=== PATIENT | female | born 1950 | race Caucasian/White ===

== ENCOUNTER 2023-04-04 16:30 | Inpatient (IN) | payer OTHER ==
--- OUTSIDE RECORDS SUMMARY | 2023-04-04 17:13 | XMS REPORT | Continuity of Care Document ---
:1950 Author Organization [facility] Address [address] [place] [address] [place] [id number] Care Team Providers Name Role Phone Ramiro Coe Primary Care Physician CHRETIEN_F Attending Clinician Unavailable Rosangela Mosquera RN Attending Clinician Unavailable Only, Ang Db Test Attending Clinician Unavailable Roseanne Pappas MD Attending Clinician ROSEANNE PAPPAS Attending Clinician Unavailable EDAROASH_Justin Attending Clinician Unavailable CHRETIEN_F Admitting Clinician Unavailable SCHAUBROECK_L Admitting Clinician Unavailable Payers Payer Name Policy Type Policy Number Effective Date Expiration Date S sam [place]: [id number] 2013 [employer] 00:00:00 - [facility] (AD[facility]) [id number] 2011 00:00:00 [place]: [id number] 2013 [employer] 00:00:00 Problems Condition Condition Condition Status Onset Resolution Last Treating Co mments Source Name Details Category Date Date Treatment Clinician Date Acute Acute Problem Active 2021-10 [place] pharyngiti Pharyngiti 1-28 [facility] Cough Cough Problem Active 2021-10 [place] 1-28 [facility] 00:[facility]: ty [facility] Chronic Chronic Problem Active [place] depression Depression 2-25 [facility] 00:00: ty 00 [facility] Neuropathy Neuropathy Problem Active S [facility] 2-25 [facility] 00:00: ty 00 [facility] Essential Essential Problem Active [facility] vanessa hypertensi Hypertensi 2-25 [email or web address] Rheumatoid Rheumatoid Problem Active [facility] arthritis Arthritis 2 Comm uni 00:00: ty 00 [facility] Osteoarthr Osteoarthr Problem Active S [facility] itis itis 12-11 Communi 00:00: ty 00 [facility] Fibromyalg Fibromyalg Problem Active S we[facility]y ia ia 12-11 Communi 00:00: ty 00 [facility] Allergies, Adverse Reactions, Alerts Allergy Allergy Status Severity Reaction(s) Onset Inactive Treating Comm ents Source Name Type Date Date Clinician Erythrom Allergy Active Severe Vomiting Sween y ycin to [facility] e [facility] Xarelto Allergy Active Moderate Other [place] to [facility] ty e [facility] Zofran Allergy Active Moderate Other [place] to [facility] ty e [facility] Ativan Allergy Active Severe Other [place] to [facility] ty e [facility] Bactrim Allergy Active Moderate Hives [place] to [facility] ty e [facility] NO KNOWN Drug Active [facility] ALLERGIE Class ity of S [facility] Social History Social Habit Start Date Stop Date Quantity Comments Source Sex Assigned At [birth year] [facility] 00:00:00 00:00:00 [facility] Smoking Status Start Date Stop Date Source Unknown if ever smoked [facility] Never Smoker [facility] Medications Ordered Filled Start Stop Current Ordering Indication Dosage Frequency Signature Comments Components Source Medication Medication Date Date Medication? Clinician (SIG) Name Name amitriptyli amitriptyli No 3 Q1D amitriptyl [place] ne 25 mg ne 25 mg ine 25 mg Co mmuni tablet Take tablet Take tablet ty 3 tablets 3 tablets Take 3 [facility] fat[facility] every day every day tablets l by oral by oral every day Clin ics route at route at by oral bedtime. bedtime. route at bedtime. benzonatate benzonatate No 1capsul TID benzonatat [place] 200 mg 200 mg e(s) e 200 mg Communi capsule capsule capsule ty Take 1 Take 1 Take 1 Hospita capsule 3 capsule 3 capsule 3 l times a day times a day times a Clinics by oral by oral day by route as route as oral route needed for needed for as needed 10 days. 10 days. for 10 days. Bystolic 10 Bystolic 10 No 1 Q1D Bystolic [place] mg tablet mg tablet 10 mg Comm uni Take 1 Take 1 tablet ty tablet tablet Take 1 Hospita every day every day tablet l by oral by oral every day Clin ics route at route at by oral bedtime. bedtime. route at bedtime. Bystolic 5 Bystolic 5 No 1 Q1D Bystolic 5 [place] mg tablet mg tablet mg tablet Communi Take 1 Take 1 Take 1 ty tablet tablet tablet Hospita every day every day every day l by oral by oral by oral Clinic s route. route. route. cefdinir cefdinir No 1capsul Q12H cefdinir [place] 300 mg 300 mg e(s) 300 mg Communi capsule capsule capsule ty Take 1 Take 1 Take 1 Hospita capsule capsule capsule l every 12 every 12 every 12 Cli nics hours by hours by hours by oral route oral route oral route for 10 for 10 for 10 days. days. days. clonidine clonidine No clonidine [place] 0.1 mg/24 0.1 mg/24 0.1 mg/24 Communi hr weekly hr weekly hr weekly ty transdermal transdermal transderma Hospita patch APPLY patch APPLY l patch l 1 PATCH 1 PATCH APPLY 1 Clinic s TOPICALLY TOPICALLY PATCH TO THE SKIN TO THE SKIN TOPICALLY EVERY 7 EVERY 7 TO THE DAYS DAYS SKIN EVERY 7 DAYS clonidine clonidine No clonidine [place] HCl 0.2 1 HCl 0.2 1 HCl 0.2 1 Communi po qam and po qam and po qam and ty 2 po qpm 2 po qpm 2 po qpm [facility] fat[facility] l Clinics cyclobenzap cyclobenzap No cyclobenza [place] rine 10 mg rine 10 mg fady 10 Communi tablet TAKE tablet TAKE mg tablet ty 1 TABLET BY 1 TABLET BY TAKE 1 Hospita MOUTH THREE MOUTH THREE TABLET BY l TIMES DAILY TIMES DAILY MOUTH Clinics THREE TIMES DAILY famotidine famotidine No 1 BID famotidine [place] 20 mg 20 mg 20 mg Communi tablet Take tablet Take tablet ty 1 tablet 1 tablet Take 1 Hospi ta twice a day twice a day tablet l by oral by oral twice a Clinic s route. route. day by oral route. hydrocodone hydrocodone No hydrocodon [place] 7.5 7.5 e 7.5 Communi mg-acetamin mg-acetamin mg-acetami ty ophen 325 ophen 325 nophen 325 Hospita mg tablet mg tablet mg tablet l TAKE 1 TAKE 1 TAKE 1 Clinics TABLET BY TABLET BY TABLET BY MOUTH THREE MOUTH THREE MOUTH TIMES DAILY TIMES DAILY THREE TIMES DAILY lidocaine 5 lidocaine 5 No lidocaine [place] % topical % topical 5 % Commu ni patch APPLY patch APPLY topical ty 1 PATCH 1 PATCH patch Hospita EVERY DAY EVERY DAY APPLY 1 l AND REMOVE AND REMOVE PATCH Cl inics AFTER 12 AFTER 12 EVERY DAY HOURS HOURS AND REMOVE AFTER 12 HOURS pioglitazon pioglitazon No pioglitazo [place] e 15 mg e 15 mg ne 15 mg Commu ni tablet TAKE tablet TAKE tablet ty 1 TABLET BY 1 TABLET BY TAKE 1 Hospita MOUTH EVERY MOUTH EVERY TABLET BY l DAY DAY MOUTH Clinics EVERY DAY Prilosec 10 Prilosec 10 No 1capsul Q1D Prilosec [place] mg mg e(s) 10 mg Communi capsule,del capsule,del capsule,de ty ayed ayed layed Hospita release release release l Take 1 Take 1 Take 1 Clinics capsule capsule capsule every day every day every day by oral by oral by oral route. route. route. Procardia Procardia No 1 Q1D Procardia [place] XL 60 mg XL 60 mg XL 60 mg Com leah tablet,exte tablet,exte tablet,ext ty nded nded ended Hospita release release release l Take 1 Take 1 Take 1 Clinics tablet tablet tablet every day every day every day by oral by oral by oral route. route. route. Proventil Proventil No 2puff(s Q6H Proventil [place] HFA 90 HFA 90 ) HFA 90 Communi mcg/actuati mcg/actuati mcg/actuat ty on aerosol on aerosol ion [facility] fat[facility] inhaler inhaler aerosol l Inhale 2 Inhale 2 inhaler Clin ics puffs every puffs every Inhale 2 6 hours by 6 hours by puffs inhalation inhalation every 6 route as route as hours by directed. directed. inhalation route as directed. Requip 1 mg Requip 1 mg No 3 Q1D Requip 1 [place] tablet Take tablet Take mg tablet Communi 3 tablets 3 tablets Take 3 ty every day every day tablets Ho spita by oral by oral every day l route at route at by oral Clin ics bedtime. bedtime. route at bedtime. Savella 50 Savella 50 No 1 BID Savella 50 [place] mg tablet mg tablet mg tablet Communi Take 1 Take 1 Take 1 ty tablet tablet tablet Hospita twice a day twice a day twice a l by oral by oral day by Clinics route. route. oral route. sertraline sertraline No sertraline [place] 100 mg 100 mg 100 mg Communi tablet TAKE tablet TAKE tablet ty 1 TABLET BY 1 TABLET BY TAKE 1 Hospita MOUTH EVERY MOUTH EVERY TABLET BY l DAY DAY MOUTH Clinics EVERY DAY Synthroid Synthroid No Synthroid [place] 300 mcg 300 mcg 300 mcg Commun i tablet TAKE tablet TAKE tablet ty 1 TABLET BY 1 TABLET BY TAKE 1 Hospita MOUTH EVERY MOUTH EVERY TABLET BY l MORNING MORNING MOUTH Clinics EVERY MORNING Immunizations Ordered Immunization Filled Immunization Date Status Commen Source Name Name influenza, influenza, 2022-08-27 Completed [facility] ty unspecified unspecified 00:00:00 Hospital Cli nics formulation formulation COVID-19 COVID-19 2021-12-19 Completed [place] ty (SARS-COV-2) (SARS-COV-2) 00:00:00 Hospital C linics vaccine, unspecified vaccine, unspecified COVID-19 COVID-19 2020-11-21 Completed [place] Commun[facility] ty (SARS-COV-2) (SARS-COV-2) 00:00:00 [facility] C linics vaccine, unspecified vaccine, unspecified Vital Signs Vital Name Observation Time Observation Value Comments Source BP Diastolic 2022-09-13 00:00:00 45 mm[Hg] [facility] BP Systolic 2022-09-13 00:00:00 99 mm[Hg] [facility] Procedures Procedure Date / Time Performing Clinician Source Performed Total Replacement of Hip [facility] Thyroid Surgery [facility] Section [facility] Cholecystectomy [facility] Gastric Bypass [facility] Plan of Care Planned Activity Planned Date Details Comments Source Diagnostic Test 2022-09-13 rapid SARS CoV 2 Ag, [facility] Pending 00:00:00 QL IA, respiratory Hospital Clinics specimen [code = rapid SARS CoV 2 Ag, QL IA, respiratory specimen] Diagnostic Test 2022-09-13 rapid strep group A, [facility] Pending 00:00:00 throat [code = rapid Hospita Clinics strep group A, throat] Diagnostic Test 2022-09-13 rapid flu (A+B) [facility] Pending 00:00:00 [code = rapid flu Hospital linics (A+B)] Instructions [facility] Encounters Start End Encounter Admission Attending Care Care Encounter Source Date/Time Date/Time Type Type Clinicians Facility Department ID 2022-09-13 2022-09-13 Outpatient CHRETIEN_F [facility] [id number] - [place] 00:00:00 00:00:00 128 Commun i ty Hospita l Clinics 2022-09-13 2022-09-13 [facility] [place] [facility] [place] [id number] [place] 00:00:00 00:00:00 Gayatri Degroot [facility] [employer] Hospital - ty C: [address] [facility], CL[address], [place] [address] , Ph. 2021-10-13 2021-10-13 Letter VEL Mosquera [id number] Univers 00:00:00 00:00:00 (Out) Rosangela DRUMMOND [id number] it y of [facility] [id number] Stephen as [id number] [address] 2021-10-12 2021-10-12 Laboratory Only, Ang Db Test [facility] [id number] Univers 13:00:00 13:15:00 Only Roseanne Pappas [facility] [id number] ity [facility] [id number] Stephen as CAMPBELL?BLEA [id number] [address] MEDICAL OFFICE [facility]ILDING 2021-10-12 2021-10-12 Outpatient R ELYSE [facility] [id number] Univers 13:00:00 13:00:00 ROSEANNE boone [facility] 2019-03-15 2019-03-15 Outpatient LADI [facility] [id number] [place] 00:00:00 00:00:00 _L 530 Commun i [facility] l Clinics Results This patient has no known results.
[2023-04-04] MEDS ORDERED: ONDANSETRON 4 MG/2 ML VIAL IV PRN (17:50)
[2023-04-04] MEDS ORDERED: VANCOMYCIN 1 GM in NA CHLORIDE 0.9% 250 ML IVPB ONE ×2 (18:00→21:00)
[2023-04-04 18:35] LABS: Absolute Lymphocytes (CBC) 3.2 K/uL (0.7-4.9); Hematocrit 33.7 % (36.0-45.0); Lymphocytes % 36.3 % (15.3-44.8); MCV 90.4 fL (80-100); MPV 7.6 fL (7.6-11.3); RBC Red Blood Cell Count 3.73 M/uL (3.86-4.86)
--- NOTE | 2023-04-04 18:41 | RAD REPORT ---
EXAM DESCRIPTION: RAD - Foot Right 3 View - 04/04/2023 6:09 pm CLINICAL HISTORY: cellulitis COMPARISON: No comparisons TECHNIQUE: Right foot, 3 views. FINDINGS: Destructive changes and osseous lucency surrounding the fifth digit proximal and probably distal interphalangeal joints. No dislocation or periosteal reaction. Soft tissue swelling about the fifth digit. No soft tissue gas. Moderate calcaneal spur. IMPRESSION: Osseous lucency and destructive changes along the fifth digit as above, raising concern for osteomyelitis.
[2023-04-04] MEDS ORDERED: GLUCAGON 1 MG/VIAL IM PRN ×2 (19:02→20:00)
[2023-04-04] MEDS ORDERED: D50W 25 GM/50 ML SYRINGE IV PRN (19:02)
[2023-04-04] MEDS ORDERED: D10W 125 ML IV PRN (19:17)
[2023-04-04] MEDS: INSULIN -REGULAR HUMAN 50 UNIT/0.5 ML ML SQ SCH (20:38)
[2023-04-04 20:39] VITALS: BMI 39.3
[2023-04-04] MEDS ORDERED: VANCOMYCIN 1 GM in NA CHLORIDE 0.9% 250 ML IVPB SCH (21:00)
[2023-04-05 01:26] LABS: Specific Gravity 1.025 (1.005-1.030); Urine Bacteria None Seen /HPF (<20); Urine Bilirubin NEGATIVE (Negative); Urine Blood Negative (Negative); Urine Clarity Clear (Clear); Urine Color Light-Yellow (Yellow); Urine Glucose 4+ (Over) (Negative); Urine Mucus Slight /HPF (None Seen); Urine Protein TRACE (Negative); Urine RBC <5 /HPF (None Seen); Urine Urobilinogen Normal (Normal); Urine pH 5.5 (5.0-7.0)
[2023-04-05] MEDS ORDERED: VANCOMYCIN 1 GM in NA CHLORIDE 0.9% 250 ML IVPB SCH (06:00)
[2023-04-05] MEDS: INSULIN -REGULAR HUMAN 50 UNIT/0.5 ML ML SQ SCH ×4 (07:30→21:05)
[2023-04-05 07:37] LABS: Albumin 2.8 g/dL (3.4-5.0); Bilirubin Total 0.3 mg/dL (0.2-1.0); Potassium 3.8 mEq/L (3.5-5.1); Protein, Total 6.8 g/dL (6.4-8.2)
[2023-04-05] MEDS ORDERED: LORTAB PO PRN (14:46)
[2023-04-05] MEDS ORDERED: CYCLOBENZAPRINE 10 MG TAB PO PRN (14:46)
[2023-04-05] MEDS ORDERED: HOME MED 1 EA UNK (Clonidine Hcl [Clonidine Hcl Er] 0.1 MG Tab.Er.12h) PO PRN (14:46)
--- NOTE | 2023-04-05 15:28 | PN ---
Date of Progress Note: 04/05/2023 The patient's wounds, however, already improved on the vancomycin doses. We will continue with her h ome medications except for a sliding scale insulin and continue the present regimen. Slight elevation of the creatinine, we will continue to monitor this as well. HR/MODL Voice ID: [id number] Report ID: [id number]
[2023-04-05] MEDS ORDERED: MECLIZINE HCL 12.5 MG TAB PO PRN (17:28)
[2023-04-05] MEDS: Milnacipran Hcl [Savella] 50 MG Tablet PO SCH (18:00)
[2023-04-05 18:09] LABS: Absolute Lymphocytes (CBC) 2.5 K/uL (0.7-4.9); Hematocrit 34.2 % (36.0-45.0); Lymphocytes % 28.8 % (15.3-44.8); MPV 7.7 fL (7.6-11.3); RBC Red Blood Cell Count 3.76 M/uL (3.86-4.86)
[2023-04-05 18:19] LABS: Potassium 3.9 mEq/L (3.5-5.1)
--- NOTE | 2023-04-05 18:29 | RAD REPORT ---
EXAM DESCRIPTION: CT - Abdomen Wo Contrast - 04/05/2023 4:20 pm CLINICAL HISTORY: Abdominal pain COMPARISON: None TECHNIQUE: Computed axial tomography from the diaphragm to the iliac crest was obtained. Oral and IV contrast not given. All CT scans are performed using dose optimization technique as appropriate and may include automated exposure control or mA/KV adjustment according to patient size. FINDINGS: The evaluation of solid organs, bowel and vessels is limited secondary to the lack of IV c ontrast administration. 12 millimeter calculus left renal pelvis. No hydronephrosis. Several small right renal calculi. No hydronephrosis. The liver, spleen, pancreas and adrenals grossly normal. Cholecystectomy The visualized bowel caliber and wall thickness is normal Postsurgical changes involve the stomach. IMPRESSION: Bilateral nonobstructing renal calculi
[2023-04-05] MEDS ORDERED: NEBIVOLOL HCL 5 MG TAB PO SCH (21:00)
[2023-04-05] MEDS: DOCUSATE NA 100 MG CAP PO SCH (21:00)
[2023-04-05] MEDS ORDERED: HOME MED 1 EA UNK (Nebivolol Hcl [Bystolic] 10 MG Tablet) PO SCH (21:00)
[2023-04-05] MEDS ORDERED: HOME MED 1 EA UNK (Clonidine Hcl [Clonidine Hcl Er] 0.1 MG Tab.Er.12h) PO SCH (21:00)
[2023-04-05] MEDS: ROPINIROLE HCL 1 MG TAB PO SCH (21:03)
[2023-04-05] MEDS: CALCIUM CARBONATE 500 MG TAB PO SCH (21:04)
[2023-04-05] MEDS: VITAMIN D 5,000 UNIT CAP PO SCH (21:04)
[2023-04-05] MEDS: AMITRIPTYLINE 25 MG TAB PO SCH (21:04)
[2023-04-05] MEDS: FAMOTIDINE 20 MG TAB PO SCH (21:04)
[2023-04-05] MEDS: NEBIVOLOL HCL 20 MG TABLET PO SCH (21:42)
[2023-04-06] MEDS: LEVOTHYROXINE SOD 0.1 MG TAB PO SCH (05:52)
[2023-04-06] MEDS: Omeprazole [Prilosec] 40 MG Capsule.Dr PO SCH (05:53)
[2023-04-06] MEDS: Milnacipran Hcl [Savella] 50 MG Tablet PO SCH ×2 (05:54→17:18)
[2023-04-06] MEDS: INSULIN -REGULAR HUMAN 50 UNIT/0.5 ML ML SQ SCH ×4 (07:30→21:00)
[2023-04-06] MEDS ORDERED: VANCOMYCIN 1.5 GM in NA CHLORIDE 0.9% 500 ML IVPB SCH (08:00)
[2023-04-06] MEDS: DOCUSATE NA 100 MG CAP PO SCH ×2 (08:28→21:01)
[2023-04-06] MEDS: CALCIUM CARBONATE 500 MG TAB PO SCH ×2 (08:36→21:00)
[2023-04-06] MEDS: NIFEDIPINE XL 60 MG TABLET PO SCH (08:36)
[2023-04-06] MEDS: Dapagliflozin Propanediol [Farxiga] 10 MG Tablet PO SCH (08:36)
[2023-04-06] MEDS: ENOXAPARIN 30 MG/0.3 ML SQ SCH (08:36)
--- NOTE | 2023-04-06 12:47 | PN ---
Date of Progress Note: 04/06/2023 Patient states she does feel considerably better as far as her legs are concerned. Still quite tende r on the heel area, although seems to be healing quite well. The toe does still show some cellulitis . Area has been cultured. We are awaiting the results. We will continue on the vancomycin. HR/MODL Voice ID: [id number] Report ID: [id number]
--- NOTE | 2023-04-06 13:15 | RAD REPORT ---
EXAM DESCRIPTION: MRI - Foot Right Wo Cont - 04/06/2023 1:02 pm CLINICAL HISTORY: f/u suspicious xray COMPARISON: Foot Right 3 View dated 04/04/2023; Ankle Left Wo Cont dated 03/17/2023 TECHNIQUE: Multiplanar multisequence MRI of the right foot, obtained without IV contrast. FINDINGS: Soft tissue defect along the dorsal aspect of the distal fifth toe. Surrounding soft tissu e swelling, and subcutaneous edema which extends along the dorsal aspect of the lateral forefoot to m idfoot. Marrow signal abnormalities with low T1 signal, and increased T2 signal along the distal and middle f ifth toe phalanges with some collapse of the middle phalanx appreciated. Similar milder signal abnorm alities along the proximal phalanx extending to the proximal metaphysis with some collapse of the hea d phalanx appreciated. Joint alignment is maintained. No marrow signal abnormalities of the remainder of the digits or the metatarsals. No appreciable fluid collections within limits of noncontrast evaluation. Pronounced fatty infiltration of the deep muscles of the foot. The major tendinous structures are unr emarkable. IMPRESSION: Marrow signal abnormalities suggesting osteomyelitis involving the fifth toe phalanges, sparing the base of the proximal phalanx. Destructive changes along the middle phalanx and head of th e proximal phalanx are.. No appreciable fluid collections.
[2023-04-06] MEDS: HYDROCODONE/APAP 7.5/325 MG TAB PO PRN (14:13)
[2023-04-06 18:07] LABS: Absolute Lymphocytes (CBC) 2.9 K/uL (0.7-4.9); Hematocrit 30.5 % (36.0-45.0); Lymphocytes % 36.7 % (15.3-44.8); MCV 91.3 fL (80-100); MPV 7.8 fL (7.6-11.3); RBC Red Blood Cell Count 3.34 M/uL (3.86-4.86)
[2023-04-06 18:12] LABS: Potassium 3.9 mEq/L (3.5-5.1)
[2023-04-06] MEDS: NEBIVOLOL HCL 20 MG TABLET PO SCH (20:59)
[2023-04-06] MEDS: AMITRIPTYLINE 25 MG TAB PO SCH (21:00)
[2023-04-06] MEDS: ROPINIROLE HCL 1 MG TAB PO SCH (21:00)
[2023-04-06] MEDS: FAMOTIDINE 20 MG TAB PO SCH (21:00)
[2023-04-06] MEDS: SERTRALINE HCL 50 MG TAB PO SCH (21:01)
[2023-04-06] MEDS: VITAMIN D 5,000 UNIT CAP PO SCH (21:01)
[2023-04-06] MEDS: HYDROCORTISONE ACETATE 25MG SUPP PR PRN (23:59)
[2023-04-07] MEDS: Milnacipran Hcl [Savella] 50 MG Tablet PO SCH ×2 (06:00→07:59)
[2023-04-07] MEDS: LEVOTHYROXINE SOD 0.1 MG TAB PO SCH (06:00)
[2023-04-07] MEDS: Omeprazole [Prilosec] 40 MG Capsule.Dr PO SCH (06:00)
[2023-04-07] MEDS: INSULIN -REGULAR HUMAN 50 UNIT/0.5 ML ML SQ SCH ×4 (07:30→21:10)
[2023-04-07] MEDS: Dapagliflozin Propanediol [Farxiga] 10 MG Tablet PO SCH (07:59)
[2023-04-07] MEDS: MUPIROCIN 2% OINT 22GM TUBE TOP SCH ×3 (09:00→21:10)
[2023-04-07] MEDS: ENOXAPARIN 30 MG/0.3 ML SQ SCH (09:04)
[2023-04-07] MEDS: NIFEDIPINE XL 60 MG TABLET PO SCH (09:04)
[2023-04-07] MEDS: DOCUSATE NA 100 MG CAP PO SCH ×2 (09:04→21:10)
[2023-04-07] MEDS: CALCIUM CARBONATE 500 MG TAB PO SCH ×2 (09:04→21:10)
[2023-04-07] MEDS: HYDROCODONE/APAP 7.5/325 MG TAB PO PRN (11:17)
[2023-04-07] MEDS ORDERED: VANCOMYCIN 1.5 GM in NA CHLORIDE 0.9% 500 ML IVPB SCH (18:00)
[2023-04-07 18:18] LABS: Potassium 3.9 mEq/L (3.5-5.1)
[2023-04-07 18:23] LABS: Absolute Lymphocytes (CBC) 2.9 K/uL (0.7-4.9); Lymphocytes % 39.6 % (15.3-44.8); MCV 90.7 fL (80-100); MPV 7.7 fL (7.6-11.3); RBC Red Blood Cell Count 3.53 M/uL (3.86-4.86)
--- NOTE | 2023-04-07 19:34 | PN ---
Date of Progress Note: 04/06/2023 The patient's problem continues to be the 5th digit with a positive osteo of the distal 2 phalanges a nd the sparing of the proximal. Discussion of the possibilities with the patient included IV antibio tics in the form of vancomycin with a PICC line versus a surgical procedure. She actually preferred to surgical procedure and at this stage, I intend to agree; however, before definitive recommendation will be made, we will discuss further with the surgeon and Infectious Disease. HR/MODL Voice ID: [id number] Report ID: [id number]
[2023-04-07] MEDS: ROPINIROLE HCL 1 MG TAB PO SCH (21:07)
[2023-04-07] MEDS: NEBIVOLOL HCL 20 MG TABLET PO SCH (21:07)
[2023-04-07] MEDS: SERTRALINE HCL 50 MG TAB PO SCH (21:09)
[2023-04-07] MEDS: FAMOTIDINE 20 MG TAB PO SCH (21:09)
[2023-04-07] MEDS: AMITRIPTYLINE 25 MG TAB PO SCH (21:09)
[2023-04-07] MEDS: VITAMIN D 5,000 UNIT CAP PO SCH (21:10)
[2023-04-07] MEDS: HYDROCORTISONE ACETATE 25MG SUPP PR PRN (21:29)
[2023-04-08] MEDS: Milnacipran Hcl [Savella] 50 MG Tablet PO SCH ×2 (06:00→17:07)
[2023-04-08] MEDS: LEVOTHYROXINE SOD 0.1 MG TAB PO SCH (06:00)
[2023-04-08] MEDS: Omeprazole [Prilosec] 40 MG Capsule.Dr PO SCH (06:00)
[2023-04-08] MEDS: HYDROCODONE/APAP 7.5/325 MG TAB PO PRN ×2 (06:14→14:00)
[2023-04-08] MEDS: INSULIN -REGULAR HUMAN 50 UNIT/0.5 ML ML SQ SCH ×4 (07:30→20:58)
[2023-04-08] MEDS: Dapagliflozin Propanediol [Farxiga] 10 MG Tablet PO SCH (09:00)
--- NOTE | 2023-04-08 09:24 | P.CNS ---
Date of Consult: 04/08/23 Reason for Consult: Osteomyelitis History of Present Illness: Patient is a 73 yo female with a history of HTN, DM2, RA, gastroparesis who was admitted to the hospital for evaluation of osteomyelitis possible amputation of right 5th toe. She is seen by wound care clinic outpatient for diabetic foot ulcer of left heel and right 5th toe. MRI right foot revealing "Marrow signal abnormalities suggesting osteomyelitis involving the fifth toe phalanges, sparing the base of the proximal phalanx. Destructive changes along the middle phalanx and head of the proximal phalanx. No appreciable fluid collections." ID consulted for osteomyelitis. Allergies abatacept [From Orencia] Allergy (Severe, Verified 02/02/23 17:17) respiratory distress maltose [From Orencia] Allergy (Severe, Verified 02/02/23 17:17) respiratory distress aspirin Allergy (Intermediate, Verified 02/02/23 17:17) dyspepsia erythromycin base [Erythromycin Base] Allergy (Intermediate, Verified 02/02/23 17:17) Rash leflunomide [From Arava] Allergy (Intermediate, Verified 02/02/23 17:17) cellulitis ondansetron HCl [From Zofran] Allergy (Intermediate, Verified 02/02/23 17:17) Headache rifampin Allergy (Intermediate, Verified 02/02/23 17:17) Joint Pain Sulfa (Sulfonamide Antibiotics) Allergy (Intermediate, Verified 02/02/23 17:17) Hives/Rash tofacitinib citrate [From Xeljanz] Allergy (Intermediate, Verified 02/02/23 17:17) Shortness of breath lorazepam [From Ativan] Adverse Reaction (Severe, Verified 02/02/23 17:17) confusion diphenhydramine HCl [From Benadryl] Adverse Reaction (Mild, Verified 02/02/23 17:17) Agitation rivaroxaban [From Xarelto] Adverse Reaction (Verified 02/02/23 17:17) Joint Pain aspirin Allergy (Uncoded 02/02/23 17:17) Unknown Biologics for Arthritis Allergy (Uncoded 02/02/23 17:17) Unknown Home medications list reviewed: Yes Home Medications: Cyclobenzaprine [Flexeril*] 1 tab PO TID PRN 01/22/21 Dapagliflozin Propanediol [Farxiga] 1 tab PO DAILY 01/22/21 Famotidine [Pepcid] 4 tab PO BEDTIME 01/22/21 Lortab 7.5 Mg 1 tab PO TID PRN 01/22/21 Milnacipran HCl [Savella] 1 tab PO BID 6AM 6PM 01/22/21 Nifedipine [Procardia Xl] 1 tab PO DAILY 01/22/21 Ropinirole HCl [Requip] 1 tab PO BEDTIME 01/22/21 cloNIDine HCL [Clonidine HCl ER] 1 tab PO DAILY PRN 01/22/21 cloNIDine HCL [Clonidine HCl ER] 2 tab PO BEDTIME 01/22/21 Amitriptyline [Elavil*] 75 mg PO BEDTIME 04/04/23 Calcium Citrate 400 mg PO BID 04/04/23 Cholecalciferol (Vitamin D3) [Vitamin D 5,000 IU Cap*] 1 cap PO BEDTIME 04/04/23 Docusate Sodium 100 mg PO BID 04/04/23 Insulin Degludec [Tresiba] 16 unit SQ DAILY 04/04/23 Levothyroxine [Synthroid] 0.3 mg PO [id number] 04/04/23 Meclizine HCl 25 mg PO PRN PRN 04/04/23 Nebivolol HCl [Bystolic] 20 mg PO BEDTIME 04/04/23 Omeprazole [Prilosec] 80 mg PO [id number] 04/04/23 Pioglitazone HCl [Actos] 10 mg PO 04/04/23 - Past Medical/Surgical History Diabetic: Yes -: MRSA -: HTN -: DM -: RHEUMATOID ARTHRITIS -: OA -: GASTROPARESIS -: DVT X3 -: PNEUMONIA -: CELLULITIS BOTH LEGS -: POLIO -: FIBROMYALGIA -: THYROID CA-1961 -: Thyroidectomy -: Tonsillectomy -: Cholecystectomy -: Hysterectomy -: -: Gastric Bypass -: Panniculectomy - Family History Father Medical History: Heart disease, Hypertension Mother Medical History: Hypertension, Cancer Sister Medical History: Hypertension - Social History Smoking Status: Never smoker, Unknown if ever smoked Alcohol use: No CD- Drugs: No Caffeine use: Yes Review of Systems 10-point ROS is otherwise unremarkable Musculoskeletal: Foot Pain Physical Examination Temp Pulse Resp BP Pulse Ox 97.8 F 59 16 127/56 L 96 04/08/23 07:57 04/08/23 07:57 04/08/23 07:57 04/08/23 07:57 04/08/23 07:57 General: Alert, Oriented x3 HEENT: Atraumatic, Normocephalic Neck: Supple, JVD not distended Respiratory: Clear to auscultation bilaterally, Normal air movement Cardiovascular: No edema, Normal pulses Gastrointestinal: Normal bowel sounds, Soft and benign, Non-distended Musculoskeletal: No clubbing, No swelling Integumentary: No rashes, Diabetic ulcer (left heel and right 5th toe) Neurological: Normal speech, Normal tone, Normal affect Laboratory Data (last 24 hrs) 04/07/23 17:36: Sodium 138, Potassium 3.9, BUN 21 H, Creatinine 1.03 H, Glucose 147 H 04/07/23 17:36: WBC 7.30, Hgb 10.4 L, Hct 32.0 L, Plt Count 275 Imagings Data: - MRI Right Foot 04/06: "Marrow signal abnormalities suggesting osteomyelitis involving the fifth toe phalanges, sparing the base of the proximal phalanx" - CT Abdomen 04/06: "Bilateral nonobstructing renal calculi" Conclusions/Impression: Problem List Hypertension DM2 RA OA Gastroparesis Hx gastric sleeve Fibromyalgia Osteomyelitis Right Foot MRSA Right Foot Wound - Patient has been on and off antibiotics since October for chronic right heel ulcer. Seen by wound care clinic and PCP as outpatient. - MRI Right Foot 04/06 reporting osteomyelitis of right 5th toe - Right foot wound culture 04/06: Methicillin-Resistant Staphylococcus aureus - Currently on Vancomycin IV (started 04/07) Recommendations Osteomyelitis of right fifth toe. 2 options available for patient at this time either amputation of 5th toe or continue IV antibiotic for [address] Coe and Dr. George, patient to decide which route she would like to take. Dr. Coe, Dr. George and have all spoken with patient regarding treatment plan options. Patient to decide surgical or medical management route. - If medical management route, we recommend continuing Vancomycin IV for 6 weeks duration. Patient with gastroparesis, likely poor candidate for oral antibiotic therapy. - Continue wound care per surgery/wound care team. - Nasal swab for staph colonization pending. If positive, [facility] will follow up with patient as needed. Case discussed with Bharati Mccartney. Thank you Dr. Coe for consult.
[2023-04-08] MEDS: NIFEDIPINE XL 60 MG TABLET PO SCH (09:52)
[2023-04-08] MEDS: ENOXAPARIN 30 MG/0.3 ML SQ SCH (09:52)
[2023-04-08] MEDS: CALCIUM CARBONATE 500 MG TAB PO SCH ×2 (09:54→20:56)
[2023-04-08] MEDS: DOCUSATE NA 100 MG CAP PO SCH ×2 (09:54→20:55)
[2023-04-08] MEDS: MUPIROCIN 2% OINT 22GM TUBE TOP SCH ×2 (09:55→20:59)
[2023-04-08] MEDS: VANCOMYCIN 1.5 GM in NA CHLORIDE 0.9% 500 ML IVPB SCH (17:06)
[2023-04-08 18:42] LABS: Absolute Lymphocytes (CBC) 2.7 K/uL (0.7-4.9); Hematocrit 33.7 % (36.0-45.0); Lymphocytes % 36.5 % (15.3-44.8); MCV 91.5 fL (80-100); MPV 7.8 fL (7.6-11.3); RBC Red Blood Cell Count 3.68 M/uL (3.86-4.86)
[2023-04-08 18:44] LABS: Potassium 3.7 mEq/L (3.5-5.1)
[2023-04-08] MEDS: VITAMIN D 5,000 UNIT CAP PO SCH (20:55)
[2023-04-08] MEDS: NEBIVOLOL HCL 20 MG TABLET PO SCH (20:55)
[2023-04-08] MEDS: FAMOTIDINE 20 MG TAB PO SCH (20:55)
[2023-04-08] MEDS: ROPINIROLE HCL 1 MG TAB PO SCH (20:56)
[2023-04-08] MEDS: AMITRIPTYLINE 25 MG TAB PO SCH (20:56)
[2023-04-08] MEDS: SERTRALINE HCL 50 MG TAB PO SCH (20:56)
--- NOTE | 2023-04-08 21:48 | RAD REPORT ---
EXAM DESCRIPTION: US - Extrem Venous W Compress [place] - 04/08/2023 9:36 pm CLINICAL HISTORY: eval circulation Bilateral leg edema and swelling. COMPARISON: Extremity Nonvascular Complete dated 12/13/2017 TECHNIQUE: Real-time sonographic interrogation of the left and right lower extremity deep venous sys tems was performed. FINDINGS: Normal compressibility, flow augmentation, phasic flow and spontaneous flow is identified in both the left and right lower extremity deep venous systems. IMPRESSION: No sonographic evidence of left or right lower extremity deep venous thrombosis.
--- NOTE | 2023-04-08 21:52 | RAD REPORT ---
EXAM DESCRIPTION: US - Lower Extremity Arterial Bilat - 04/08/2023 9:36 pm CLINICAL HISTORY: eval circulation Leg pain, claudication. COMPARISON: No comparisons TECHNIQUE: Bilateral lower extremity arterial Doppler examination was performed with waveform tracin g and velocity measurements. FINDINGS: Triphasic waveforms are seen throughout both lower extremity arterial systems to the level of the pop liteal arteries. Monophasic waveforms are seen bilaterally below the level of the popliteal arteries within the under water assistant ior tibial and dorsalis pedis arteries. IMPRESSION: [id number] bilateral infrapopliteal peripheral vascular disease.
[2023-04-09] MEDS: Milnacipran Hcl [Savella] 50 MG Tablet PO SCH ×2 (05:20→18:00)
[2023-04-09] MEDS: LEVOTHYROXINE SOD 0.1 MG TAB PO SCH (05:21)
[2023-04-09] MEDS: Omeprazole [Prilosec] 40 MG Capsule.Dr PO SCH (05:21)
[2023-04-09] MEDS: INSULIN -REGULAR HUMAN 50 UNIT/0.5 ML ML SQ SCH ×4 (07:30→21:39)
[2023-04-09] MEDS: Dapagliflozin Propanediol [Farxiga] 10 MG Tablet PO SCH (09:00)
[2023-04-09] MEDS: NIFEDIPINE XL 60 MG TABLET PO SCH (09:17)
[2023-04-09] MEDS: ENOXAPARIN 30 MG/0.3 ML SQ SCH (09:17)
[2023-04-09] MEDS: CALCIUM CARBONATE 500 MG TAB PO SCH ×2 (09:18→21:40)
[2023-04-09] MEDS: DOCUSATE NA 100 MG CAP PO SCH ×2 (09:19→21:38)
[2023-04-09] MEDS: HYDROCODONE/APAP 7.5/325 MG TAB PO PRN ×2 (09:19→21:55)
[2023-04-09] MEDS: MUPIROCIN 2% OINT 22GM TUBE TOP SCH ×2 (09:19→21:00)
[2023-04-09] MEDS: VANCOMYCIN 1.5 GM in NA CHLORIDE 0.9% 500 ML IVPB SCH (18:20)
[2023-04-09] MEDS: NEBIVOLOL HCL 20 MG TABLET PO SCH (21:00)
[2023-04-09] MEDS: AMITRIPTYLINE 25 MG TAB PO SCH (21:37)
[2023-04-09] MEDS: FAMOTIDINE 20 MG TAB PO SCH (21:40)
[2023-04-09] MEDS: SERTRALINE HCL 50 MG TAB PO SCH (21:40)
[2023-04-09] MEDS: VITAMIN D 5,000 UNIT CAP PO SCH (21:41)
[2023-04-09] MEDS: HYDROCORTISONE ACETATE 25MG SUPP PR PRN (21:55)
[2023-04-09] MEDS: ROPINIROLE HCL 1 MG TAB PO SCH (21:55)
[2023-04-10] MEDS: Omeprazole [Prilosec] 40 MG Capsule.Dr PO SCH (06:00)
[2023-04-10] MEDS: Milnacipran Hcl [Savella] 50 MG Tablet PO SCH ×2 (06:00→16:50)
[2023-04-10] MEDS: LEVOTHYROXINE SOD 0.1 MG TAB PO SCH (06:00)
[2023-04-10] MEDS: INSULIN -REGULAR HUMAN 50 UNIT/0.5 ML ML SQ SCH ×4 (07:30→21:00)
--- NOTE | 2023-04-10 08:01 | RAD REPORT ---
EXAM DESCRIPTION: US - UPPER EXTREMITY VENOUS UNILATE - 04/10/2023 6:39 am CLINICAL HISTORY: redness, bruising with pain to right forearm Arm swelling and pain COMPARISON: No comparisons FINDINGS: Right upper extremity venous system was interrogated with Doppler technique. Normal flow, compressibility and augmentation was noted. There is no DVT present. IMPRESSION: No evidence of right upper extremity deep venous thrombosis.
[2023-04-10] MEDS: Dapagliflozin Propanediol [Farxiga] 10 MG Tablet PO SCH (09:00)
[2023-04-10] MEDS: MUPIROCIN 2% OINT 22GM TUBE TOP SCH ×2 (09:00→21:12)
--- NOTE | 2023-04-10 09:04 | P.PN ---
Subjective Date of Service: 04/10/23 patient is doing well no complaints. Patient appears to be in good spirits. Review of Systems 10-point ROS is otherwise unremarkable Physical Examination - Vital Signs Temperature: 97.2 F Blood Pressure: 149/67 Pulse: 58 Respirations: 16 Pulse Ox (%): 94 - Physical Exam General: Alert, In no apparent distress HEENT: Atraumatic Cardiovascular: No edema Musculoskeletal: No clubbing, No swelling Neurological: Normal speech, Normal tone, Sensation intact, Cranial nerves 3-12 intact, Normal affect - Studies Microbiology Data (last 24 hrs): 04/08/23 14:10 Nostrils (Not Nasopharnyx) Culture & Sensitivity - Final Meth Resistant Staph Aureus Medications List Reviewed: Yes Assessment & Plan - Problems (Diagnosis) (1) Osteomyelitis Current Visit: Yes Status: Acute (2) Diabetic ulcer of right fifth toe Current Visit: No Status: Acute - Plan 1. Continue with IV antibiotic 2. Continue with local wound care 3. Wound care consultation/surgical consultation Appreciated; vascular consultation pending for Tuesday 4. Hep-Lock IV 5. Monitor CBC and renal function 6. Strict blood sugar monitoring 7. Pain control 8. GI and DVT prophylaxis Discharge Plan: Home Plan to discharge in: Greater than 2 days - Advance Directives Does patient have a Living Will: No Does patient have a Durable POA for Healthcare: No - Code Status/Comfort Care Code Status Assessed: Yes Code Status: Full Code Critical Care: No Time Spent Managing PTS Care (In Minutes): 35
[2023-04-10] MEDS: NIFEDIPINE XL 60 MG TABLET PO SCH (10:42)
[2023-04-10] MEDS: CALCIUM CARBONATE 500 MG TAB PO SCH ×2 (10:42→21:11)
[2023-04-10] MEDS: DOCUSATE NA 100 MG CAP PO SCH ×2 (10:42→21:11)
[2023-04-10] MEDS: ENOXAPARIN 30 MG/0.3 ML SQ SCH (10:42)
[2023-04-10 11:52] LABS: Absolute Lymphocytes (CBC) 2.7 K/uL (0.7-4.9); Hematocrit 30.9 % (36.0-45.0); Lymphocytes % 40.4 % (15.3-44.8); MCV 90.7 fL (80-100); MPV 7.9 fL (7.6-11.3); RBC Red Blood Cell Count 3.41 M/uL (3.86-4.86)
[2023-04-10 12:06] LABS: Magnesium 2.5 mg/dL (1.6-2.4); Potassium 3.7 mEq/L (3.5-5.1)
[2023-04-10] MEDS: HYDROCODONE/APAP 7.5/325 MG TAB PO PRN (16:50)
[2023-04-10] MEDS: VANCOMYCIN 1.5 GM in NA CHLORIDE 0.9% 500 ML IVPB SCH (16:51)
[2023-04-10] MEDS: NEBIVOLOL HCL 20 MG TABLET PO SCH (21:00)
[2023-04-10] MEDS: FAMOTIDINE 20 MG TAB PO SCH (21:10)
[2023-04-10] MEDS: SERTRALINE HCL 50 MG TAB PO SCH (21:10)
[2023-04-10] MEDS: ROPINIROLE HCL 1 MG TAB PO SCH (21:10)
[2023-04-10] MEDS: VITAMIN D 5,000 UNIT CAP PO SCH (21:11)
[2023-04-10] MEDS: AMITRIPTYLINE 25 MG TAB PO SCH (21:11)
[2023-04-11] MEDS: HYDROCODONE/APAP 7.5/325 MG TAB PO PRN ×3 (04:32→21:21)
[2023-04-11] MEDS: Omeprazole [Prilosec] 40 MG Capsule.Dr PO SCH (06:00)
[2023-04-11] MEDS: Milnacipran Hcl [Savella] 50 MG Tablet PO SCH ×2 (06:00→17:38)
[2023-04-11] MEDS: LEVOTHYROXINE SOD 0.1 MG TAB PO SCH (06:00)
[2023-04-11] MEDS: INSULIN -REGULAR HUMAN 50 UNIT/0.5 ML ML SQ SCH ×5 (07:30→20:58)
[2023-04-11] MEDS: DOCUSATE NA 100 MG CAP PO SCH ×2 (08:44→21:21)
[2023-04-11] MEDS: ENOXAPARIN 30 MG/0.3 ML SQ SCH (08:44)
[2023-04-11] MEDS: CALCIUM CARBONATE 500 MG TAB PO SCH ×2 (08:44→21:00)
[2023-04-11] MEDS: NIFEDIPINE XL 60 MG TABLET PO SCH (08:44)
[2023-04-11] MEDS: MUPIROCIN 2% OINT 22GM TUBE TOP SCH ×2 (08:45→21:00)
[2023-04-11] MEDS: Dapagliflozin Propanediol [Farxiga] 10 MG Tablet PO SCH (08:58)
--- NOTE | 2023-04-11 08:58 | P.PN ---
Date of Service: 04/11/23 Chief Complaint: diabetic foot ulcer Subjective: Patient seen and examined at bedside prior to surgery. A&Ox4. NAD. Daughter at bedside. Denies any new or worsening complaints. Physical Examination Temp Pulse Resp BP Pulse Ox 97.3 F 63 16 166/81 H 100 04/11/23 08:00 04/11/23 08:00 04/11/23 08:00 04/11/23 08:00 04/11/23 08:00 General: Alert, Oriented x4 HEENT: Atraumatic, Normocephalic Neck: Supple, JVD not distended Respiratory: Clear to auscultation bilaterally, Normal air movement Cardiovascular: No edema, Normal pulses Gastrointestinal: Normal bowel sounds, Soft and benign, Non-distended Musculoskeletal: No clubbing, No swelling Integumentary: No rashes, Diabetic ulcer of left heel and right 5th toe Neurological: Normal speech, Normal tone, Normal affect Laboratory Data - Reviewed Imagings Data: - MRI Right Foot 04/06: "Marrow signal abnormalities suggesting osteomyelitis involving the fifth toe phalanges, sparing the base of the proximal phalanx" - CT Abdomen 04/06: "Bilateral nonobstructing renal calculi" Microbiology Data - Reviewed Medication List: Reviewed Conclusions/Impression: Problem List Hypertension DM2 RA OA Gastroparesis Hx gastric sleeve Fibromyalgia Osteomyelitis Right Foot MRSA Right Foot Wound - Patient has been on and off antibiotics since October for chronic right heel ulcer. Seen by wound care clinic and PCP as outpatient. - MRI Right Foot 04/06 reporting osteomyelitis of right 5th toe - Right foot wound culture 04/06: Methicillin-Resistant Staphylococcus aureus - Currently on Vancomycin IV (started 04/07) - Nasal swab 04/08 positive for MRSA colonization. Recommendations - Osteomyelitis of right fifth toe: patient is scheduled for amputation today 04/[address] George - Nasal swab positive for MRSA colonization: Bactroban nasal and hibiclens bath - Continue wound care per surgery team. ID will follow up with patient as needed. Case discussed with Shahbaz Mccartney
--- NOTE | 2023-04-11 10:13 | P.PN ---
Subjective Date of Service: 04/08/23 Chief Complaint: multiple bilateral feet ulcers, osteomyelitis right 5th toe Subjective: No new changes Review of Systems General: As per HPI Cardiovascular: Unremarkable Gastrointestinal: Unremarkable Genitourinary: Unremarkable Musculoskeletal: Foot Pain, As per HPI Integumentary: Other (multipe feet ulcers with redness, hyperthernia of 5th toe , cellulitis right foot) Physical Examination - Vital Signs Temperature: 97.3 F Blood Pressure: 166/81 Pulse: 63 Respirations: 16 Pulse Ox (%): 100 - Physical Exam General: Alert, In no apparent distress, Oriented x3 HEENT: PERRLA Neck: Supple Cardiovascular: Abnormal pulses Gastrointestinal: Soft and benign Integumentary: Skin breakdown, Erythema, Warmth, Arterial ulcer (right 5th toe,and lateral foot) Neurological: Normal speech - Studies Laboratory Data (last 24 hrs) 04/10/23 11:33: Sodium 138, Potassium 3.7, BUN 19 H, Creatinine 1.08 H, Glucose 213 H, Magnesium 2.5 H 04/10/23 11:33: WBC 6.80, Hgb 9.8 L, Hct 30.9 L, Plt Count 266 Microbiology Data (last 24 hrs): 04/08/23 14:10 Nostrils (Not Nasopharnyx) Culture & Sensitivity - Final Meth Resistant Staph Aureus Imagings Data: MRI discussed with patient Medications List Reviewed: Yes Assessment And Plan - Plan We had a case productive discussion with infectious disease, Primary MD and patient . I was called for toe amputation after patient expressed her desire for the surgery instead of infectious disease jail IV abx optiond. Pt still want the 5th toe amputated after I explained BAR which include but not limited to infection, bleeding , damage to adjacent structures , non healing wound , MD even . Pt still need to evaluated for PVD and alternative to increase blood supply if needed since may also improve chances of healing at amputation site. Pt will still receive abx for the next few days to improve cellutis of foot.
[2023-04-11] MEDS ORDERED: NA CHLORIDE 0.9% 1,000 ML ONE (10:45)
[2023-04-11] MEDS ORDERED: propofoL 200 MG/20 ML VIAL IV ONE ×3 (11:05→11:59)
[2023-04-11] MEDS ORDERED: LIDOCAINE 2% MPF 5 ML VIAL ONE (11:05)
[2023-04-11] MEDS ORDERED: FENTANYL CITR 100 MCG/2 ML ONE ×2 (11:05→11:52)
[2023-04-11] MEDS ORDERED: MIDAZOLAM HCL 2 MG/2 ML INJ ONE (11:05)
[2023-04-11] MEDS ORDERED: BUPIVACAINE 0.5% PF 10 ML VIAL ONE (11:20)
[2023-04-11] MEDS: PROMETHAZINE INJ 25 MG/ML AMP ONE ×2 (12:20→12:28)
[2023-04-11] MEDS ORDERED: MORPHINE 4 MG/ML SYR ONE (12:38)
--- NOTE | 2023-04-11 12:38 | P.BOP ---
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
--- NOTE | 2023-04-11 15:49 | OP ---
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 Procedure: Right 5th toe amputation. Estimated Blood Loss: Less than 10 cc. Specimen: Toe. Findings: Patient has destructive osteomyelitis. We see the bones that mentioned before piece. We took this amputation up to normal bony area and normal tissue as patient request. Metatarsal head wa s not removed. Anesthesia: MAC plus local. Complications: None. Indication For Procedure: This is a case of a 73-year-old patient, who comes to us with multiple iss ues with bilateral feet open ulcers requiring long-term antibiotics, found also to have osteomyelitis of the fifth toe. They gave her the option of PICC line and long-term antibiotics. She does not wa nt that. She wants that toe removed, so the primary doctor came to me. We discussed the case with i nfectious disease service. The options were discussed with the patient. 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 She wants the toe removed, so the benefits, alternat luiz, and risks of right fifth toe amputation fully discussed, which include, but not limited to infe ction, bleeding, damage to adjacent structures, anesthesia complication, nonhealing wound, IA, and ev en . She also understand she may not relieve any symptoms, she might need more than one surgica l intervention. She understands to continue her plans to see vascular service since revascularizatio n of that area even though cannot save the toe, at least help us to heal properly and preserve the re st of the toes the best. The patient signed a consent. Description Of Procedure: Patient was brought to the operating room, placed in supine position. A t isma-out was called. Right foot was prepped and draped in sterile fashion. Local anesthesia was appl ied followed by a wedge incision. We tried to go not in the metatarsal region since that area is not involved. We tried to get with the toe itself. When we made the incision, we noticed the pieces of bone present. We took that amputation down to normal bone region, but felt the head was not involve d. This was requested by the patient. She want to leave as much as she can in that region, remove t he distal part of it. This extra skin helped us to after profuse irrigation close the area and appro ximate the skin. Patient tolerated the procedure well. Hemostasis was obtained before closure. Pat ient was sent to recovery in stable condition. NICOLA/LUIS EDUARDO Voice ID: [id number] Report ID: [id number]
[2023-04-11] MEDS: VANCOMYCIN 1.5 GM in NA CHLORIDE 0.9% 500 ML IVPB SCH (17:39)
[2023-04-11] MEDS: VANCOMYCIN 1.25 GM in NA CHLORIDE 0.9% 250 ML IVPB SCH (18:10)
[2023-04-11] MEDS: VITAMIN D 5,000 UNIT CAP PO SCH (20:58)
[2023-04-11] MEDS: ROPINIROLE HCL 1 MG TAB PO SCH (20:58)
[2023-04-11] MEDS: SERTRALINE HCL 50 MG TAB PO SCH (20:58)
[2023-04-11] MEDS: AMINO ACIDS/PROTEIN HYDROLYS 30 ML LIQUID.PKT PO SCH (21:00)
[2023-04-11] MEDS: NEBIVOLOL HCL 20 MG TABLET PO SCH (21:00)
[2023-04-11] MEDS: AMITRIPTYLINE 25 MG TAB PO SCH (21:21)
[2023-04-11] MEDS: FAMOTIDINE 20 MG TAB PO SCH (21:22)
--- NOTE | 2023-04-11 22:10 | PN ---
Date of Progress Note: 04/09/2023 Patient's ulcer on the foot continues to improve. However, a little toe where the osteo was diagnose d, has not shown much improvement at all both clinically and symptomatically and recurrence of the ce llulitis with some necrotic skin. Discussion with surgeon felt surgical procedure for the osteo part of fifth toe was probably indicated. We will continue with the vancomycin and obtain some vascular studies. The vascular studies did reveal mild to moderate changes below the popliteal compatible wit h good healing. HR/MODL Voice ID: [id number] Report ID: [id number]
--- NOTE | 2023-04-11 22:16 | PN ---
Date of Progress Note: 04/11/2023 Patient had a surgical procedure, tolerated well. See surgery report for details. She is receiving vancomycin tonight and inspection of the wound site will determine whether she should remain for 1 or 2 more doses before being discharged. HR/MODL Voice ID: [id number] Report ID: [id number]
[2023-04-12] MEDS: Omeprazole [Prilosec] 40 MG Capsule.Dr PO SCH (06:00)
[2023-04-12] MEDS: Milnacipran Hcl [Savella] 50 MG Tablet PO SCH ×2 (06:00→17:31)
[2023-04-12] MEDS: LEVOTHYROXINE SOD 0.1 MG TAB PO SCH (06:00)
[2023-04-12] MEDS: INSULIN -REGULAR HUMAN 50 UNIT/0.5 ML ML SQ SCH ×4 (07:30→21:07)
[2023-04-12] MEDS: Dapagliflozin Propanediol [Farxiga] 10 MG Tablet PO SCH (08:26)
[2023-04-12] MEDS: CALCIUM CARBONATE 500 MG TAB PO SCH ×2 (08:39→21:09)
[2023-04-12] MEDS: DOCUSATE NA 100 MG CAP PO SCH ×2 (08:39→21:09)
[2023-04-12] MEDS: NIFEDIPINE XL 60 MG TABLET PO SCH (08:39)
[2023-04-12] MEDS: ENOXAPARIN 30 MG/0.3 ML SQ SCH (08:39)
[2023-04-12] MEDS: AMINO ACIDS/PROTEIN HYDROLYS 30 ML LIQUID.PKT PO SCH ×2 (08:43→21:13)
[2023-04-12] MEDS: MUPIROCIN 2% OINT 22GM TUBE TOP SCH ×2 (08:43→21:00)
--- NOTE | 2023-04-12 08:53 | P.PN ---
Date of Service: 04/12/23 Chief Complaint: diabetic foot ulcer Subjective: s/p right 5th toe amputation yesterday 04/[address] George. Tolerated procedure well. Patient seen and examined at bedside. A&Ox4. Breathing comfortably on room air. Denies any new or worsening complaints. No acute events reported overnight. Patient's daughter at bedside. Physical Examination Temp Pulse Resp BP Pulse Ox 97.5 F 64 16 175/75 H 98 04/12/23 08:00 04/12/23 08:00 04/12/23 08:00 04/12/23 08:00 04/12/23 08:00 General: Alert, Oriented x4 HEENT: Atraumatic, Normocephalic Neck: Supple, JVD not distended Respiratory: Clear to auscultation bilaterally, Normal air movement Cardiovascular: No edema, Normal pulses Gastrointestinal: Normal bowel sounds, Soft and benign, Non-distended Musculoskeletal: No clubbing, No swelling Integumentary: Diabetic ulcer of left heel. Right foot dressing is clean dry and intact. Neurological: Normal speech, Normal tone, Normal affect Laboratory Data - Reviewed Imagings Data: - MRI Right Foot 04/06: "Marrow signal abnormalities suggesting osteomyelitis involving the fifth toe phalanges, sparing the base of the proximal phalanx" - CT Abdomen 04/06: "Bilateral nonobstructing renal calculi" Microbiology Data - Reviewed Medication List: Reviewed Assessment and Plan Problem List Hypertension DM2 RA OA Gastroparesis Hx gastric sleeve Hx MRSA Diabetic foot ulcer, left heel Osteomyelitis Osteomyelitis Right Foot MRSA Right Foot Wound - Patient has been on and off antibiotics since October for chronic right heel ulcer. Seen by wound care clinic and PCP as outpatient. - MRI Right Foot 04/06 reporting osteomyelitis of right 5th toe - Right foot wound culture 04/06: Methicillin-Resistant Staphylococcus aureus - Nasal swab 04/08 positive for MRSA colonization. On Bactroban nasal. - s/p right 5th toe amputation 04/[address] George. Tolerated procedure well. - On Vancomycin IV (started 04/07) Recommendations - S/p amputation of Right fifth toe on 04/11; Continue wound care per surgery team. - Continue Vancomycin for now. Discontinue upon discharge - MRSA colonization: Bactroban nasal x 5 days and Hibiclens bath monthly ID will follow up with patient as needed. Case discussed with Shahbaz Mccartney
[2023-04-12] MEDS: HYDROCODONE/APAP 7.5/325 MG TAB PO PRN (11:11)
[2023-04-12 15:45] LABS: Absolute Lymphocytes (CBC) 3.4 K/uL (0.7-4.9); Hematocrit 31.9 % (36.0-45.0); Lymphocytes % 43.3 % (15.3-44.8); MCV 91.1 fL (80-100); MPV 7.7 fL (7.6-11.3)
[2023-04-12 15:47] LABS: Potassium 3.8 mEq/L (3.5-5.1)
[2023-04-12] MEDS: VANCOMYCIN 1.25 GM in NA CHLORIDE 0.9% 250 ML IVPB SCH (17:34)
[2023-04-12] MEDS: NEBIVOLOL HCL 20 MG TABLET PO SCH (21:00)
[2023-04-12] MEDS: AMITRIPTYLINE 25 MG TAB PO SCH (21:09)
[2023-04-12] MEDS: FAMOTIDINE 20 MG TAB PO SCH (21:10)
[2023-04-12] MEDS: SERTRALINE HCL 50 MG TAB PO SCH (21:13)
[2023-04-12] MEDS: ROPINIROLE HCL 1 MG TAB PO SCH (21:13)
[2023-04-12] MEDS: VITAMIN D 5,000 UNIT CAP PO SCH (21:13)
[2023-04-13] MEDS: HYDROCODONE/APAP 7.5/325 MG TAB PO PRN (02:17)
[2023-04-13] MEDS: Omeprazole [Prilosec] 40 MG Capsule.Dr PO SCH (06:00)
[2023-04-13] MEDS: Milnacipran Hcl [Savella] 50 MG Tablet PO SCH (06:00)
[2023-04-13] MEDS: LEVOTHYROXINE SOD 0.1 MG TAB PO SCH (06:00)
[2023-04-13] MEDS: INSULIN -REGULAR HUMAN 50 UNIT/0.5 ML ML SQ SCH ×2 (07:30→11:30)
[2023-04-13] MEDS: Dapagliflozin Propanediol [Farxiga] 10 MG Tablet PO SCH (08:37)
[2023-04-13] MEDS: DOCUSATE NA 100 MG CAP PO SCH (08:39)
[2023-04-13] MEDS: CALCIUM CARBONATE 500 MG TAB PO SCH (08:40)
[2023-04-13] MEDS: ENOXAPARIN 30 MG/0.3 ML SQ SCH (08:40)
[2023-04-13] MEDS: NIFEDIPINE XL 60 MG TABLET PO SCH (08:40)
[2023-04-13] MEDS: MUPIROCIN 2% OINT 22GM TUBE TOP SCH (08:41)
[2023-04-13] MEDS: AMINO ACIDS/PROTEIN HYDROLYS 30 ML LIQUID.PKT PO SCH (08:43)
--- NOTE | 2023-04-13 09:08 | P.PN ---
Date of Service: 04/13/23 Chief Complaint: diabetic foot ulcer Subjective: No new changes. Improving. Denies any new or worsening complaints. Physical Examination Temp Pulse Resp BP Pulse Ox 97.1 F 62 16 167/60 H 97 04/13/23 08:00 04/13/23 08:00 04/13/23 08:00 04/13/23 08:00 04/13/23 08:00 General: Alert, Oriented x4 HEENT: Atraumatic, Normocephalic Neck: Supple, JVD not distended Respiratory: Clear to auscultation bilaterally, Normal air movement Cardiovascular: No edema, Normal pulses Gastrointestinal: Normal bowel sounds, Soft and benign, Non-distended Musculoskeletal: No clubbing, No swelling Integumentary: Diabetic ulcer of left heel. Right foot dressing is clean dry and intact. Neurological: Normal speech, Normal tone, Normal affect Laboratory Data - Reviewed Imagings Data: - MRI Right Foot 04/06: "Marrow signal abnormalities suggesting osteomyelitis involving the fifth toe phalanges, sparing the base of the proximal phalanx" - CT Abdomen 04/06: "Bilateral nonobstructing renal calculi" Microbiology Data - Reviewed Medication List: Reviewed Assessment and Plan Problem List Hypertension DM2 RA OA Gastroparesis Hx gastric sleeve Hx MRSA Diabetic foot ulcer, left heel Osteomyelitis Osteomyelitis Right Foot MRSA Right Foot Wound - Patient has been on and off antibiotics since October for chronic right heel ulcer. Seen by wound care clinic and PCP as outpatient. - MRI Right Foot 04/06 reporting osteomyelitis of right 5th toe - Right foot wound culture 04/06: Methicillin-Resistant Staphylococcus aureus - Nasal swab 04/08 positive for MRSA colonization. On Bactroban nasal. - s/p right 5th toe amputation 04/[address] George. Tolerated procedure well. - On Vancomycin IV (started 04/07) Recommendations - S/p amputation of Right fifth toe on 04/11; Continue local wound care per surgery team. - Continue Vancomycin for now. Discontinue upon discharge. - MRSA colonization: Bactroban nasal x 5 days and Hibiclens bath monthly - Follow up with PCP and wound care clinic as outpatient. ID will follow up with patient as needed. Case discussed with Shahbaz Mccartney
[2023-04-13 10:20] VITALS: O2SAT 97
[2023-04-13] MEDS: VANCOMYCIN 1.25 GM in NA CHLORIDE 0.9% 250 ML IVPB SCH (15:10)
[2023-04-13 16:13] VITALS: BP 143/63; TEMP 97.3
--- NOTE | 2023-04-13 16:15 | PN ---
Date of Progress Note: 04/13/2023 The patient continues to improve both symptomatically and clinically. The wound was changed by the eliu polk who felt it was healed well enough. She could be discharged on oral antibiotics. The last an tibiotic she used prior to admission was doxycycline and she was therefore placed on a week's course of this and could be discharged on usual medications, follow more dietary discretion. The patient to continue wound care and to be followed up in the Wound Clinic in [address] George and Internal Medicine in my office in 1 week. The possibility of switching to GLP-1 will be discussed further at that time. The patient discharged in good condition. HR/MODL Voice ID: [id number] Report ID: [id number]
== END 2023-04-13 17:13 | disposition home or self-care (01) | DRG 617 ==
LOC: 2ND 16:30 → OBSVTOIN 04-06 12:41
PROVIDERS: ADMIT Family Medicine; ATTEND Family Medicine
PROC: 0Y6X0Z3 Detachment at Right 5th Toe, Low, Open Approach (ICD-10-PCS; principal; 2023-04-11 13:30)
DX: E11.69 Type 2 diabetes mellitus with other specified complication (principal); E11.52 Type 2 diabetes mellitus with diabetic peripheral angiopathy with gangrene; L03.115 Cellulitis of right lower limb; L97.429 Non-pressure chronic ulcer of left heel and midfoot with unspecified severity; M86.8X8 Other osteomyelitis, other site; E11.43 Type 2 diabetes mellitus with diabetic autonomic (poly)neuropathy; K31.84 Gastroparesis; E11.621 Type 2 diabetes mellitus with foot ulcer; L97.519 Non-pressure chronic ulcer of other part of right foot with unspecified severity; I10 Essential (primary) hypertension; M19.90 Unspecified osteoarthritis, unspecified site; M79.7 Fibromyalgia; B95.62 Methicillin resistant Staphylococcus aureus infection as the cause of diseases classified elsewhere; Z88.6 Allergy status to analgesic agent; Z88.1 Allergy status to other antibiotic agents; Z88.8 Allergy status to other drugs, medicaments and biological substances; Z79.4 Long term (current) use of insulin; Z98.84 Bariatric surgery status; Z90.49 Acquired absence of other specified parts of digestive tract; Z86.14 Personal history of Methicillin resistant Staphylococcus aureus infection; Z86.718 Personal history of other venous thrombosis and embolism; Z79.890 Hormone replacement therapy; Z90.710 Acquired absence of both cervix and uterus
CPT/HCPCS: 36415; 74150; 80048; 80053; 80202; 81001; 82947; 83036; 83735; 85025; 87070; 87077; 87186; 87205; 88305; 88311; 93925; 93970; 93971; G0378; G0379; J1650; J1815; J2001; J2250; J2550; J2704; J3010; J7030; J7040; J7050

== ENCOUNTER 2024-01-20 12:54 | Emergency (ER) | payer OTHER ==
--- OUTSIDE RECORDS SUMMARY | 2024-01-20 12:57 | XMS REPORT | Continuity of Care Document ---
Author Name Unknown Address [address] [facility] [address] [place] [address] [facility] thconnect Address [address] [facility] [facility] [address] [place] [address] Care Team Providers Care Public Works Manager Name Role Phone Ramiro Coe Primary Care Physician [phone] CHRETIEN_F Attending Clinician Unavailable VEL CINTRON Attending Clinician Brandy Mosquera RN, Rosangela Anderson Attending Clinician Unavailab le Only, Ang Db Test Attending Clinician UnavailRoseanne Cardenas MD Attending Clinician ORSEANNE PAPPAS Attending Clinician Unavailable LADI_Justin Attending Clinician Unavailable CHRETIEN_F Admitting Clinician Unavailable SCHAUBROASH_Justin Admitting Clinician Unavailable Payers Payer Name Policy Type Policy Number Effective Date Expirati on Date Source [place] - [facility] [id number] 2013 00:00:00 ADAM (ADAM) [id number] 2011 00:00:00 [place] [employer] [id number] 2013 00:00:00 Problems Condition Name Condition Details Condition Category Status Onset Date Resolution Date Last Treatment Date Treating Clinician Comments Source Pneumonia Pneumonia Problem Active 01-04 00:00: 00 [facility] Dysuria Dysuria Problem Active 01-04 00:00: 00 [facility] Acute pharyngiti s Acute Pharyngiti s Problem Active 2021-10 00:00: 00 [facility] Cough Cough Problem Active 2021-10 00:00: 00 [facility] Chronic depression Chronic Depression Problem Active 12-11 00:00: 00 [facility] Neuropathy Neuropathy Problem Active 12-11 00:00: 00 [facility] Essential hypertensi on Essential Hypertensi on Problem Active 12-11 00:00: 00 [facility] Rheumatoid arthritis Rheumatoid Arthritis Problem Active 12-11 00:00: 00 [facility] Osteoarthr itis Osteoarthr itis Problem Active 12-11 00:00: 00 [facility] Fibromyalg ia Fibromyalg ia Problem Active 12-11 00:00: 00 [facility] Allergies, Adverse Reactions, Alerts Allergy Name Allergy Type Status Severity Reaction(s) Onset Date Inactive Date Treating Clinician Comments Source Erythrom ycin Base Allergy to substanc e Active Severe Vomiting [facility] Xarelto Allergy to substanc e Active Moderate severity Other [facility] Zofran Allergy to substanc e Active Moderate severity Other [facility] Ativan Allergy to substanc e Active Severe Other [facility] Bactrim Allergy to substanc e Active Moderate severity Hives [facility] NO KNOWN ALLERGIE S Drug Class Active [facility] Social History Social Habit Start Date Stop Date Quantity Comments Source Sex Assigned At 1950 00:00:00 1950 00:00:00 [facility] Smoking Status Start Date Stop Date Source Unknown if ever smoked [facility] Never Smoker [facility] Medications Ordered Medication Name Filled Medication Name Start Date Stop Date Current Medication? Ordering Clinician Indication Dosage Frequency Signature (SIG) Comments Components Source pantoprazol e 40 mg tablet,deonte yed release TAKE 1 TABLET BY MOUTH TWICE DAILY pantoprazol e 40 mg tablet,deonte yed release TAKE 1 TABLET BY MOUTH TWICE DAILY No pantoprazo le 40 mg tablet,del ayed release TAKE 1 TABLET BY MOUTH TWICE DAILY [facility] pioglitazon e 15 mg tablet TAKE 1 TABLET BY MOUTH EVERY DAY pioglitazon e 15 mg tablet TAKE 1 TABLET BY MOUTH EVERY DAY No pioglitazo ne 15 mg tablet TAKE 1 TABLET BY MOUTH EVERY DAY [facility] Plenvu 140 gram-9 gram-5.2 gram powder packs USE DIRECTED BY PHYSICIAN Brenda 140 gram-9 gram-5.2 gram powder packs USE DIRECTED BY PHYSICIAN No Plenvu 140 gram-9 gram-5.2 gram powder packs USE DIRECTED BY PHYSICIAN [facility] Procardia XL 60 mg tablet,exte nded release Take 1 tablet every day by oral route. Procardia XL 60 mg tablet,exte nded release Take 1 tablet every day by oral route. No 1 Q1D Procardia XL 60 mg tablet,ext ended release Take 1 tablet every day by oral route. [facility] Requip 1 mg tablet Take 3 tablets every day by oral route at bedtime. Requip 1 mg tablet Take 3 tablets every day by oral route at bedtime. No 3 Q1D Requip 1 mg tablet Take 3 tablets every day by oral route at bedtime. [facility] Savella 50 mg tablet Take 1 tablet twice a day by oral route. Savella 50 mg tablet Take 1 tablet twice a day by oral route. No 1 BID Savella 50 mg tablet Take 1 tablet twice a day by oral route. [facility] sodium fluoride 1.1 % dental paste USE 1 TO 2 TIMES DAILY FOR TEETH sodium fluoride 1.1 % dental paste USE 1 TO 2 TIMES DAILY FOR TEETH No sodium fluoride 1.1 % dental paste USE 1 TO 2 TIMES DAILY FOR TEETH [facility] Synthroid 300 mcg tablet TAKE 1 TABLET BY MOUTH EVERY MORNING Synthroid 300 mcg tablet TAKE 1 TABLET BY MOUTH EVERY MORNING No Synthroid 300 mcg tablet TAKE 1 TABLET BY MOUTH EVERY MORNING [facility] Zithromax Z-Jose 250 mg tablet TAKE 2 TABLETS (500 MG) BY ORAL ROUTE ONCE DAILY FOR 1 DAY THEN 1 TABLET (250 MG) BY ORAL ROUTE ONCE DAILY FOR 4 DAYS Zithromax Z-Jose 250 mg tablet TAKE 2 TABLETS (500 MG) BY ORAL ROUTE ONCE DAILY FOR 1 DAY THEN 1 TABLET (250 MG) BY ORAL ROUTE ONCE DAILY FOR 4 DAYS No Zithromax Z-Jose 250 mg tablet TAKE 2 TABLETS (500 MG) BY ORAL ROUTE ONCE DAILY FOR 1 DAY THEN 1 TABLET (250 MG) BY ORAL ROUTE ONCE DAILY FOR 4 DAYS [facility] Accu-Chek Milagro Plus test strips TEST EVERY DAY Accu-Chek Milagro Plus test strips TEST EVERY DAY No Accu-Chek Milagro Plus test strips TEST EVERY DAY [facility] albuterol sulfate 2.5 mg/3 mL (0.083 %) solution for nebulizatio n Inhale 3 mL twice a day by nebulizatio n route for 30 days. albuterol sulfate 2.5 mg/3 mL (0.083 %) solution for nebulizatio n Inhale 3 mL twice a day by nebulizatio n route for 30 days. No 3mL BID albuterol sulfate 2.5 mg/3 mL (0.083 %) solution for nebulizati on Inhale 3 mL twice a day by nebulizati on route for 30 days. [facility] albuterol sulfate HFA 90 mcg/actuati on aerosol inhaler INHALE 2 PUFFS BY MOUTH EVERY 6 HOURS DIRECTED albuterol sulfate HFA 90 mcg/actuati on aerosol inhaler INHALE 2 PUFFS BY MOUTH EVERY 6 HOURS DIRECTED No albuterol sulfate HFA 90 mcg/actuat ion aerosol inhaler INHALE 2 PUFFS BY MOUTH EVERY 6 HOURS DIRECTED [facility] amitriptyli ne 25 mg tablet Take 3 tablets every day by oral route at bedtime. amitriptyli ne 25 mg tablet Take 3 tablets every day by oral route at bedtime. No 3 Q1D amitriptyl ine 25 mg tablet Take 3 tablets every day by oral route at bedtime. [facility] benzonatate 200 mg capsule TAKE 1 CAPSULE BY MOUTH THREE TIMES DAILY NEEDED benzonatate 200 mg capsule TAKE 1 CAPSULE BY MOUTH THREE TIMES DAILY NEEDED No benzonatat e 200 mg capsule TAKE 1 CAPSULE BY MOUTH THREE TIMES DAILY NEEDED [facility] Bystolic 20 mg tablet Take 1 tablet every day by oral route. Bystolic 20 mg tablet Take 1 tablet every day by oral route. No 1 Q1D Bystolic 20 mg tablet Take 1 tablet every day by oral route. [facility] ciclopirox 8 % topical solution APPLY A SMALL AMOUNT TO ALL NAILS EVERY NIGHT AT BEDTIME ciclopirox 8 % topical solution APPLY A SMALL AMOUNT TO ALL NAILS EVERY NIGHT AT BEDTIME No ciclopirox 8 % topical solution APPLY A SMALL AMOUNT TO ALL NAILS EVERY NIGHT AT BEDTIME [facility] clobetasol 0.05 % topical cream APPLY A SMALL AMOUNT TO AFFECTED AREA TWICE DAILY ON THE LEFT ARM FOR 3 WEEKS MAX WITH A 1 WEEK BREAK clobetasol 0.05 % topical cream APPLY A SMALL AMOUNT TO AFFECTED AREA TWICE DAILY ON THE LEFT ARM FOR 3 WEEKS MAX WITH A 1 WEEK BREAK No clobetasol 0.05 % topical cream APPLY A SMALL AMOUNT TO AFFECTED AREA TWICE DAILY ON THE LEFT ARM FOR 3 WEEKS MAX WITH A 1 WEEK BREAK [facility] clonidine HCl 0.2 1 po qam and 2 po qpm clonidine HCl 0.2 1 po qam and 2 po qpm No clonidine HCl 0.2 1 po qam and 2 po qpm [facility] clotrimazol e-betametha sone 1 %-0.05 % lotion APPLY TOPICALLY TO THE AFFECTED AREA TWICE DAILY NEEDED clotrimazol e-betametha sone 1 %-0.05 % lotion APPLY TOPICALLY TO THE AFFECTED AREA TWICE DAILY NEEDED No clotrimazo le-betamet hasone 1 %-0.05 % lotion APPLY TOPICALLY TO THE AFFECTED AREA TWICE DAILY NEEDED [facility] cyclobenzap rine 10 mg tablet TAKE 1 TABLET BY MOUTH THREE TIMES DAILY NEEDED cyclobenzap rine 10 mg tablet TAKE 1 TABLET BY MOUTH THREE TIMES DAILY NEEDED No cyclobenza fady 10 mg tablet TAKE 1 TABLET BY MOUTH THREE TIMES DAILY NEEDED [facility] dicyclomine 20 mg tablet TAKE 1 TABLET BY MOUTH BEFORE MEALS AND AT BEDTIME dicyclomine 20 mg tablet TAKE 1 TABLET BY MOUTH BEFORE MEALS AND AT BEDTIME No dicyclomin e 20 mg tablet TAKE 1 TABLET BY MOUTH BEFORE MEALS AND AT BEDTIME [facility] famotidine 20 mg tablet Take 1 tablet twice a day by oral route. famotidine 20 mg tablet Take 1 tablet twice a day by oral route. No 1 BID famotidine 20 mg tablet Take 1 tablet twice a day by oral route. [facility] hydrocodone 7.5 mg-acetamin ophen 325 mg tablet TAKE 1 TABLET BY MOUTH THREE TIMES DAILY hydrocodone 7.5 mg-acetamin ophen 325 mg tablet TAKE 1 TABLET BY MOUTH THREE TIMES DAILY No hydrocodon e 7.5 mg-acetami nophen 325 mg tablet TAKE 1 TABLET BY MOUTH THREE TIMES DAILY [facility] ketoconazol e 2 % topical cream APPLY A SMALL AMOUNT TO AFFECTED AREA TWICE DAILY TO RASH ON FEET NEEDED FOR FLARES ketoconazol e 2 % topical cream APPLY A SMALL AMOUNT TO AFFECTED AREA TWICE DAILY TO RASH ON FEET NEEDED FOR FLARES No ketoconazo le 2 % topical cream APPLY A SMALL AMOUNT TO AFFECTED AREA TWICE DAILY TO RASH ON FEET NEEDED FOR FLARES [facility] lidocaine 5 % topical patch UNWRAP AND APPLY 1 PATCH TO SKIN EVERY DAY AND REMOVE AFTER 12 HOURS lidocaine 5 % topical patch UNWRAP AND APPLY 1 PATCH TO SKIN EVERY DAY AND REMOVE AFTER 12 HOURS No lidocaine 5 % topical patch UNWRAP AND APPLY 1 PATCH TO SKIN EVERY DAY AND REMOVE AFTER 12 HOURS [facility] pantoprazol e 40 mg tablet,deonte yed release TAKE 1 TABLET BY MOUTH TWICE DAILY pantoprazol e 40 mg tablet,deonte yed release TAKE 1 TABLET BY MOUTH TWICE DAILY No pantoprazo le 40 mg tablet,del ayed release TAKE 1 TABLET BY MOUTH TWICE DAILY [facility] pioglitazon e 15 mg tablet TAKE 1 TABLET BY MOUTH EVERY DAY pioglitazon e 15 mg tablet TAKE 1 TABLET BY MOUTH EVERY DAY No pioglitazo ne 15 mg tablet TAKE 1 TABLET BY MOUTH EVERY DAY [facility] Brenda 140 gram-9 gram-5.2 gram powder packs USE DIRECTED BY PHYSICIAN Brenda 140 gram-9 gram-5.2 gram powder packs USE DIRECTED BY PHYSICIAN No Plenvu 140 gram-9 gram-5.2 gram powder packs USE DIRECTED BY PHYSICIAN [facility] Procardia XL 60 mg tablet,exte nded release Take 1 tablet every day by oral route. Procardia XL 60 mg tablet,exte nded release Take 1 tablet every day by oral route. No 1 Q1D Procardia XL 60 mg tablet,ext ended release Take 1 tablet every day by oral route. [facility] Requip 1 mg tablet Take 3 tablets every day by oral route at bedtime. Requip 1 mg tablet Take 3 tablets every day by oral route at bedtime. No 3 Q1D Requip 1 mg tablet Take 3 tablets every day by oral route at bedtime. [facility] Savella 50 mg tablet Take 1 tablet twice a day by oral route. Savella 50 mg tablet Take 1 tablet twice a day by oral route. No 1 BID Savella 50 mg tablet Take 1 tablet twice a day by oral route. [facility] sodium fluoride 1.1 % dental paste USE 1 TO 2 TIMES DAILY FOR TEETH sodium fluoride 1.1 % dental paste USE 1 TO 2 TIMES DAILY FOR TEETH No sodium fluoride 1.1 % dental paste USE 1 TO 2 TIMES DAILY FOR TEETH [facility] Synthroid 300 mcg tablet TAKE 1 TABLET BY MOUTH EVERY MORNING Synthroid 300 mcg tablet TAKE 1 TABLET BY MOUTH EVERY MORNING No Synthroid 300 mcg tablet TAKE 1 TABLET BY MOUTH EVERY MORNING [facility] Zithromax Z-Jose 250 mg tablet TAKE 2 TABLETS (500 MG) BY ORAL ROUTE ONCE DAILY FOR 1 DAY THEN 1 TABLET (250 MG) BY ORAL ROUTE ONCE DAILY FOR 4 DAYS Zithromax Z-Jose 250 mg tablet TAKE 2 TABLETS (500 MG) BY ORAL ROUTE ONCE DAILY FOR 1 DAY THEN 1 TABLET (250 MG) BY ORAL ROUTE ONCE DAILY FOR 4 DAYS No Zithromax Z-Jose 250 mg tablet TAKE 2 TABLETS (500 MG) BY ORAL ROUTE ONCE DAILY FOR 1 DAY THEN 1 TABLET (250 MG) BY ORAL ROUTE ONCE DAILY FOR 4 DAYS [facility] amitriptyli ne 25 mg tablet Take 3 tablets every day by oral route at bedtime. amitriptyli ne 25 mg tablet Take 3 tablets every day by oral route at bedtime. No 3 Q1D amitriptyl ine 25 mg tablet Take 3 tablets every day by oral route at bedtime. [facility] benzonatate 200 mg capsule Take 1 capsule 3 times a day by oral route as needed for 10 days. benzonatate 200 mg capsule Take 1 capsule 3 times a day by oral route as needed for 10 days. No 1capsul e(s) TID benzonatat e 200 mg capsule Take 1 capsule 3 times a day by oral route as needed for 10 days. [facility] Bystolic 10 mg tablet Take 1 tablet every day by oral route at bedtime. Bystolic 10 mg tablet Take 1 tablet every day by oral route at bedtime. No 1 Q1D Bystolic 10 mg tablet Take 1 tablet every day by oral route at bedtime. [facility] Bystolic 5 mg tablet Take 1 tablet every day by oral route. Bystolic 5 mg tablet Take 1 tablet every day by oral route. No 1 Q1D Bystolic 5 mg tablet Take 1 tablet every day by oral route. [facility] cefdinir 300 mg capsule Take 1 capsule every 12 hours by oral route for 10 days. cefdinir 300 mg capsule Take 1 capsule every 12 hours by oral route for 10 days. No 1capsul e(s) Q12H cefdinir 300 mg capsule Take 1 capsule every 12 hours by oral route for 10 days. [facility] clonidine 0.1 mg/24 hr weekly transdermal patch APPLY 1 PATCH TOPICALLY TO THE SKIN EVERY 7 DAYS clonidine 0.1 mg/24 hr weekly transdermal patch APPLY 1 PATCH TOPICALLY TO THE SKIN EVERY 7 DAYS No clonidine 0.1 mg/24 hr weekly transderma l patch APPLY 1 PATCH TOPICALLY TO THE SKIN EVERY 7 DAYS [facility] clonidine HCl 0.2 1 po qam and 2 po qpm clonidine HCl 0.2 1 po qam and 2 po qpm No clonidine HCl 0.2 1 po qam and 2 po qpm [facility] cyclobenzap rine 10 mg tablet TAKE 1 TABLET BY MOUTH THREE TIMES DAILY cyclobenzap rine 10 mg tablet TAKE 1 TABLET BY MOUTH THREE TIMES DAILY No cyclobenza fady 10 mg tablet TAKE 1 TABLET BY MOUTH THREE TIMES DAILY [facility] famotidine 20 mg tablet Take 1 tablet twice a day by oral route. famotidine 20 mg tablet Take 1 tablet twice a day by oral route. No 1 BID famotidine 20 mg tablet Take 1 tablet twice a day by oral route. [facility] hydrocodone 7.5 mg-acetamin ophen 325 mg tablet TAKE 1 TABLET BY MOUTH THREE TIMES DAILY hydrocodone 7.5 mg-acetamin ophen 325 mg tablet TAKE 1 TABLET BY MOUTH THREE TIMES DAILY No hydrocodon e 7.5 mg-acetami nophen 325 mg tablet TAKE 1 TABLET BY MOUTH THREE TIMES DAILY [facility] lidocaine 5 % topical patch APPLY 1 PATCH EVERY DAY AND REMOVE AFTER 12 HOURS lidocaine 5 % topical patch APPLY 1 PATCH EVERY DAY AND REMOVE AFTER 12 HOURS No lidocaine 5 % topical patch APPLY 1 PATCH EVERY DAY AND REMOVE AFTER 12 HOURS [facility] pioglitazon e 15 mg tablet TAKE 1 TABLET BY MOUTH EVERY DAY pioglitazon e 15 mg tablet TAKE 1 TABLET BY MOUTH EVERY DAY No pioglitazo ne 15 mg tablet TAKE 1 TABLET BY MOUTH EVERY DAY [facility] Prilosec 10 mg capsule,del ayed release Take 1 capsule every day by oral route. Prilosec 10 mg capsule,del ayed release Take 1 capsule every day by oral route. No 1capsul e(s) Q1D Prilosec 10 mg capsule,de layed release Take 1 capsule every day by oral route. [facility] Procardia XL 60 mg tablet,exte nded release Take 1 tablet every day by oral route. Procardia XL 60 mg tablet,exte nded release Take 1 tablet every day by oral route. No 1 Q1D Procardia XL 60 mg tablet,ext ended release Take 1 tablet every day by oral route. [facility] Proventil HFA 90 mcg/actuati on aerosol inhaler Inhale 2 puffs every 6 hours by inhalation route as directed. Proventil HFA 90 mcg/actuati on aerosol inhaler Inhale 2 puffs every 6 hours by inhalation route as directed. No 2puff(s ) Q6H Proventil HFA 90 mcg/actuat ion aerosol inhaler Inhale 2 puffs every 6 hours by inhalation route as directed. [facility] Requip 1 mg tablet Take 3 tablets every day by oral route at bedtime. Requip 1 mg tablet Take 3 tablets every day by oral route at bedtime. No 3 Q1D Requip 1 mg tablet Take 3 tablets every day by oral route at bedtime. [facility] Savella 50 mg tablet Take 1 tablet twice a day by oral route. Savella 50 mg tablet Take 1 tablet twice a day by oral route. No 1 BID Savella 50 mg tablet Take 1 tablet twice a day by oral route. [facility] sertraline 100 mg tablet TAKE 1 TABLET BY MOUTH EVERY DAY sertraline 100 mg tablet TAKE 1 TABLET BY MOUTH EVERY DAY No sertraline 100 mg tablet TAKE 1 TABLET BY MOUTH EVERY DAY [facility] Synthroid 300 mcg tablet TAKE 1 TABLET BY MOUTH EVERY MORNING Synthroid 300 mcg tablet TAKE 1 TABLET BY MOUTH EVERY MORNING No Synthroid 300 mcg tablet TAKE 1 TABLET BY MOUTH EVERY MORNING [facility] Accu-Chek Milagro Plus test strips TEST EVERY DAY Accu-Chek Milagro Plus test strips TEST EVERY DAY No Accu-Chek Milagro Plus test strips TEST EVERY DAY [facility] albuterol sulfate 2.5 mg/3 mL (0.083 %) solution for nebulizatio n Inhale 3 mL twice a day by nebulizatio n route for 30 days. albuterol sulfate 2.5 mg/3 mL (0.083 %) solution for nebulizatio n Inhale 3 mL twice a day by nebulizatio n route for 30 days. No 3mL BID albuterol sulfate 2.5 mg/3 mL (0.083 %) solution for nebulizati on Inhale 3 mL twice a day by nebulizati on route for 30 days. [facility] albuterol sulfate HFA 90 mcg/actuati on aerosol inhaler INHALE 2 PUFFS BY MOUTH EVERY 6 HOURS DIRECTED albuterol sulfate HFA 90 mcg/actuati on aerosol inhaler INHALE 2 PUFFS BY MOUTH EVERY 6 HOURS DIRECTED No albuterol sulfate HFA 90 mcg/actuat ion aerosol inhaler INHALE 2 PUFFS BY MOUTH EVERY 6 HOURS DIRECTED [facility] amitriptyli ne 25 mg tablet Take 3 tablets every day by oral route at bedtime. amitriptyli ne 25 mg tablet Take 3 tablets every day by oral route at bedtime. No 3 Q1D amitriptyl ine 25 mg tablet Take 3 tablets every day by oral route at bedtime. [facility] benzonatate 200 mg capsule TAKE 1 CAPSULE BY MOUTH THREE TIMES DAILY NEEDED benzonatate 200 mg capsule TAKE 1 CAPSULE BY MOUTH THREE TIMES DAILY NEEDED No benzonatat e 200 mg capsule TAKE 1 CAPSULE BY MOUTH THREE TIMES DAILY NEEDED [facility] Bystolic 20 mg tablet Take 1 tablet every day by oral route. Bystolic 20 mg tablet Take 1 tablet every day by oral route. No 1 Q1D Bystolic 20 mg tablet Take 1 tablet every day by oral route. [facility] ciclopirox 8 % topical solution APPLY A SMALL AMOUNT TO ALL NAILS EVERY NIGHT AT BEDTIME ciclopirox 8 % topical solution APPLY A SMALL AMOUNT TO ALL NAILS EVERY NIGHT AT BEDTIME No ciclopirox 8 % topical solution APPLY A SMALL AMOUNT TO ALL NAILS EVERY NIGHT AT BEDTIME [facility] clobetasol 0.05 % topical cream APPLY A SMALL AMOUNT TO AFFECTED AREA TWICE DAILY ON THE LEFT ARM FOR 3 WEEKS MAX WITH A 1 WEEK BREAK clobetasol 0.05 % topical cream APPLY A SMALL AMOUNT TO AFFECTED AREA TWICE DAILY ON THE LEFT ARM FOR 3 WEEKS MAX WITH A 1 WEEK BREAK No clobetasol 0.05 % topical cream APPLY A SMALL AMOUNT TO AFFECTED AREA TWICE DAILY ON THE LEFT ARM FOR 3 WEEKS MAX WITH A 1 WEEK BREAK [facility] clonidine HCl 0.2 1 po qam and 2 po qpm clonidine HCl 0.2 1 po qam and 2 po qpm No clonidine HCl 0.2 1 po qam and 2 po qpm [facility] clotrimazol e-betametha sone 1 %-0.05 % lotion APPLY TOPICALLY TO THE AFFECTED AREA TWICE DAILY NEEDED clotrimazol e-betametha sone 1 %-0.05 % lotion APPLY TOPICALLY TO THE AFFECTED AREA TWICE DAILY NEEDED No clotrimazo le-betamet hasone 1 %-0.05 % lotion APPLY TOPICALLY TO THE AFFECTED AREA TWICE DAILY NEEDED [facility] cyclobenzap rine 10 mg tablet TAKE 1 TABLET BY MOUTH THREE TIMES DAILY NEEDED cyclobenzap rine 10 mg tablet TAKE 1 TABLET BY MOUTH THREE TIMES DAILY NEEDED No cyclobenza fady 10 mg tablet TAKE 1 TABLET BY MOUTH THREE TIMES DAILY NEEDED [facility] dicyclomine 20 mg tablet TAKE 1 TABLET BY MOUTH BEFORE MEALS AND AT BEDTIME dicyclomine 20 mg tablet TAKE 1 TABLET BY MOUTH BEFORE MEALS AND AT BEDTIME No dicyclomin e 20 mg tablet TAKE 1 TABLET BY MOUTH BEFORE MEALS AND AT BEDTIME [facility] famotidine 20 mg tablet Take 1 tablet twice a day by oral route. famotidine 20 mg tablet Take 1 tablet twice a day by oral route. No 1 BID famotidine 20 mg tablet Take 1 tablet twice a day by oral route. [facility] hydrocodone 7.5 mg-acetamin ophen 325 mg tablet TAKE 1 TABLET BY MOUTH THREE TIMES DAILY hydrocodone 7.5 mg-acetamin ophen 325 mg tablet TAKE 1 TABLET BY MOUTH THREE TIMES DAILY No hydrocodon e 7.5 mg-acetami nophen 325 mg tablet TAKE 1 TABLET BY MOUTH THREE TIMES DAILY [facility] ketoconazol e 2 % topical cream APPLY A SMALL AMOUNT TO AFFECTED AREA TWICE DAILY TO RASH ON FEET NEEDED FOR FLARES ketoconazol e 2 % topical cream APPLY A SMALL AMOUNT TO AFFECTED AREA TWICE DAILY TO RASH ON FEET NEEDED FOR FLARES No ketoconazo le 2 % topical cream APPLY A SMALL AMOUNT TO AFFECTED AREA TWICE DAILY TO RASH ON FEET NEEDED FOR FLARES [facility] lidocaine 5 % topical patch UNWRAP AND APPLY 1 PATCH TO SKIN EVERY DAY AND REMOVE AFTER 12 HOURS lidocaine 5 % topical patch UNWRAP AND APPLY 1 PATCH TO SKIN EVERY DAY AND REMOVE AFTER 12 HOURS No lidocaine 5 % topical patch UNWRAP AND APPLY 1 PATCH TO SKIN EVERY DAY AND REMOVE AFTER 12 HOURS [facility] Immunizations Ordered Immunization Name Filled Immunization Name Date Status Comments Source influenza, unspecified formulation influenza, unspecified formulation 2022-08-27 00:00:00 [facility] COVID-19 (SARS-COV-2) vaccine, unspecified COVID-19 (SARS-COV-2) vaccine, unspecified 2021-12-19 00:00:00 [facility] COVID-19 (SARS-COV-2) vaccine, unspecified COVID-19 (SARS-COV-2) vaccine, unspecified 2020-11-21 00:00:00 [facility] influenza, unspecified formulation influenza, unspecified formulation Unknown Completed [facility] COVID-19 (SARS-COV-2) vaccine, unspecified COVID-19 (SARS-COV-2) vaccine, unspecified Unknown Completed [facility] COVID-19 (SARS-COV-2) vaccine, unspecified COVID-19 (SARS-COV-2) vaccine, unspecified Unknown Completed [facility] influenza, unspecified formulation influenza, unspecified formulation Unknown Completed [facility] COVID-19 (SARS-COV-2) vaccine, unspecified COVID-19 (SARS-COV-2) vaccine, unspecified Unknown Completed [facility] COVID-19 (SARS-COV-2) vaccine, unspecified COVID-19 (SARS-COV-2) vaccine, unspecified Unknown Completed [facility] Vital Signs Vital Name Observation Time Observation Value Comments S ource BP Diastolic 2024-01-05 00:00:00 58 mm[Hg] [facility] BP Systolic 2024-01-05 00:00:00 115 mm[Hg] [facility] BP Diastolic 2022-09-13 00:00:00 45 mm[Hg] [facility] BP Systolic 2022-09-13 00:00:00 99 mm[Hg] [facility] Procedures Procedure Date / Time Performed Performing Clinician Source XR, chest, 2 view 2024-01-05 00:00:00 [facility] Amputation 2023-03-17 00:00:00 [facility] Total Replacement of Hip [facility] Thyroid Surgery [facility] Section [facility] Cholecystectomy [facility] Gastric Bypass [facility] Plan of Care Planned Activity Planned Date Details Comments Source Diagnostic Test Pending 2024-01-05 00:00:00 urinalysis, dipstick [code = urinalysis, dipstick] [facility] Instructions [facility] Encounters Start Date/Time End Date/Time Encounter Type Admission Type Attending Clinicians Care Facility Care Department Encounter ID Source 2024-01-05 00:00:00 2024-01-05 00:00:00 Outpatient CHRETIEN_F [facility] [id number] [facility] 2024-01-05 00:00:00 2024-01-05 00:00:00 NICOLLE Freeman C: [address] [place] [address], [address] [place] [id number] , Ph. [facility] [id number] [facility] 2023-08-19 10:30:00 2023-08-19 10:30:00 Outpatient VEL CINTRON [facility] [id number] [facility] 2022-09-28 00:00:00 2022-09-28 00:00:00 Outpatient CHRETIEN_F [facility] [id number] [facility] 2022-09-13 00:00:00 2022-09-13 00:00:00 Outpatient CHRETIEN_F [facility] [id number] [facility] 2022-09-13 00:00:00 2022-09-13 00:00:00 NICOLLE Freeman C: [address] [facility], [address] [place] [id number] , Ph. [facility] [id number] [facility] 2021-10-13 00:00:00 2021-10-13 00:00:00 Letter (Out) Rosangela Mosquera [facility] [id number] [facility] 2021-10-12 13:00:00 2021-10-12 13:15:00 Laboratory Only Only, Ang Db Roseanne Weldon [facility] [id number] [facility] 2021-10-12 13:00:00 2021-10-12 13:00:00 Outpatient ROSEANNE LINCOLN [facility] [id number] [facility] 2019-03-15 00:00:00 2019-03-15 00:00:00 Outpatient SCHAUBROECK _L [facility] [id number] Pending [facility]
[2024-01-20] MEDS ORDERED: ONDANSETRON 4 MG/2 ML VIAL ONE (13:13)
[2024-01-20] MEDS ORDERED: MORPHINE 4 MG/ML SYR ONE ×2 (13:13→16:40)
[2024-01-20 13:42] LABS: Absolute Basophils 0.1 K/uL (0-0.5); Absolute Eosinophils 0.1 K/uL (0-0.5); Absolute Lymphocytes (CBC) 1.1 K/uL (0.7-4.9); Absolute Monocytes 0.4 K/uL (0.1-1.3); Absolute Neutrophil 6.8 K/uL (1.8-8.0); Basophils % 0.9 % (0-1.3); Eosinophils % 0.6 % (0-4.4); Hematocrit 36.4 % (36.0-45.0); Hemoglobin 11.6 g/dL (12.0-15.0); Lymphocytes % 13.4 % (15.3-44.8); MCH 28.8 pg (27.0-35.0); MCHC 31.8 g/dL (32.0-36.0); MCV 90.5 fL (80-100); MPV 8.4 fL (7.6-11.3); Monocytes % 5.2 % (3.3-12.3); Neutrophils % 79.9 % (41.7-73.7); Platelets 367 thou/uL (152-406); RBC Red Blood Cell Count 4.03 M/uL (3.86-4.86); Red Cell Distribution Width 14.1 % (12.1-15.2)
[2024-01-20 14:12] LABS: Albumin 2.2 g/dL (3.4-5.0); Albumin/Globulin Ratio 0.5 (1.1-1.8); Globulin 4.2 g/dL (2.3-3.5); Protein, Total 6.4 g/dL (6.4-8.2)
--- NOTE | 2024-01-20 15:01 | RAD REPORT ---
EXAM DESCRIPTION: CTAbdomen Pelvis W Contrast - 01/20/2024 2:34 pm CLINICAL HISTORY: ABD PAIN COMPARISON: Abdomen Wo Contrast dated 04/05/2023 TECHNIQUE: CT of the abdomen and pelvis was performed. All CT scans are performed using dose optimization technique as appropriate and may include automated exposure control or mA/KV adjustment according to patient size. FINDINGS: Lower chest: Small right pleural effusion. Liver: Hepatic steatosis. Biliary: Cholecystectomy extrahepatic biliary duct dilatation noted measuring approximately 10 millim eters. Stomach: Lesly-en-Y gastric bypass. Duodenum: No significant focal abnormality. Pancreas: Fullness is present at the pancreatic neck which is new. This measures approximately 4.3 by 3.7 cm There is soft tissue in the region of the proper hepatic artery, left splenic artery and abut ting the portal vein. The body and tail of the pancreas is atrophic. The splenic vein appears occlude d. Spleen: No significant abnormality. Adrenal: No suspicious lesions. Kidney/ureter: No hydronephrosis. 13 mm stone at the left renal pelvis. No hydronephrosis. Smaller ri ght renal calculi. Too small to characterize and/or benign appearing renal lesions are noted. Retroperitoneum: No retroperitoneal adenopathy. Vascular: Atherosclerosis. Bowel: Moderate rectal stool.. Peritoneum: No ascites or free air. Bladder: Grossly unremarkable. Reproductive: No adnexal masses. Bones: No acute fracture. Right hip arthroplasty. Multilevel degenerative changes are present in the spine. 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 Recommend further evaluation with pancreatic protocol MRI and/or referral to hepatobiliary surgeon. Nonobstructive nephrolithiasis.
--- NOTE | 2024-01-20 15:39 | ER ---
Nurse's Notes [facility] Name: Fiona Pickens Age: 73 yrs Sex: Female : 1950 Arrival Date: 01/20/2024 Time: 12:54 Bed 14 Private MD: Ramiro Coe Diagnosis: Obstruction of bile duct;Pancreatic mass Presentation: 01/19 13:05 Chief complaint: Patient states: Sent in by Dr. George for worsening abdominal pain, ll1 started last year. Coronavirus screen: Client denies travel out of the [place] in the last 14 days. At this time, the client does not indicate any symptoms associated with coronavirus-19. Ebola Screen: Patient denies travel to an Ebola-affected area in the 21 days before illness onset. Initial Sepsis Screen: Does the patient meet any 2 criteria? No. Patient's initial sepsis screen is negative. Does the patient have a suspected source of infection? No. Patient's initial sepsis screen is negative. Risk Assessment: Do you want to hurt yourself or someone else? Patient reports no desire to harm self or others. Onset of symptoms was September 16, 2023. 13:05 Method Of Arrival: Wheelchair ll1 13:05 Acuity: KELSEA 3 ll1 Triage Assessment: 13:18 General: Appears uncomfortable, Behavior is calm, cooperative, appropriate for age. ll1 Pain: Complains of pain in abdomen Quality of pain is described as aching. GI: Reports lower abdominal pain, upper abdominal pain. Historical: - Allergies: 13:04 diphenhydramine HCl; ll1 13:04 Ondansetron HCl; ll1 13:04 erythromycin base; ll1 13:04 Sulfa (Sulfonamide Antibiotics); ll1 13:04 Lorazepam; ll1 13:04 rivaroxaban; ll1 13:04 Rifampin; ll1 13:04 maltose; ll1 13:04 Aspirin; ll1 13:04 abatacept; ll1 13:04 leflunomide; ll1 13:04 tofacitinib citrate; ll1 - PMHx: 13:04 Hypertensive disorder; thyroid meds; Diabetes mellitus; ll1 - Immunization history:: Adult Immunizations up to date. - Infectious Disease History:: Denies. - Social history:: Smoking status: Patient denies any tobacco usage or history of. - Family history:: not pertinent. - Hospitalizations: : No recent hospitalization is reported. Screenin:38 [facility] ED Fall Risk Assessment (Adult) History of falling in the last 3 months, nj1 including since admission No falls in past 3 months (0 pts) Confusion or Disorientation No (0 pts) Intoxicated or Sedated No (0 pts) Impaired Gait Yes (1 pt) Mobility Assist Device Used Yes (1 pt) Altered Elimination No (0 pt) Score/Fall Risk Level 0 - 2 = Low Risk Oriented to surroundings, Maintained a safe environment, Hourly rounding (assess needs \T\ fall precautionary measures) done. Abuse screen: Denies threats or abuse. Denies injuries from another. Nutritional screening: No deficits noted. Tuberculosis screening: No symptoms or risk factors identified. Assessment: 13:30 General: Appears in no apparent distress. comfortable, Behavior is calm, cooperative, nj1 appropriate for age. 13:30 Pain: Complains of pain in abdomen Pain currently is 7 out of 10 on a pain scale. nj1 Neuro: Level of Consciousness is awake, alert, obeys commands, Oriented to person, place, time, situation. Cardiovascular: Patient's skin is warm and dry. Respiratory: Airway is patent Respiratory effort is even, unlabored. GI: Reports lower abdominal pain, upper abdominal pain, Patient currently denies nausea. 14:42 Reassessment: Patient appears in no apparent distress at this time. Patient and/or nj1 family updated on plan of care and expected duration. Pain level reassessed. Patient is alert, oriented x 3, equal unlabored respirations, skin warm/dry/pink. 16:57 Reassessment: Attempt to call report to RN for room 1534. RN unavailable for 10 tl4 minutes. Will call back. 17:15 Reassessment: Attempt to call report, no answer. tl4 18:29 Reassessment: Patient and/or family updated on plan of care and expected duration. Pain tl4 level reassessed. Patient is alert, oriented x 3, equal unlabored respirations, skin warm/dry/pink. Patient states feeling better. 18:32 GI: Bowel sounds present X 4 quads. Abd is soft Abdomen is tender to palpation in right tl4 upper quadrant and left upper quadrant. Vital Signs: 13:05 Resp 20; ll1 13:16 BP 108 / 51; Pulse 81; Resp 20; Temp 97.3; Pulse Ox 100% on R/A; Weight 97.07 kg; ll1 Height 5 ft. 0 in. ; Pain 8/10; 14:42 BP 149 / 66; Pulse 80; Resp 16; Pulse Ox 100% ; Pain 3/10; nj1 15:30 BP 146 / 58; Pulse 79; Resp 16; Pulse Ox 100% on R/A; tl4 16:30 BP 158 / 85; Pulse 81; Resp 18; Pulse Ox 97% on R/A; tl4 17:30 BP 145 / 60; Pulse 77; Resp 16; Pulse Ox 96% on R/A; tl4 18:30 BP 142 / 79; Pulse 77; Resp 16; Temp 98.3(O); Pulse Ox 97% on R/A; Pain 2/10; tl4 13:16 Body Mass Index 41.79 (97.07 kg, 152.4 cm) ll1 13:16 Pain Scale: Adult ll1 14:42 Pain Scale: Adult nj1 18:30 Pain Scale: Adult tl4 ED Course: 12:57 Patient arrived in ED. rg4 12:57 Ramiro Coe MD is Private Physician. rg4 13:02 Alfie Vogt MD is Attending Physician. rn 13:04 Arm band placed on Patient placed in an exam room, on a stretcher. ll1 13:06 Triage completed. ll1 13:20 Deena Oropeza, ASA is Primary Nurse. nj1 13:30 Inserted saline lock: 22 gauge in right antecubital area, using aseptic technique. nj1 Blood collected. 13:38 Patient has correct armband on for positive identification. Bed in low position. Call nj1 light in reach. Provided Education on: call light, fall precautions. 14:36 CT Abd/Pelvis - IV Contrast Only In Process Unspecified. EDMS 15:14 Report given to Roe BRAY. nj1 15:47 Initiated transfer with [facility]... spoke with Rick. ross 18:32 No provider procedures requiring assistance completed. Patient transferred, IV remains tl4 in place. Administered Medications: 13:30 Drug: morphine IVP or IV 4 mg IVP once over 4 mins Route: IVP; Infused Over: 4 mins; nj1 Site: right antecubital; 16:50 Follow up: Response: No adverse reaction; Pain is decreased tl4 13:35 Not Given (Patient Refused): ondansetron 4 mg IVP once; over 2 minutes nj1 16:51 Drug: morphine IVP or IV 4 mg IVP once over 4 mins Route: IVP; Infused Over: 4 mins; tl4 Site: right antecubital; 18:29 Follow up: Response: No adverse reaction; Pain is decreased tl4 Medication: 18:32 VIS not applicable for this client. tl4 Outcome: 15:39 ER care complete, transfer ordered by . rn 18:32 Transferred by ground EMS to [facility], Transfer form completed. tl4 18:32 Condition: stable 18:32 Instructed on the need for transfer, 18:33 Patient left the ED. tl4 Signatures: Dispatcher [employer] EDMS Alfie Vogt MD MD rn Garcia, Rubi rg4 Leydi Hale RN RN ll1 Deena Oropeza RN RN nj1 Saida Holly [facility] Roe Bear RN RN tl4 Corrections: (The following items were deleted from the chart) 14:54 14:42 Pulse 80bpm; Resp 16bpm; Pulse Ox 100%; Pain 3, Adult; nj1 nj1
--- NOTE | 2024-01-20 15:39 | EDPHYS ---
Physician Documentation [facility] Name: Fiona Pickens Age: 73 yrs Sex: Female : 1950 Arrival Date: 01/20/2024 Time: 12:54 Bed 14 Private MD: Ramiro Coe ED Physician Alfie Vogt HPI: 01/19 14:47 This 73 yrs old Female presents to ER via Wheelchair with complaints of Abdominal Pain. rn 14:47 The patient presents with abdominal pain. Onset: The symptoms/episode began/occurred 3 rn day(s) ago. The symptoms do not radiate. Associated signs and symptoms: Pertinent positives: nausea and vomiting, nausea, Pertinent negatives: blood in stools, chest pain, fever, shortness of breath. The symptoms are described as achy, intermittent. Modifying factors: The symptoms are alleviated by nothing, the symptoms are aggravated by food. Severity of pain: At its worst the pain was moderate in the emergency department the pain is unchanged. The patient has experienced similar episodes in the past. Patient reports has been having abdominal pain for about a year. Has had multiple imaging studies including CT as well as EGD by Dr. Hays. No clear etiology of her pain. States for the last 2 or 3 days has been worsening abdominal pain, usually is on her left side but now on the right side. Has had gallbladder removed as well as adhesions. Patient reports constipation with nausea and vomiting. No chest pain. No blood in stool. Historical: - Allergies: 13:04 diphenhydramine HCl; ll1 13:04 Ondansetron HCl; ll1 13:04 erythromycin base; ll1 13:04 Sulfa (Sulfonamide Antibiotics); ll1 13:04 Lorazepam; ll1 13:04 rivaroxaban; ll1 13:04 Rifampin; ll1 13:04 maltose; ll1 13:04 Aspirin; ll1 13:04 abatacept; ll1 13:04 leflunomide; ll1 13:04 tofacitinib citrate; ll1 - PMHx: 13:04 Hypertensive disorder; thyroid meds; Diabetes mellitus; ll1 - Immunization history:: Adult Immunizations up to date. - Infectious Disease History:: Denies. - Social history:: Smoking status: Patient denies any tobacco usage or history of. - Family history:: not pertinent. - Hospitalizations: : No recent hospitalization is reported. ROS: 14:47 Constitutional: Negative for fever, chills, and weight loss, Cardiovascular: Negative rn for chest pain, palpitations, and edema, Respiratory: Negative for shortness of breath, cough, wheezing, and pleuritic chest pain, Abdomen/GI: Positive for bilateral upper abdominal pain with nausea and vomiting MS/Extremity: Negative for injury and deformity, Skin: Negative for injury, rash, and discoloration, Neuro: Positive for generalized weakness and malaise Exam: 14:47 Constitutional: This is a well developed, well nourished patient who is awake, alert, rn and in no acute distress. Cardiovascular: Regular rate and rhythm. No pulse deficits. Respiratory: No increased work of breathing, no retractions or nasal flaring. Abdomen/GI: Soft, mild tenderness bilateral upper quadrants, no rebound or masses MS/ Extremity: Pulses equal, no cyanosis. Neuro: Awake and alert, GCS 15 Vital Signs: 13:05 Resp 20; ll1 13:16 BP 108 / 51; Pulse 81; Resp 20; Temp 97.3; Pulse Ox 100% on R/A; Weight 97.07 kg; ll1 Height 5 ft. 0 in. ; Pain 8/10; 14:42 BP 149 / 66; Pulse 80; Resp 16; Pulse Ox 100% ; Pain 3/10; nj1 15:30 BP 146 / 58; Pulse 79; Resp 16; Pulse Ox 100% on R/A; tl4 16:30 BP 158 / 85; Pulse 81; Resp 18; Pulse Ox 97% on R/A; tl4 17:30 BP 145 / 60; Pulse 77; Resp 16; Pulse Ox 96% on R/A; tl4 18:30 BP 142 / 79; Pulse 77; Resp 16; Temp 98.3(O); Pulse Ox 97% on R/A; Pain 2/10; tl4 13:16 Body Mass Index 41.79 (97.07 kg, 152.4 cm) ll1 13:16 Pain Scale: Adult ll1 14:42 Pain Scale: Adult nj1 18:30 Pain Scale: Adult tl4 MDM: 13:02 Patient medically screened. rn 15:37 Differential diagnosis: bowel obstruction, Malignancy, biliary obstruction, pancreatic rn malignancy, mass, chronic abdominal pain. Data reviewed: vital signs, nurses notes, lab test result(s), radiologic studies, CT scan, and as a result, I will admit patient. Consideration of Admission/Observation Patient was admitted/placed on observation. Escalation of care including admission/observation considered. Counseling: I had a detailed discussion with the patient and/or guardian regarding the historical points, exam findings, and any diagnostic results supporting the discharge/admit diagnosis, lab results, radiology results, the need for further work-up and treatment in the hospital. Response to treatment: There is no appreciated change of the patient's symptoms at this time, and as a result, I will admit patient. ED course: Patient with worsening abdominal pain, imaging shows pancreatic head mass with biliary obstruction. Will transfer for higher level of care as we do not have GI or ability to further evaluate.. 01/19 13:02 Order name: CBC with Diff; Complete Time: 14:27 rn 01/19 13:02 Order name: CMP; Complete Time: 14:27 rn 01/19 13:02 Order name: Lipase; Complete Time: 14:27 rn 01/19 13:02 Order name: CT Abd/Pelvis - IV Contrast Only; Complete Time: 15:29 rn 01/19 13:02 Order name: IV Saline Lock; Complete Time: 13:35 rn 01/19 13:02 Order name: Labs collected and sent; Complete Time: 13:35 rn Administered Medications: 13:30 Drug: morphine IVP or IV 4 mg IVP once over 4 mins Route: IVP; Infused Over: 4 mins; nj1 Site: right antecubital; 16:50 Follow up: Response: No adverse reaction; Pain is decreased tl4 13:35 Not Given (Patient Refused): ondansetron 4 mg IVP once; over 2 minutes nj1 16:51 Drug: morphine IVP or IV 4 mg IVP once over 4 mins Route: IVP; Infused Over: 4 mins; tl4 Site: right antecubital; 18:29 Follow up: Response: No adverse reaction; Pain is decreased tl4 Disposition Summary: 01/20/24 15:39 Transfer Ordered Notes: Transfer Location: [facility] rn Reason: Higher level of care rn Condition: Stable rn Problem: new rn Symptoms: are unchanged rn Accepting Physician: (01/20/24 18:33) tl4 Diagnosis - Obstruction of bile duct rn - Pancreatic mass rn Forms: - Medication Reconciliation Form rn - SBAR form rn Signatures: Dispatcher [employer] EDMS Alfie Vogt MD MD rn Lewis, Lynsay RN RN ll1 Deena Oropeza RN RN nj1 Roe Bear RN RN tl4 Corrections: (The following items were deleted from the chart) 13:03 13:03 CBC+H.LAB.BRZ ordered. EDMS EDMS 13:03 13:03 COMPREHENSIVE METABOLIC PANEL+C.LAB.BRZ ordered. EDMS EDMS 13:03 13:03 LIPASE+C.LAB.BRZ ordered. EDMS EDMS 13:03 13:03 Urinalysis+U.LAB.BRZ ordered. EDMS EDMS 18:33 15:39 rn tl4
[2024-01-20 20:31] VITALS: BP 142/79; TEMP 98.3; O2SAT 97
== END 2024-01-20 18:33 | disposition short-term general hospital (02) ==
LOC: ER 12:54
DX: K83.1 Obstruction of bile duct (principal); K86.89 Other specified diseases of pancreas; Z88.1 Allergy status to other antibiotic agents; Z88.2 Allergy status to sulfonamides; Z88.3 Allergy status to other anti-infective agents; Z88.5 Allergy status to narcotic agent; Z88.6 Allergy status to analgesic agent; Z88.8 Allergy status to other drugs, medicaments and biological substances
CPT/HCPCS: 85025; 36415; 83690; 80053; 74177; 96374; 99285; Q9967; J2405

== ENCOUNTER 2024-03-19 12:37 | Inpatient (IN) | payer OTHER ==
[2024-03-19 13:40] LABS: Absolute Basophils 0.1 K/uL (0-0.5); Absolute Lymphocytes (CBC) 0.6 K/uL (0.7-4.9); Absolute Monocytes 0.1 K/uL (0.1-1.3); Absolute Neutrophil 9.4 K/uL (1.8-8.0); Basophils % 0.8 % (0-1.3); Eosinophils % 0.1 % (0-4.4); Hematocrit 31.4 % (36.0-45.0); Hemoglobin 10.1 g/dL (12.0-15.0); Lymphocytes % 5.9 % (15.3-44.8); MCH 30.6 pg (27.0-35.0); MCHC 32.3 g/dL (32.0-36.0); MCV 94.7 fL (80-100); MPV 10.4 fL (7.6-11.3); Monocytes % 1.1 % (3.3-12.3); Neutrophils % 92.1 % (41.7-73.7); Platelets 231 thou/uL (152-406); RBC Red Blood Cell Count 3.31 M/uL (3.86-4.86); Red Cell Distribution Width 14.7 % (12.1-15.2)
[2024-03-19 14:00] LABS: Albumin 1.6 g/dL (3.4-5.0); Albumin/Globulin Ratio 0.4 (1.1-1.8); Anion Gap 10.5 mEq/L (5.0-15.0); Bilirubin Direct 0.6 mg/dL (0-0.2); Bilirubin Indirect, Calculated 0.5 mg/dL (0.2-0.8); Bilirubin Total 1.1 mg/dL (0.2-1.0); Globulin 4.1 g/dL (2.3-3.5); Magnesium 1.9 mg/dL (1.6-2.4); Potassium 3.5 mEq/L (3.5-5.1); Protein, Total 5.7 g/dL (6.4-8.2); Troponin High Sensitivity 9.6 pg/mL (<58.9)
[2024-03-19 14:17] LABS: PT Prothrombin Time 19.1 SECONDS (9.5-12.5); Protime INR 1.77
[2024-03-19 14:31] LABS: Blood Morphology Comment NOT SEEN (NOT SEEN); Platelet Estimate ADEQ; White Blood Cell Scan OK (OK)
--- NOTE | 2024-03-19 15:05 | RAD REPORT ---
EXAM DESCRIPTION: CT - Chest For Pe Angio - 03/19/2024 1:51 pm CLINICAL HISTORY: SOB COMPARISON: Chest Abd Pelvis Wo Con dated 03/06/2024; CTANGIO CHEST dated 12/03/2012; Chest Single Vie w dated 03/19/2024; Chest Single View dated 03/06/2024 TECHNIQUE: Thin axial CT images of the chest were obtained following administration of iodinated con trast intravenously. Multiplanar reconstructions, and maximum intensity projection reconstructions we re generated and reviewed. Exam utilizes a protocol for optimal evaluation of pulmonary arterial tree . All CT scans are performed using dose optimization technique as appropriate and may include automated exposure control or mA/KV adjustment according to patient size. FINDINGS: Pulmonary arteries are normal. No emboli or other suspicious finding. No acute or signific ant aorta findings. No mass or infiltrate in the lung parenchyma. Moderate layering right pleural effusion, with underlyi ng segmental right lower lobe atelectasis. No pneumothorax. No abnormal mediastinal or hilar masses or lymphadenopathy seen. No chest wall mass or abnormal axill iary lymphadenopathy. Mild perihepatic ascites. IMPRESSION: No evidence of acute central pulmonary emboli. Moderate layering right pleural effusion. Mild perihepatic ascites.
[2024-03-19] MEDS ORDERED: CEFEPIME 2 GM VIAL ONE (15:16)
[2024-03-19] MEDS ORDERED: FUROSEMIDE 40 MG/4 ML VIAL ONE (15:16)
[2024-03-19] MEDS ORDERED: NA CHLORIDE 0.9% 100 ML ONE (15:16)
[2024-03-19] MEDS ORDERED: HYDROCODONE/APAP 5/325 MG TAB ONE (15:39)
--- NOTE | 2024-03-19 15:48 | ER ---
Nurse's Notes [facility] Name: Fiona Pickens Age: 74 yrs Sex: Female : 1950 Arrival Date: 03/19/2024 Time: 12:37 Bed 20 Private MD: Diagnosis: Cellulitis of left lower limb;Pleural effusion, not elsewhere classified;Acute on chronic diastolic (congestive) heart failure Presentation: 03/19 12:47 Chief complaint: EMS states: Toned out for generalized weakness and near syncope. Has me1 pancreatic cancer on chemo, last tx on Tuesday. Coronavirus screen: Vaccine status: Patient reports receiving the 2nd dose of the covid vaccine. Ebola Screen: No symptoms or risks identified at this time. Initial Sepsis Screen: Does the patient meet any 2 criteria? No. Patient's initial sepsis screen is negative. Does the patient have a suspected source of infection? No. Patient's initial sepsis screen is negative. Risk Assessment: Do you want to hurt yourself or someone else? Patient reports no desire to harm self or others. Onset of symptoms was March 19, 2024. 12:47 Method Of Arrival: EMS: [place] [id number] 12:47 Acuity: KELSEA 3 me1 Triage Assessment: 12:56 General: Appears comfortable, well groomed, well developed, well nourished, Behavior is me1 calm, cooperative, appropriate for age, Reports c/o generalized weakness and fatigue. 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 Pain: Denies pain. EENT: No signs and/or symptoms were reported regarding the EENT system. Neuro: Level of Consciousness is awake, alert, obeys commands, Oriented to person, place, time, situation, Appropriate for age Reports dizziness, near syncope. Cardiovascular: Patient's skin is warm and dry. Respiratory: Airway is patent Respiratory effort is even, unlabored, Respiratory pattern is regular, symmetrical. GI: Reports nausea. : No signs and/or symptoms were reported regarding the genitourinary system. Derm: Skin is intact, is healthy with good turgor, Skin is pink, warm \T\ dry. Musculoskeletal: Reports weakness in generalized. Historical: - Allergies: 12:56 abatacept; bp 12:56 Aspirin; bp 12:56 diphenhydramine HCl; bp 12:56 erythromycin base; bp 12:56 LEFLUNOMIDE; bp 12:56 Lorazepam; bp 12:56 maltose; bp 12:56 Ondansetron HCl; bp 12:56 Rifampin; bp 12:56 Sulfa (Sulfonamide Antibiotics); bp 12:56 rivaroxaban; bp 12:56 tofacitinib citrate; bp - PMHx: 12:56 diabetes mellitus; PANCREATATIC CANCER (thyroid meds); Hypertensive disorder; thyroid bp meds; - PSHx: 12:56 Adenoid excision; section; Cholecystectomy; Gastric Bypass; PANULECTOTOMY; bp RIGHT 5TH TOE AMPUTATION; Right hip replacement; Thyroidectomy; Tonsillectomy; Total abdominal hysterectomy; - Immunization history:: Adult Immunizations up to date. - Infectious Disease History:: Denies. - Social history:: Smoking status: Patient denies any tobacco usage or history of. Screenin:59 [facility] ED Fall Risk Assessment (Adult) History of falling in the last 3 months, me1 including since admission No falls in past 3 months (0 pts) Confusion or Disorientation No (0 pts) Intoxicated or Sedated No (0 pts) Impaired Gait No (0 pts) Mobility Assist Device Used No (0 pt) Altered Elimination No (0 pt) Score/Fall Risk Level 0 - 2 = Low Risk Maintained a safe environment, Provided non-skid footwear, Hourly rounding (assess needs \T\ fall precautionary measures) done. Abuse screen: Denies threats or abuse. Nutritional screening: No deficits noted. Tuberculosis screening: No symptoms or risk factors identified. Assessment: 12:59 General: See triage assessment. . me1 Vital Signs: 12:47 BP 106 / 75; Pulse 123; Resp 19; Temp 98; Pulse Ox 100% on R/A; Weight 91.63 kg; Height me1 5 ft. 0 in. ; 13:00 BP 126 / 76; Pulse 127; Resp 18; Pulse Ox 98% on R/A; me1 14:00 BP 131 / 74; Pulse 131; Resp 17; Pulse Ox 100% on R/A; me1 15:00 BP 122 / 57; Pulse 125; Resp 24; Pulse Ox 99% on R/A; me1 16:00 BP 116 / 70; Pulse 123; Resp 23; Pulse Ox 99% on R/A; me1 17:00 BP 113 / 65; Pulse 96; Resp 19; Pulse Ox 96% on R/A; me1 18:00 BP 111 / 60; Pulse 122; Resp 24; Pulse Ox 97% on R/A; me1 12:47 Body Mass Index 39.45 (91.63 kg, 152.4 cm) ms1 ED Course: 12:41 Patient arrived in ED. sb4 12:43 Chelo Capone MD is Attending Physician. gb1 12:44 Antonino Cullen, RN is Primary Nurse. bp 12:56 Triage completed. bp 12:56 Arm band placed on. me1 12:59 Patient has correct armband on for positive identification. Bed in low position. Call [facility] [place] in reach. Side rails up X2. Provided Education on: POC. Verbalized understanding. . Client placed on continuous cardiac and pulse oximetry monitoring. NIBP monitoring applied. lunchroom monitor on. Pulse ox on. NIBP on. 12:59 No provider procedures requiring assistance completed. me1 13:33 Initial lab(s) drawn, by ED staff, sent to lab. Inserted saline lock: 22 gauge in left [facility] antecubital area, using aseptic technique. 13:51 Basic Metabolic Panel Sent. me1 13:51 D-Dimer Sent. me1 13:51 LFT's Sent. me1 13:51 Magnesium Sent. me1 13:51 NT PRO-BNP Sent. me1 13:51 PT-INR Sent. me1 13:51 Troponin HS Sent. me1 13:52 CT Chest For PE Angio In Process Unspecified. EDMS 14:02 XRAY Chest (1 view) In Process Unspecified. EDMS 14:07 Primary Nurse role handed off by Antonino Cullen, RN me1 14:07 Teri Denton, RN is Primary Nurse. me1 14:07 EKG done, by ED staff, reviewed by Chelo Capone MD. me1 15:23 Foot Left 3 View XRAY In Process Unspecified. EDMS 15:40 Blood Culture Adult (2) Sent. me1 15:40 Lactate w/ 2H reflex if indic. Sent. me1 15:40 First set of blood cultures drawn by me, Second set of blood cultures drawn by ms. me1 15:45 Allan Ellington MD is Hospitalizing Provider. gb1 16:45 South cath inserted, using sterile technique, 16 Fr., by wet roller, balloon inflated, to me1 gravity drainage. 18:24 Patient admitted, IV remains in place. me1 Administered Medications: 15:40 Drug: HYDROcodone-acetaminophen PO 5 mg-325 mg 1 tabs PO once Route: PO; me1 16:41 Follow up: Response: No adverse reaction; Pain is decreased me1 15:41 Drug: Cefepime IVPB 2 grams IVPB at 200 ml/hr once over 30 mins; (mix in NS 100 mL) me1 Route: IVPB; Rate: 200 ml/hr; Infused Over: 30 mins; Site: left antecubital; 16:40 Follow up: Response: No adverse reaction; IV Status: Completed infusion; IV Intake: me1 100ml 16:08 Not Given (bp 92/55, hold per Dr Wick): [id number] mg IVP once; give over 2 me1 minutes 16:40 Drug: vancoMYCIN IVPB 15 mg/kg IVPB once; once over 2 hrs; not to exceed 2 grams; (mix me1 in 250 to 500 mL NS) Route: IVPB; Site: left antecubital; 18:27 Follow up: IV Status: Infusion continued upon admission me1 Medication: 12:59 VIS not applicable for this client. me1 Intake: 16:40 IV: 100ml; Total: 100ml. me1 Outcome: 15:47 Decision to Hospitalize by Provider. gb1 18:24 Admitted to Med/surg accompanied by tech, via stretcher, room 206, with chart, Report me1 called to faxed, receipt confirmed by Martha. 18:26 Condition: stable me1 19:17 Patient left the ED. me1 Signatures: Dispatcher [employer] EDAntonino Dale, RN RN Zulay Billings, PA-C PA-Teri Kenney RN RN me1 Chelo Capone MD MD gb1 Corrections: (The following items were deleted from the chart) 13:43 12:47 Chief complaint: EMS states: Toned out for generalized weakness and near syncope. aurelio Has pancreatic cancer on chemo, last tx on Tuesday. bp 13:43 12:47 Coronavirus screen: Vaccine status: Patient reports receiving the 2nd dose of the [facility] covid vaccine. bp 13:43 12:47 Ebola Screen: No symptoms or risks identified at this time. bp me1 13:43 12:47 Initial Sepsis Screen: Does the patient meet any 2 criteria? No. Patient's me1 initial sepsis screen is negative. Does the patient have a suspected source of infection? No. Patient's initial sepsis screen is negative. bp 13:43 12:47 Risk Assessment: Do you want to hurt yourself or someone else? Patient reports no me1 desire to harm self or others. bp 13:43 12:47 Onset of symptoms was March 19, 2024 bp me1 13:43 12:47 Method Of Arrival: EMS: [facility] bp me1 13:43 12:47 BP 106 / 75; Pulse 123bpm; Resp 19bpm; Pulse Ox 100% RA; Temp 98F; 91.63 kg; me1 Height 5 ft. 0 in.; BMI: 39.4; bp 13:43 12:47 Acuity: KELSEA 3 bp me1 13:44 12:56 Immunization history: Adult Immunizations up to date, bp me1 13:44 12:56 Infectious Disease History: Denies. bp me1 13:44 12:56 Social history: Smoking status: Patient denies any tobacco usage or history of. bpme1 13:45 12:56 General: Appears comfortable, well groomed, well developed, well nourished, me1 Behavior is calm, cooperative, appropriate for age, Reports c/o generalized weakness and fatigue. 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 bp me1 13:45 12:56 EENT: No signs and/or symptoms were reported regarding the EENT system. bp me1 13:45 12:56 Neuro: Level of Consciousness is awake, alert, obeys commands, Oriented to me1 person, place, time, situation, Appropriate for age Reports dizziness, near syncope. bp 13:45 12:56 Cardiovascular: Patient's skin is warm and dry. bp me1 13:45 12:56 Respiratory: Airway is patent Respiratory effort is even, unlabored, Respiratory me1 pattern is regular, symmetrical, bp 13:45 12:56 GI: Reports nausea, bp me1 13:45 12:56 : No signs and/or symptoms were reported regarding the genitourinary system. bp me1 13:45 12:56 Derm: Skin is intact, is healthy with good turgor, Skin is pink, warm \T\ dry. bp me1 13:45 12:56 Musculoskeletal: Reports weakness in generalized bp me1 13:45 12:59 VIS not applicable for this client. bp me1 13:46 12:56 Arm band placed on bp me1 13:46 12:59 Patient has correct armband on for positive identification. Bed in low position. me1 Call light in reach. Side rails up X2. bp 13:46 12:59 Provided Education on: POC. Verbalized understanding. . bp me1 13:46 12:59 Client placed on continuous cardiac and pulse oximetry monitoring. NIBP me1 monitoring applied. lunchroom monitor on. Pulse ox on. NIBP on. bp 13:46 12:59 General: See triage assessment. . bp me1 13:46 12:59 [facility] ED Fall Risk Assessment (Adult) History of falling in the last 3 months, me1 including since admission No falls in past 3 months (0 pts) Confusion or Disorientation No (0 pts) Intoxicated or Sedated No (0 pts) Impaired Gait No (0 pts) Mobility Assist Device Used No (0 pt) Altered Elimination No (0 pt) Score/Fall Risk Level 0 - 2 = Low Risk Maintained a safe environment, Provided non-skid footwear, Hourly rounding (assess needs \T\ fall precautionary measures) done, bp 13:46 12:59 Abuse screen: Denies threats or abuse. bp me1 13:46 12:59 Nutritional screening: No deficits noted. bp me1 13:46 12:59 Tuberculosis screening: No symptoms or risk factors identified. bp me1 13:47 12:59 No provider procedures requiring assistance completed. bp me1 13:47 13:33 Inserted saline lock: 22 gauge in left antecubital area, using aseptic technique. me1 bp 13:47 13:33 Initial lab(s) drawn, by ED staff, sent to lab. bp me1 16:08 15:41 Furosemide IVP 40 mg IVP in left antecubital me1 me1
--- NOTE | 2024-03-19 15:48 | EDPHYS ---
Physician Documentation [facility] Name: Fiona Pickens Age: 74 yrs Sex: Female : 1950 Arrival Date: 03/19/2024 Time: 12:37 Bed 20 Private MD: ED Physician Chelo Capone HPI: 03/19 13:49 This 74 yrs old Female presents to ER via EMS with complaints of sob. gb1 13:49 74-year-old female with history of stage IIIa pancreatic cancer is here with gb1 palpitations from her daughter's perspective they were in the building and she became lightheaded to try to get on her vehicle and she was unable to do so. She felt weak and started having palpitations. Patient had chemotherapy last on . She has a history of diabetes, hypertension, thyroid disease, hyperlipidemia and morbid obesity.. Historical: - Allergies: 12:56 abatacept; bp 12:56 Aspirin; bp 12:56 diphenhydramine HCl; bp 12:56 erythromycin base; bp 12:56 LEFLUNOMIDE; bp 12:56 Lorazepam; bp 12:56 maltose; bp 12:56 Ondansetron HCl; bp 12:56 Rifampin; bp 12:56 Sulfa (Sulfonamide Antibiotics); bp 12:56 rivaroxaban; bp 12:56 tofacitinib citrate; bp - PMHx: 12:56 diabetes mellitus; PANCREATATIC CANCER (thyroid meds); Hypertensive disorder; thyroid bp meds; - PSHx: 12:56 Adenoid excision; section; Cholecystectomy; Gastric Bypass; PANULECTOTOMY; bp RIGHT 5TH TOE AMPUTATION; Right hip replacement; Thyroidectomy; Tonsillectomy; Total abdominal hysterectomy; - Immunization history:: Adult Immunizations up to date. - Infectious Disease History:: Denies. - Social history:: Smoking status: Patient denies any tobacco usage or history of. Exam: 13:49 Constitutional: This is a well developed, well nourished patient who is awake, alert, gb1 and in no acute distress. Head/Face: Normocephalic, atraumatic. Eyes: Pupils equal round and reactive to light, extra-ocular motions intact. Lids and lashes normal. Conjunctiva and sclera are non-icteric and not injected. Cornea within normal limits. Periorbital areas with no swelling, redness, or edema. ENT: Nares patent. No nasal discharge, no septal abnormalities noted. Tympanic membranes are normal and external auditory canals are clear. Oropharynx with no redness, swelling, or masses, exudates, or evidence of obstruction, uvula midline. Mucous membranes moist. Neck: Trachea midline, no thyromegaly or masses palpated, and no cervical lymphadenopathy. Supple, full range of motion without nuchal rigidity, or vertebral point tenderness. No Meningismus. Chest/axilla: Normal chest wall appearance and motion. Nontender with no deformity. No lesions are appreciated. Cardiovascular: Tachycardic rate and rhythm with a normal S1 and S2. No gallops, murmurs, or rubs. Normal PMI, no JVD. No pulse deficits. Respiratory: Lungs have equal breath sounds bilaterally, clear to auscultation and percussion. No rales, rhonchi or wheezes noted. No increased work of breathing, no retractions or nasal flaring. Abdomen/GI: Soft, non-tender, with normal bowel sounds. No distension or tympany. No guarding or rebound. No evidence of tenderness throughout. Back: No spinal tenderness. No costovertebral tenderness. Full range of motion. Skin: Warm, dry with normal turgor. Normal color with no rashes, no lesions, and no evidence of cellulitis. MS/ Extremity: Pulses equal, no cyanosis. Neurovascular intact. Full, normal range of motion. Neuro: Awake and alert, GCS 15, oriented to person, place, time, and situation. Cranial nerves II-XII grossly intact. Motor strength 5/5 in all extremities. Sensory grossly intact. Cerebellar exam normal. Normal gait. Vital Signs: 12:47 BP 106 / 75; Pulse 123; Resp 19; Temp 98; Pulse Ox 100% on R/A; Weight 91.63 kg; Height me1 5 ft. 0 in. ; 13:00 BP 126 / 76; Pulse 127; Resp 18; Pulse Ox 98% on R/A; me1 14:00 BP 131 / 74; Pulse 131; Resp 17; Pulse Ox 100% on R/A; me1 15:00 BP 122 / 57; Pulse 125; Resp 24; Pulse Ox 99% on R/A; me1 16:00 BP 116 / 70; Pulse 123; Resp 23; Pulse Ox 99% on R/A; [facility] 17:00 BP 113 / 65; Pulse 96; Resp 19; Pulse Ox 96% on R/A; [facility] 18:00 BP 111 / 60; Pulse 122; Resp 24; Pulse Ox 97% on R/A; id1 12:47 Body Mass Index 39.45 (91.63 kg, 152.4 cm) [facility] MDM: 12:43 Patient medically screened. [facility] 13:49 Data reviewed: vital signs, nurses notes, EKG. [facility] 15:43 Differential Diagnosis 74-year-old female with history of stage IIIa pancreatic cancer gb1 on chemotherapy, with left foot cellulitis secondary to diabetic foot ulcer x-rays pending as some concern for acute osteomyelitis. I started IV antibiotics vancomycin and cefepime. Patient with a BNP greater than 5000 and a left pleural effusion no PE on CT angiogram of chest and HD has a stable respiratory status. Heart rate in the 120s sinus tach.. 03/19 13:13 Order name: Basic Metabolic Panel [facility] 03/19 13:13 Order name: CBC with Diff; Complete Time: 14:39 [facility] 03/19 14:40 Interpretation: Abnormal. [facility] 03/19 13:13 Order name: D-Dimer; Complete Time: 14:39 [facility] 03/19 13:13 Order name: LFT's [facility] 03/19 13:13 Order name: Magnesium [facility] 03/19 13:13 Order name: NT PRO-BNP [facility] 03/19 13:13 Order name: PT-INR; Complete Time: 14:39 [facility] 03/19 13:13 Order name: Troponin HS [facility] 03/19 13:45 Order name: CBC Smear Scan; Complete Time: 14:39 EDND 03/19 14:43 Order name: Blood Culture Adult (2) [facility] 03/19 14:43 Order name: Lactate w/ 2H reflex if indic.; Complete Time: 16:16 [facility] 03/19 14:52 Order name: Wound Culture [facility] 03/19 17:57 Order name: Lactate w/ 2H reflex if indic. EDND 03/19 17:57 Order name: Thyroid Stimulating Hormone [facility] 03/19 17:57 Order name: Urinalysis w/ reflexes MS 03/19 17:57 Order name: CBC with Automated Diff [facility] 03/19 17:57 Order name: CBC with Automated Diff EDMS 06/03 17:57 Order name: CBC with Automated Diff EDMS / 17:57 Order name: CBC with Automated Diff EDMS 06/ 17:57 Order name: Comprehensive Metabolic Panel EDMS 06/ 17:57 Order name: Comprehensive Metabolic Panel EDMS 06/ 17:57 Order name: Comprehensive Metabolic Panel EDMS 06/ 17:57 Order name: Comprehensive Metabolic Panel EDMS 06/ 17:57 Order name: Lipid Profile EDMS 06/ 17:57 Order name: Lipid Profile EDMS 06/ 17:57 Order name: Magnesium EDMS 06/ 17:57 Order name: Magnesium EDMS 06/ 17:57 Order name: Magnesium EDMS 06/ 17:57 Order name: Magnesium EDMS 06/ 17:57 Order name: Phosphorus EDMS 06/ 17:57 Order name: Phosphorus EDMS / 17:57 Order name: Phosphorus EDMS / 17:57 Order name: Phosphorus EDMS 06/ 13:13 Order name: XRAY Chest (1 view); Complete Time: 16:16 gb1 03/19 13:13 Order name: CT Chest For PE Angio; Complete Time: 15:38 gb1 03/19 14:43 Order name: Foot Left 3 View XRAY; Complete Time: 16:16 gb1 03/19 13:13 Order name: EKG; Complete Time: 13:13 gb1 03/19 17:57 Order name: [facility] EDMS / 13:13 Order name: Cardiac monitoring; Complete Time: 14:06 gb1 03/19 13:13 Order name: EKG - Nurse/Tech; Complete Time: 14:06 gb1 03/19 13:13 Order name: IV Saline Lock; Complete Time: 13:51 gb1 03/19 13:13 Order name: Labs collected and sent; Complete Time: 13:51 gb1 03/19 13:13 Order name: O2 Per Protocol; Complete Time: 13:51 gb1 03/19 13:13 Order name: O2 Sat Monitoring; Complete Time: 13:51 gb1 03/19 13:41 Order name: Labs - recollect needed: recollect light blue top; Complete Time: 14:06 bd 03/19 15:15 Order name: South; Complete Time: 18:10 gb1 Administered Medications: 15:40 Drug: HYDROcodone-acetaminophen PO 5 mg-325 mg 1 tabs PO once Route: PO; me1 16:41 Follow up: Response: No adverse reaction; Pain is decreased me1 15:41 Drug: Cefepime IVPB 2 grams IVPB at 200 ml/hr once over 30 mins; (mix in NS 100 mL) me1 Route: IVPB; Rate: 200 ml/hr; Infused Over: 30 mins; Site: left antecubital; 16:40 Follow up: Response: No adverse reaction; IV Status: Completed infusion; IV Intake: me1 100ml 16:08 Not Given (bp 92/55, hold per Dr Wick): [id number] mg IVP once; give over 2 me1 minutes 16:40 Drug: vancoMYCIN IVPB 15 mg/kg IVPB once; once over 2 hrs; not to exceed 2 grams; (mix me1 in 250 to 500 mL NS) Route: IVPB; Site: left antecubital; 18:27 Follow up: IV Status: Infusion continued upon admission me1 Disposition Summary: 03/19/24 15:47 Hospitalization Ordered Notes: Hospitalization Status: Inpatient Admission gb1 Provider: Allan Ellington gb1 Condition: Fair gb1 Problem: new gb1 Symptoms: are unchanged gb1 Bed/Room Type: Standard [facility] Location: Telemetry/MedSurg (Inpatient)(03/19/24 18:07) Room Assignment: [facility] [place](03/19/24 18:07) bd Diagnosis - Cellulitis of left lower limb gb1 - Pleural effusion, not elsewhere classified gb1 - Acute on chronic diastolic (congestive) heart failure gb1 Forms: - Medication Reconciliation Form gb1 - SBAR form gb1 - Leadership Thank You Letter gb1 Signatures: Dispatcher [employer] EDMS Lelo Dubon Brian, RN RN bp Teri Denton RN RN [facility] Chelo Capone MD MD gb1 Corrections: (The following items were deleted from the chart) 13:13 13:13 BASIC METABOLIC PANEL+C.LAB.BRZ ordered. EDMS EDMS 13:13 13:13 CBC+H.LAB.BRZ ordered. EDMS EDMS 13:13 13:13 D-DIMER+COAG.LAB.BRZ ordered. EDMS EDMS 13:13 13:13 HEPATIC FUNCTION+C.LAB.BRZ ordered. EDMS EDMS 13:13 13:13 MAGNESIUM+C.LAB.BRZ ordered. EDMS EDMS 13:13 13:13 PROBNP+C.LAB.BRZ ordered. EDMS EDMS 13:13 13:13 PROTIME (+INR)+COAG.LAB.BRZ ordered. EDMS EDMS 13:13 13:13 Troponin High Sensitivity+C.LAB.BRZ ordered. EDMS EDMS 13:44 12:56 Immunization history: Adult Immunizations up to date, bp me1 13:44 12:56 Infectious Disease History: Denies. bp me1 13:44 12:56 Social history: Smoking status: Patient denies any tobacco usage or history of. bpme1 16:56 15:47 Telemetry/MedSurg (observation) gb1 bd 16:56 15:47 gb1 bd 18:07 16:56 BR ER HOLD bd bd 18:07 16:56 ERHOLD- bd bd
[2024-03-19] MEDS: VANCOMYCIN 1.5 GM in NA CHLORIDE 0.9% 500 ML IVPB ONE (16:00)
--- NOTE | 2024-03-19 16:03 | RAD REPORT ---
EXAM DESCRIPTION: RADChest Single View03/19/2024 2:00 pm CLINICAL HISTORY: SOB COMPARISON: Chest Single View dated 03/06/2024; Abdomen 1 View (KUB) dated 02/24/2024; Chest Pa And La t (2 Views) dated 02/24/2024; Chest Pa And Lat (2 Views) dated 01/21/2016; Chest For Pe Angio dated 2023 TECHNIQUE: Portable AP view of the chest. FINDINGS: Stable to mildly improved right small to moderate pleural effusion. Central interstitial p rominence may relate to underlying atelectasis. Right arm Port-A-Cath in place. . No pneumothorax or effusion. The cardiomediastinal contours are unremarkable. IMPRESSION: Stable right pleural effusion, with underlying atelectasis or pneumonia. .
--- NOTE | 2024-03-19 16:04 | P.HP ---
Certification for Inpatient Patient admitted to: Inpatient With expected LOS: >2 Midnights Patient will require the following post-hospital care: None Practitioner: I am a practitioner with admitting privileges, knowledge of patient current condition, hospital course, and medical plan of care. Services: Services provided to patient in accordance with Admission requirements found in Title 42 Section 412.3 of the Code of Federal Regulations <JaquelineTori Espinoza - Last Filed: 03/19/24 18:15> Patient History Date of Service: 03/19/24 Primary Care Provider: Susan Reason for admission: sepsis, diabetic wound left foot History of Present Illness: Pt is a 74 yo female with past medical history of Stage 3a pancreatic cancer, DM II, Htn, and thyroid disease who presents with SOB and palpitation. Her daughter reports that pt felt lightheaded while trying to get on the wheelchair. She felt weak and was unable to accomplish the task. This made her come to the ER for evaluation. On admission, lab studies show wbc 10.2, Hgb 10.1, K 3.5, Cr 0.99, D-dimer 1834, lactate 2.6 and BNP 5038. CXR has left pleural effusion. At bedside, pt is in NAD. Home medications list reviewed: Yes (Daughter to bring list) - Past Medical/Surgical History Diabetic: Yes -: MRSA -: HTN -: DM -: RHEUMATOID ARTHRITIS -: OA -: GASTROPARESIS -: DVT X3 -: PNEUMONIA -: CELLULITIS BOTH LEGS -: POLIO -: FIBROMYALGIA -: THYROID CA-196, pancreatic ca - current -: Thyroidectomy -: Tonsillectomy -: Cholecystectomy -: Hysterectomy -: -: Gastric Bypass -: Panniculectomy Psychosocial/ Personal History: Lives at home, , recently with home health aide, unable to ambulate 2nd to damage from Chemo - Family History Father -: Heart disease, Hypertension Mother -: Hypertension, Cancer Sister -: Hypertension - Social History Smoking Status: Unknown if ever smoked Alcohol use: No CD- Drugs: No Caffeine use: Yes Place of Residence: Home <Tori Parsons - Last Filed: 03/19/24 18:15> Date of Service: 03/19/24 <Allan Ellington - Last Filed: 03/19/24 21:13> Allergies abatacept [From Orencia] Allergy (Severe, Verified 02/02/23 17:17) respiratory distress maltose [From Orencia] Allergy (Severe, Verified 02/02/23 17:17) respiratory distress aspirin Allergy (Intermediate, Verified 02/02/23 17:17) dyspepsia erythromycin base [Erythromycin Base] Allergy (Intermediate, Verified 02/02/23 17:17) Rash leflunomide [From Arava] Allergy (Intermediate, Verified 02/02/23 17:17) cellulitis ondansetron HCl [From Zofran] Allergy (Intermediate, Verified 02/02/23 17:17) Headache rifampin Allergy (Intermediate, Verified 02/02/23 17:17) Joint Pain Sulfa (Sulfonamide Antibiotics) Allergy (Intermediate, Verified 02/02/23 17:17) Hives/Rash tofacitinib citrate [From Xeljanz] Allergy (Intermediate, Verified 02/02/23 17:17) Shortness of breath lorazepam [From Ativan] Adverse Reaction (Severe, Verified 02/02/23 17:17) confusion diphenhydramine HCl [From Benadryl] Adverse Reaction (Mild, Verified 02/02/23 17:17) Agitation rivaroxaban [From Xarelto] Adverse Reaction (Verified 02/02/23 17:17) Joint Pain aspirin Allergy (Uncoded 02/02/23 17:17) Unknown Biologics for Arthritis Allergy (Uncoded 02/02/23 17:17) Unknown Home Medications: Cyclobenzaprine [Flexeril*] 1 tab PO TID PRN 01/22/21 Dapagliflozin Propanediol [Farxiga] 1 tab PO DAILY 01/22/21 Famotidine [Pepcid] 4 tab PO BEDTIME 01/22/21 Lortab 7.5 Mg 1 tab PO TID PRN 01/22/21 Milnacipran HCl [Savella] 1 tab PO BID 6AM 6PM 01/22/21 Nifedipine [Procardia Xl] 1 tab PO DAILY 01/22/21 Ropinirole HCl [Requip] 1 tab PO BEDTIME 01/22/21 cloNIDine HCL [Clonidine HCl ER] 1 tab PO DAILY PRN 01/22/21 cloNIDine HCL [Clonidine HCl ER] 2 tab PO BEDTIME 01/22/21 Amitriptyline [Elavil*] 75 mg PO BEDTIME 04/04/23 Calcium Citrate 400 mg PO BID 04/04/23 Cholecalciferol (Vitamin D3) [Vitamin D 5,000 IU Cap*] 1 cap PO BEDTIME 04/04/23 Docusate Sodium 100 mg PO BID 04/04/23 Insulin Degludec [Tresiba] 16 unit SQ DAILY 04/04/23 Levothyroxine [Synthroid] 0.3 mg PO [id number] 04/04/23 Meclizine HCl 25 mg PO PRN PRN 04/04/23 Nebivolol HCl [Bystolic] 20 mg PO BEDTIME 04/04/23 Omeprazole [Prilosec] 80 mg PO [id number] 04/04/23 Pioglitazone HCl [Actos] 10 mg PO 04/04/23 Doxycycline Hyclate 100 mg PO BID #15 cap 04/13/23 Review of Systems 10-point ROS is otherwise unremarkable General: Weakness, Malaise Respiratory: Shortness of Breath, As per HPI Cardiovascular: Palpitations Musculoskeletal: As per HPI Integumentary: Other (left heel tender, malodorous) <Tori Parsons - Last Filed: 03/19/24 18:15> Physical Examination - Physical Exam General: Alert, In no apparent distress, Oriented x3, Other (pale) HEENT: Atraumatic, Normocephalic Neck: Supple Respiratory: Diminished Cardiovascular: Regular rate/rhythm (tachycardic) Capillary refill: <2 Seconds Gastrointestinal: Non-distended Musculoskeletal: No clubbing Integumentary: Diabetic ulcer (left heel - placed placenta but pt states became more erythematous, painful, and malodorous), Other (pallor) Neurological: Normal speech, Normal affect, Abnormal strength Lymphatics: No axilla or inguinal lymphadenopathy External genitalia: Deferred Rectal: Deferred - Studies Laboratory Data (last 24 hrs) 03/19/24 03/19/24 03/19/24 14:04 13:30 13:30 WBC 10.20 Hgb 10.1 L Hct 31.4 L Plt Count 231 PT 19.1 H INR 1.77 Sodium 136 Potassium 3.5 BUN 14 Creatinine 0.99 Glucose 174 H Magnesium 1.9 Total Bilirubin 1.1 H AST 128 H ALT 46 Alkaline Phosphatase 89 <Tori Parsons - Last Filed: 03/19/24 18:15> - Studies Laboratory Data (last 24 hrs) 03/19/24 03/19/24 03/19/24 14:04 13:30 13:30 WBC 10.20 Hgb 10.1 L Hct 31.4 L Plt Count 231 PT 19.1 H INR 1.77 Sodium 136 Potassium 3.5 BUN 14 Creatinine 0.99 Glucose 174 H Magnesium 1.9 Total Bilirubin 1.1 H AST 128 H ALT 46 Alkaline Phosphatase 89 <Allan Ellington Kourtney - Last Filed: 03/19/24 21:13> Assessment and Plan - Plan A/P: Pancreatic cancer stage 3a: Currently on chemotherapy. She sees Dr. Davis. Left foot diabetic wound: Will continue iv Vanc and cefepime, f/u wound cx and continue wound care. Lactic acidosis: Lactate is 2.6. Will continue IVf and trend lactate. Elevated D-dimer: D-dimer is 1834. CTA chest is negative for PE. Elevated BNP: BNP is 5053. Will f/u Echo given that is she os in chemotherapy. Monitor volume status and BP. Right pleural effusion: Per CTA chest. Will monitor resp status. DM II: Continue accuchek, SSI and ADA diet Htn: Continue home meds Thyroid dz: Will check TSH. DVT ppx: SCD Code: full - Advance Directives Does patient have a Living Will: No Does patient have a Durable POA for Healthcare: No <ParsonsTori - Last Filed: 03/19/24 18:15> Physician Review Additional Text: Pt seen and examined. I agree with the note by the MEDICAL TRANSCRIBER. Pt is a 74 yo female with past medical history of Stage 3a pancreatic cancer, DM II, Htn, and thyroid disease who presents with SOB and palpitation. Her daughter reports that pt felt lightheaded while trying to get on the wheelchair. She felt weak and was unable to accomplish the task. This made her come to the ER for evaluation. On admission, lab studies show wbc 10.2, Hgb 10.1, K 3.5, Cr 0.99, D-dimer 1834, lactate 2.6 and BNP 5038. CXR has left pleural effusion. At bedside, pt is in NAD. A/P: Pancreatic cancer stage 3a: Currently on chemotherapy. She sees Dr. Susan. Left foot diabetic wound: Will continue iv Vanc and cefepime, f/u wound cx and continue wound care. Lactic acidosis: Lactate is 2.6. Will continue IVf and trend lactate. Elevated D-dimer: D-dimer is 1834. CTA chest is negative for PE. Elevated BNP: BNP is 5053. Will f/u Echo given that is she os in chemotherapy. Monitor volume status and BP. Right pleural effusion: Per CTA chest. Will monitor resp status. DM II: Continue accuchek, SSI and ADA diet Htn: Continue home meds Thyroid dz: Will check TSH. DVT ppx: SCD Code: full <Allan Ellington - Last Filed: 03/19/24 21:13>
--- NOTE | 2024-03-19 16:12 | RAD REPORT ---
EXAM DESCRIPTION: RAD - Foot Left 3 View - 03/19/2024 3:21 pm CLINICAL HISTORY: SWELLING COMPARISON: Foot Left 2 View dated 03/06/2024; Os Calcis (Calcaneus) Heel dated 06/22/2023 TECHNIQUE: Left foot, 3 views. FINDINGS: No fracture, dislocation or periosteal reaction. No air or foreign body in the soft tissues. Vascular calcifications and heterotopic opacification in the posterior soft tissues, which may be wit hin the substance of the Achillis tendon, stable. IMPRESSION: No acute osseus abnormality. Chronic findings as above.
[2024-03-19] MEDS: IPRATROPIUM BROM 0.5MG/2.5ML NEB SCH (19:00)
[2024-03-19] MEDS: ALBUTEROL 2.5 MG/3 ML NEB SOL NEB SCH (19:00)
[2024-03-19] MEDS: ENOXAPARIN 40 MG/0.4 ML SQ SCH (20:34)
[2024-03-19] MEDS: CEFEPIME 1 GM in NA CHLORIDE 0.9% 100 ML IV SCH (20:34)
[2024-03-19] MEDS: INSULIN REGULAR (HUMAN) 100 UNIT/ML SQ SCH (21:00)
--- NOTE | 2024-03-19 21:13 | P.PN ---
Date of Service: 03/19/24 Patient noted on telemetry to have new onset A-fib. Likely cause of patient's palpitations on admission. Will place cardiology consult in a.m. Follow TSH/controlled magnesium Start empirical digoxin loading doses tonight since borderline low blood pressure
[2024-03-19] MEDS: DIGOXIN 0.25 MG/ML AMP IV SCH (21:30)
[2024-03-20] MEDS: MORPHINE 4 MG/ML SYR IV ONE (00:28)
[2024-03-20 00:43] LABS: Thyroid Stimulating Hormone 1.58 uIU/mL (0.358-3.740)
[2024-03-20 03:36] VITALS: BMI 39.4
[2024-03-20] MEDS: CEFEPIME 1 GM in NA CHLORIDE 0.9% 100 ML IV SCH (05:19)
[2024-03-20] MEDS: LEVOTHYROXINE SOD 0.125 MG TAB PO SCH (06:08)
[2024-03-20] MEDS: VANCOMYCIN 1.75 GM in NA CHLORIDE 0.9% 500 ML IVPB SCH (06:12)
[2024-03-20 08:33] LABS: Absolute Basophils 0.1 K/uL (0-0.5); Absolute Lymphocytes (CBC) 1.2 K/uL (0.7-4.9); Absolute Monocytes 0.1 K/uL (0.1-1.3); Absolute Neutrophil 3.2 K/uL (1.8-8.0); Basophils % 1.3 % (0-1.3); Eosinophils % 0.8 % (0-4.4); Hematocrit 28.7 % (36.0-45.0); Hemoglobin 9.6 g/dL (12.0-15.0); MCH 31.8 pg (27.0-35.0); MCHC 33.4 g/dL (32.0-36.0); MPV 10.1 fL (7.6-11.3); Monocytes % 2.5 % (3.3-12.3); Neutrophils % 70.4 % (41.7-73.7); Nucleated Red Blood Cells % 0.2 % (0-0); Platelets 199 thou/uL (152-406); RBC Red Blood Cell Count 3.02 M/uL (3.86-4.86); Red Cell Distribution Width 14.6 % (12.1-15.2)
[2024-03-20 08:58] LABS: Albumin 1.5 g/dL (3.4-5.0); Albumin/Globulin Ratio 0.4 (1.1-1.8); Anion Gap 8.4 mEq/L (5.0-15.0); Bilirubin Total 0.7 mg/dL (0.2-1.0); Digoxin Level 1.4 ng/mL (0.80-2.00); Globulin 3.5 g/dL (2.3-3.5); Magnesium 1.8 mg/dL (1.6-2.4); Phosphorus 3.1 mg/dL (2.5-4.9); Potassium 3.4 mEq/L (3.5-5.1)
[2024-03-20] MEDS: FUROSEMIDE 40 MG/4 ML VIAL IV SCH (09:14)
--- NOTE | 2024-03-20 09:52 | P.PN ---
Subjective Date of Service: 03/20/24 Primary Care Provider: Susan Chief Complaint: sepsis, diabetic wound left foot Subjective: C/O voiced (Pt tele showed a. fib RVR overnight, EKG from ED with Sinus tach. Digoxin x 2 doses IV given overnight. Will repeat EKG and obtain ECHO today) <Tori Parsons - Last Filed: 03/20/24 09:45> Date of Service: 03/20/24 <Allan Ellington C - Last Filed: 03/20/24 11:56> Review of Systems 10-point ROS is otherwise unremarkable General: Weakness, Malaise, As per HPI Respiratory: Shortness of Breath, As per HPI Cardiovascular: Palpitations, As per HPI Integumentary: As per HPI <Tori Parsons - Last Filed: 03/20/24 09:45> Physical Examination - Vital Signs Temperature: 97.8 F Blood Pressure: 135/63 Pulse: 115 Respirations: 17 Pulse Ox (%): 95 - Physical Exam General: Alert, In no apparent distress, Oriented x3 HEENT: Atraumatic, Normocephalic Neck: Supple Respiratory: Diminished Cardiovascular: No edema, Normal pulses, Other (tachycardic) Capillary refill: <2 Seconds Gastrointestinal: Soft and benign Musculoskeletal: No clubbing, No swelling Integumentary: Other (left heel with gauze wrap, mild erythema up to mid calf, ecchymosis up anterior miramontes x 3, erythema over joints) Neurological: Normal speech, Normal affect, Abnormal strength Lymphatics: No axilla or inguinal lymphadenopathy Urinary: South catheter External genitalia: Deferred Rectal: Deferred - Studies Laboratory Data (last 24 hrs) 03/19/24 03/19/24 03/19/24 14:04 13:30 13:30 WBC 10.20 Hgb 10.1 L Hct 31.4 L Plt Count 231 PT 19.1 H INR 1.77 Sodium 136 Potassium 3.5 BUN 14 Creatinine 0.99 Glucose 174 H Magnesium 1.9 Total Bilirubin 1.1 H AST 128 H ALT 46 Alkaline Phosphatase 89 <Tori Parsonslen - Last Filed: 03/20/24 09:45> - Studies Laboratory Data (last 24 hrs) 06/03/24 06/03/24 06/03/24 14:04 13:30 13:30 WBC 10.20 Hgb 10.1 L Hct 31.4 L Plt Count 231 PT 19.1 H INR 1.77 Sodium 136 Potassium 3.5 BUN 14 Creatinine 0.99 Glucose 174 H Magnesium 1.9 Total Bilirubin 1.1 H AST 128 H ALT 46 Alkaline Phosphatase 89 Microbiology Data (last 24 hrs): 03/19/24 15:30 Wound - Left Heel Gram Stain - Final <Allan Ellington - Last Filed: 03/20/24 11:56> Assessment And Plan - Plan A/P: Pancreatic cancer stage 3a: Currently on chemotherapy. She sees Dr. Davis. Supposed to have Chemo tx Left foot diabetic wound: Will continue iv Vanc and cefepime, f/u wound cx and continue wound care. Lactic acidosis: Lactate is 2.6. Will continue IVf and trend lactate. Elevated D-dimer: D-dimer is 1834. CTA chest is negative for PE. Lovenox 40mg sc daily at present Elevated BNP: BNP is 5053. Will f/u Echo given that is she os in chemotherapy. Monitor volume status and BP. 03/20/24 ECHO in progress 03/20/24 A. fib onset - Dig x 2 overnight, repeat 12 Lead today. Right pleural effusion: Per CTA chest. Will monitor resp status. Nebs, pulmonary toilet DM II: Continue accuchek, SSI and ADA diet Htn: Continue home meds Thyroid dz: Will check TSH. DVT ppx: SCD/lovenox 03/20/24 Generalized weakness: pt and family request PT consult Code: full <Tori Parsons - Last Filed: 03/20/24 09:45> - Plan Pt seen and examined. I agree with the note by the EVENT SET UP SPECIALIST. Will continue iv vanc and cefepime for the left foot wound. Pt received digoxin last night for ta chycardia. Will resume low dose metoprolol and telemetry. Consulted Cardiology. Check TSH and free t4 level. <Allan Ellington - Last Filed: 03/20/24 11:56>
[2024-03-20] MEDS: HYDROCODONE/APAP 5/325 MG TAB PO PRN (10:41)
--- NOTE | 2024-03-20 12:51 | ECHO ---
HEIGHT: 5 ft 0 in WEIGHT: 202 lb 0 oz DATE OF STUDY: 03/20/[address]: Tori Parsons SHIPPING CHECKER-BC 2-DIMENSIONAL: YES M.MODE: YES DOPPLER: YES COLOR FLOW: YES TDS: YES PORTABLE: YES DEFINITY: BUBBLE STUDY: DIAGNOSIS: SEPSIS, CHEMO, PLEURAL EFFUSION, CONGESTIVE HEART FAILURE CARDIAC HISTORY: CATHERIZATION: NO SURGERY: NO PROSTHETIC VALVE: NO PACEMAKER: NO MEASUREMENTS (cm) DIASTOLIC (NORMALS) SYSTOLIC (NORMALS) IVSd 1.1 (0.6-1.2) LA Diam 2.7 (1.9-4.0) LVEF 65% LVIDd 3.6 (3.5-5.7) LVIDs 2.6 (2.0-3.5) %FS 27% LVPWd 1.2 (0.6-1.2) Ao Diam 2.7 (2.0-3.7) 2 DIMENSIONAL ASSESSMENT: RIGHT ATRIUM: NORMAL LEFT ATRIUM: NORMAL RIGHT VENTRICLE: NORMAL LEFT VENTRICLE: NORMAL TRICUSPID VALVE: NORMAL MITRAL VALVE: NORMAL PULMONIC VALVE: NORMAL AORTIC VALVE: NORMAL PERICARDIAL EFFUSION: NONE AORTIC ROOT: NORMAL LEFT VENTRICULAR WALL MOTION: HYPERDYNAMIC LEFT VENTRICLE DOPPLER/COLOR FLOW: NORMAL COMMENTS: 1. HYPERDYNAMIC LEFT VENTRICLE, EJECTION FRACTION 65%, NORMAL WALL MOTION 2. NORMAL DIASTOLIC FUNCTION 3. INFERIOR VENA CAVA NOT VISUALIZED TECHNOLOGIST: TONG MORE
--- NOTE | 2024-03-20 13:16 | EKG ---
Test Date: 2024-03-20 Test Time: 10:22:29 Industrial Gas Fitter Helper: ALL MEASUREMENT RESULTS: Intervals: Rate: 123 NM: QRSD: 96 QT: 318 QTc: 455 [place]: P: NM: QRS: 62 T: 238 INTERPRETIVE STATEMENTS: Atrial fibrillation with rapid ventricular response Low voltage QRS Cannot rule out Anterior infarct, age undetermined ST & T wave abnormality, consider inferolateral ischemia or digitalis effect Abnormal ECG Compared to ECG 03/19/2024 13:58:32 Low QRS voltage now present ST (T wave) deviation now present Possible ischemia now present Sinus tachycardia no longer present Myocardial infarct finding still present Electronically Signed On 03-20-24 13:16:02 CDT by Bayron Monroe
--- NOTE | 2024-03-20 13:21 | EKG ---
Test Date: 2024-03-19 Test Time: 13:58:32 Contracting Manager: MEASUREMENT RESULTS: Intervals: Rate: 133 SD: 208 QRSD: 94 QT: 272 QTc: 404 [place]: P: 80 SD: 208 QRS: 93 T: 261 INTERPRETIVE STATEMENTS: Sinus tachycardia Septal infarct, age undetermined Abnormal ECG Compared to ECG 03/06/2024 07:57:32 Myocardial infarct finding now present Accelerated junctional rhythm no longer present Electronically Signed On 03-20-24 13:18:18 CDT by Bayron Monroe
--- NOTE | 2024-03-20 13:24 | RAD REPORT ---
EXAM DESCRIPTION: USExtremity Venous Uni Ltd03/20/2024 12:36 pm CLINICAL HISTORY: left leg pain COMPARISON: 2022 FINDINGS: Left common femoral, superficial femoral, greater saphenous, popliteal and posterior tibi al veins are compressible and demonstrate augmentation. Doppler demonstrates good flow. Grayscale, color and spectral analysis performed on all vessels IMPRESSION: No evidence of deep venous thrombosis involving the left lower extremity.
[2024-03-20] MEDS: LEVALBUTEROL 1.25 MG/3 ML NEB NEB SCH (14:00)
[2024-03-20 14:48] LABS: Specific Gravity 1.011 (1.005-1.030); Sqamous Epithelial <5 /HPF (None Seen); Urine Bacteria None Seen /HPF (<20); Urine Bilirubin NEGATIVE (Negative); Urine Blood 2+ (Negative); Urine Clarity Turbid (Clear); Urine Color Colorless (Yellow); Urine Culture Reflex Order NOT NEEDED; Urine Glucose 1+ (Negative); Urine Ketones NEGATIVE (Negative); Urine Microscopic Reflex YN ORDER UMIC; Urine Mucus Slight /HPF (None Seen); Urine Nitrite NEGATIVE (Negative); Urine Protein NEGATIVE (Negative); Urine Urobilinogen Normal (Normal); Urine Yeast (Budding) Trace /HPF (None Seen); Urine pH 5.5 (5.0-7.0)
[2024-03-20] MEDS: METOPROLOL TAR 25 MG TAB PO SCH (18:46)
[2024-03-20] MEDS ORDERED: METOPROLOL XL 25 MG TAB PO SCH (21:00)
[2024-03-20] MEDS: LACTOBACILLUS/ACIDOPHILUS TAB PO SCH (21:28)
[2024-03-20] MEDS: ENOXAPARIN 100 MG/ML SYR SQ SCH (21:28)
[2024-03-21 06:15] LABS: Absolute Basophils 0.1 K/uL (0-0.5); Absolute Lymphocytes (CBC) 1.4 K/uL (0.7-4.9); Absolute Monocytes 0.2 K/uL (0.1-1.3); Absolute Neutrophil 1.8 K/uL (1.8-8.0); Eosinophils % 0.9 % (0-4.4); Hematocrit 25.4 % (36.0-45.0); Hemoglobin 8.4 g/dL (12.0-15.0); Lymphocytes % 39.4 % (15.3-44.8); MCH 31.5 pg (27.0-35.0); MCHC 33.1 g/dL (32.0-36.0); MCV 95.2 fL (80-100); MPV 9.8 fL (7.6-11.3); Neutrophils % 51.7 % (41.7-73.7); Nucleated Red Blood Cells % 0.1 % (0-0); Platelets 151 thou/uL (152-406); RBC Red Blood Cell Count 2.67 M/uL (3.86-4.86); Red Cell Distribution Width 14.5 % (12.1-15.2)
[2024-03-21 06:38] LABS: Albumin 1.3 g/dL (3.4-5.0); Albumin/Globulin Ratio 0.4 (1.1-1.8); Anion Gap 9.1 mEq/L (5.0-15.0); Bilirubin Total 0.6 mg/dL (0.2-1.0); Globulin 3.5 g/dL (2.3-3.5); Magnesium 1.8 mg/dL (1.6-2.4); Phosphorus 2.4 mg/dL (2.5-4.9); Potassium 3.1 mEq/L (3.5-5.1); Protein, Total 4.8 g/dL (6.4-8.2)
[2024-03-21] MEDS: METOPROLOL TAR 25 MG TAB PO SCH (08:00)
[2024-03-21] MEDS ORDERED: propofoL 200 MG/20 ML VIAL IV ONE (08:26)
[2024-03-21] MEDS ORDERED: LIDOCAINE 2% MPF 5 ML VIAL ONE (08:26)
[2024-03-21] MEDS ORDERED: ONDANSETRON 4 MG/2 ML VIAL ONE (08:26)
[2024-03-21] MEDS ORDERED: FENTANYL CITR 100 MCG/2 ML ONE (08:26)
[2024-03-21] MEDS: HYDROMORPHONE HCL 1 MG/ML INJ IV PRN (08:42)
[2024-03-21] MEDS: **PT MED**Dapagliflozin Propanediol [Farxiga] 10 MG Tablet) PO SCH (08:43)
[2024-03-21] MEDS: DIAZEPAM 10 MG/2 ML INJ SYRINGE IV ONE (08:45)
[2024-03-21] MEDS: NIFEDIPINE XL 60 MG TABLET PO SCH (09:00)
[2024-03-21] MEDS: NA CHLORIDE 0.9% 1,000 ML ONE (09:15)
--- NOTE | 2024-03-21 10:39 | P.BOP ---
Preoperative diagnosis: left foot necrotic diabetic ulcer Postoperative diagnosis: same Primary procedure: Excisional subQ debridement of left foot necrotic diabetic ulcer 6x6cm Estimated blood loss: <3cc Findings: necrotic tissue Anesthesia: MAC Complications: None Drain(s): Other (wet to dry NS) Transferred to: Recovery Room Condition: Good
--- NOTE | 2024-03-21 10:56 | P.PN ---
Subjective Date of Service: 03/21/24 Primary Care Provider: Susan Chief Complaint: sepsis, diabetic wound left foot Pt is resting comfortably in bed. Gen surgeon will take pt to the OR today for wound debridement. Pt is NPO. Will resume sotalol 80mg po BID after the procedure. No DVT in left leg. Continue iv vanc and cefepime. No other complaints. Review of Systems General: Unremarkable Eyes: Unremarkable ENT: Unremarkable Respiratory: Unremarkable Cardiovascular: Unremarkable Gastrointestinal: Unremarkable Genitourinary: Unremarkable Musculoskeletal: Unremarkable Integumentary: Lesions Neurological: Unremarkable Lymphatics: Unremarkable Physical Examination - Vital Signs Temperature: 96.9 F Blood Pressure: 143/65 Pulse: 99 Respirations: 16 Pulse Ox (%): 94 - Physical Exam General: Alert, In no apparent distress, Oriented x3 HEENT: Atraumatic, Normocephalic, PERRLA Neck: Supple, 2+ carotid pulse no bruit, JVD not distended Respiratory: Clear to auscultation bilaterally, Normal air movement Cardiovascular: No edema, Normal pulses, Regular rate/rhythm, Normal S1 S2 Capillary refill: <2 Seconds Gastrointestinal: Normal bowel sounds, Soft and benign, Non-distended Musculoskeletal: No clubbing, No swelling Integumentary: No rashes, No significant lesion, Diabetic ulcer Neurological: Normal speech, Normal strength at 5/5 x4 extr, Normal tone, Sensation intact, Cranial nerves 3-12 intact Lymphatics: No axilla or inguinal lymphadenopathy - Studies Microbiology Data (last 24 hrs): 03/19/24 15:30 Wound - Left Heel Gram Stain - Final 03/19/24 15:30 Wound - Left Heel Culture & Sensitivity - Final Meth Resistant Staph Aureus Assessment And Plan - Plan Pancreatic cancer stage 3a: Currently on chemotherapy. She sees Dr. Davis. She was supposed to have Chemo tx A. fib with RVR: Will continue telemetry. metoprolol and therapeutic lovenox. Cardiology will start sotalol 80mg po BID after the procedure. 03/20/24 A. fib onset - Dig x 2 overnight, repeat 12 Lead today. Left foot diabetic wound: Will continue iv Vanc and cefepime, f/u wound cx and continue wound care. Gen surgery will do wound debridement today. Lactic acidosis: Lactate is 1.8 <- 2.6. Will continue IVF and trend lactate. Elevated D-dimer: D-dimer is 1834. CTA chest is negative for PE. Lovenox 40mg sc daily at present Elevated BNP: BNP is 5053. Echo shows EF 65%. Monitor volume status and BP. Right pleural effusion: Per CTA chest. Will monitor resp status. Nebs, pulmonary toilet DM II: Continue accuchek, SSI and ADA diet Htn: Continue home meds Thyroid dz: Will check TSH. DVT ppx: SCD/lovenox 03/20/24 Generalized weakness: pt and family request PT consult Code: full
[2024-03-21] MEDS: COLLAGENASE 30 GM OINTMENT TOP ONE (11:14)
--- NOTE | 2024-03-21 11:29 | OP ---
Date of Procedure: 03/21/2024 Surgeon: Orlin George MD Preoperative Diagnoses: Necrotic diabetic ulcer, left foot. History of pancreatic cancer, on chemot herapy. Postoperative Diagnoses: Necrotic diabetic ulcer, left foot. History of pancreatic cancer, on chemo therapy. Procedure: Excisional subcutaneous debridement of left foot necrotic diabetic ulcer under anesthesia , 6 x 6 cm. Estimated Blood Loss: Less than 3 cc. Specimen: Necrotic tissue. Anesthesia: MAC plus local. Complications: None. Packing: Wet-to-dry. Indications: This is a case of a 74-year-old patient, multiple medical problems. Unfortunately, she has necrotic diabetic ulcer, tender, need to be excised. Fluctuance is present. She cannot do it a t bedside. It is too tender, so benefits, alternatives, and risks of excisional debridement under an esthetic fully explained, which include, but not limited to, infection, bleeding, damage to adjacent structures, anesthesia complication, recurrence, NM, even . She also understands this may not r elieve symptoms. She might need more than one surgical intervention. She understands the importance of offloading that area, nutrition, and wound care. She signed a consent. Procedure In Detail: The area of concern was marked by me and the patient in the holding room. The patient was brought to the operating room and placed in supine position. Anesthesia was without comp lication. Left heel was prepped and draped in sterile fashion. Time-out was called. Local anesthes ia was applied, followed by sharp incision with an 11 blade of the necrotic tissue. Bone was not exp osed, although goes deep. The area was irrigated, hemostasis obtained, and the area was packed with wet-to-dry dressing. The patient tolerated procedure well. The patient was sent to recovery in stab le condition. HM/MODL Voice ID: [id number] Report ID: [id number]
--- NOTE | 2024-03-21 14:14 | CON ---
Date of Consultation: 03/20/2024 Reason For Service: Necrotic diabetic ulcer, left side. 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 Right now, she developed this necrotic ulcer on the left side. She is becoming weaker and weaker, so it is difficult for her to ambulate and then that puts pressure in th at region, combined with diabetes and obesity where she is at this moment. Is very tender , so needs to be debrided and I was consulted for surgical debridement under some sedation. Past Medical History: Hypertension, diabetes, rheumatoid arthritis, gastroparesis, DVT x3, pneumonia , cellulitis of both legs, polio, fibromyalgia, thyroid cancer 1961 and now pancreatic cancer diagnos ed just 2-3 months ago. Past Surgical History: Include cholecystectomy, hysterectomy, Lesly-en-Y gastric bypass, panniculecto my, hysterectomy, C-sections. Social History: She does not smoke. She does not drink alcohol. Family History: Includes heart disease and hypertension. Review of Systems: Left leg necrotic skin. Malaise. See HPI. 10 points otherwise unremarkable. Physical Examination: General: The patient is awake, alert, oriented x3. HEENT: Pupils are equal and reactive, anicteric. Neck: Supple. Chest: Clear. Abdomen: Soft and depressible with epigastric pain, although a lot less compared with before. Extremities: The patient has on the left foot a necrotic diabetic wound with an area of black eschar present. Fluctuance is present. Cellulitis present. Tender. Dorsalis pedis pulse bilateral dimin ished but still present. Good capillary refill. Data: Venous Doppler shows no evidence of DVTs involving the left lower extremity. Assessment: A 74-year-old patient with multiple medical problems including and chemothera py for pancreatic cancer, comes with diabetic necrotic foot ulcer. The debridement fully explained, benefits, alternatives, risks, including but not limited to, infection, bleeding, damage to adjacent structures, anesthesia complication, nonhealing wound, MO, even . She also understands this may not relieve the symptoms, she might need more than one surgical intervention. She understands the i mportance of diabetes control and offloading. HM/MODL Voice ID: [id number] Report ID: [id number]
[2024-03-21] MEDS: SOTALOL HCL 80 MG TAB PO SCH ×2 (15:14→20:00)
[2024-03-21] MEDS: PANTOPRAZOLE 40MG TABLET PO SCH (15:14)
--- NOTE | 2024-03-21 17:06 | P.CNS ---
Date of Consult: 03/21/24 Primary Care Provider: Susan Chief Complaint: sepsis, diabetic wound left foot History of Present Illness: Patient with past medical history of hypertension, pancreatic cancer, diabetes, presented with shortness of breath and palpitation, was found to have cellulitis of the lower extremity, developed A-fib with RVR while she was in the hospital. Reports some sharp chest pain on the left side with no radiation. She also reports some bilateral lower extremity swelling. Allergies abatacept [From Orencia] Allergy (Severe, Verified 02/02/23 17:17) respiratory distress maltose [From Orencia] Allergy (Severe, Verified 02/02/23 17:17) respiratory distress aspirin Allergy (Intermediate, Verified 02/02/23 17:17) dyspepsia erythromycin base [Erythromycin Base] Allergy (Intermediate, Verified 02/02/23 17:17) Rash leflunomide [From Arava] Allergy (Intermediate, Verified 02/02/23 17:17) cellulitis ondansetron HCl [From Zofran] Allergy (Intermediate, Verified 02/02/23 17:17) Headache rifampin Allergy (Intermediate, Verified 02/02/23 17:17) Joint Pain Sulfa (Sulfonamide Antibiotics) Allergy (Intermediate, Verified 02/02/23 17:17) Hives/Rash tofacitinib citrate [From Xeljanz] Allergy (Intermediate, Verified 02/02/23 17: 17) Shortness of breath lorazepam [From Ativan] Adverse Reaction (Severe, Verified 02/02/23 17:17) confusion diphenhydramine HCl [From Benadryl] Adverse Reaction (Mild, Verified 02/02/23 17:17) Agitation rivaroxaban [From Xarelto] Adverse Reaction (Verified 02/02/23 17:17) Joint Pain aspirin Allergy (Uncoded 02/02/23 17:17) Unknown Biologics for Arthritis Allergy (Uncoded 02/02/23 17:17) Unknown Home Medications: Cyclobenzaprine [Flexeril*] 1 tab PO TID PRN 01/22/21 Dapagliflozin Propanediol [Farxiga] 1 tab PO DAILY 01/22/21 Famotidine [Pepcid] 4 tab PO BEDTIME 01/22/21 Lortab 7.5 Mg 1 tab PO TID PRN 01/22/21 Milnacipran HCl [Savella] 1 tab PO BID 6AM 6PM 01/22/21 Nifedipine [Procardia Xl] 1 tab PO DAILY 01/22/21 Ropinirole HCl [Requip] 1 tab PO BEDTIME 01/22/21 Amitriptyline [Elavil*] 75 mg PO BEDTIME 04/04/23 Cholecalciferol (Vitamin D3) [Vitamin D 5,000 IU Cap*] 1 cap PO BEDTIME 04/04/23 Docusate Sodium 100 mg PO BID 04/04/23 Insulin Degludec [Tresiba] 16 unit SQ DAILY 04/04/23 Levothyroxine [Synthroid] 0.3 mg PO [id number] 04/04/23 Meclizine HCl 25 mg PO PRN PRN 04/04/23 Pioglitazone HCl [Actos] 15 mg PO PRN PRN 04/04/23 Docusate Sodium [Stool Softener] 50 mg PO BID* 03/20/24 Hydrocodone 5/APAP 325 [[place] 5/325] 1 tab PO Q6H PRN 03/20/24 Pantoprazole Sodium [Protonix] 40 mg PO BID* 03/20/24 Prochlorperazine Maleate [Compazine] 10 mg PO DAILYPRN PRN 03/20/24 Sennosides [Senokot] 8.6 mg PO BID* 03/20/24 - Past Medical/Surgical History Diabetic: Yes -: MRSA -: HTN -: DM -: RHEUMATOID ARTHRITIS -: OA -: GASTROPARESIS -: DVT X3 -: PNEUMONIA -: CELLULITIS BOTH LEGS -: POLIO -: FIBROMYALGIA -: THYROID CA-1961, pancreatic ca - current -: Thyroidectomy -: Tonsillectomy -: Cholecystectomy -: Hysterectomy -: -: Gastric Bypass -: Panniculectomy Psychosocial/ Personal History: Lives at home, , recently with home health aide, unable to ambulate 2nd to damage from Chemo - Family History Father Medical History: Heart disease, Hypertension Mother Medical History: Hypertension, Cancer Sister Medical History: Hypertension - Social History Smoking Status: Never smoker, Unknown if ever smoked Alcohol use: No CD- Drugs: No Caffeine use: No Place of Residence: Home Review of Systems 10-point ROS is otherwise unremarkable Physical Examination Temp Pulse Resp BP Pulse Ox 96.3 F L 92 H 14 120/57 L 93 03/21/24 16:00 03/21/24 16:00 03/21/24 16:00 03/21/24 16:00 03/21/24 16:00 General: Alert, In no apparent distress HEENT: Atraumatic, PERRLA, Mucous membr. moist/pink, EOMI, Sclerae nonicteric Neck: Supple, 2+ carotid pulse no bruit, No LAD, Without JVD or thyroid abnormality Respiratory: Clear to auscultation bilaterally, Normal air movement Cardiovascular: Regular rate/rhythm, Normal S1 S2 Gastrointestinal: Normal bowel sounds, No tenderness Musculoskeletal: No tenderness Integumentary: No rashes Neurological: Normal gait, Normal speech, Normal tone, Normal affect Lymphatics: No axilla or inguinal lymphadenopathy - Problems (1) Atrial fibrillation Current Visit: Yes Status: Acute Plan: Patient was in A-fib with RVR. Patient was started on sotalol 80 mg p.o. twice daily Get EKG after the third dose Continue nifedipine 30 mg daily Patient is on Lovenox therapeutic dose, plan is to switch to Eliquis 5 mg p.o. twice daily at discharge. (2) Swelling of lower extremity Current Visit: Yes Status: Acute Plan: Patient recent echo shows normal ejection fraction, IVC was not visualized. Would advised to increase Lasix to 40 mg IV twice daily Monitor input and outputs Monitor electrolytes. (3) HTN (hypertension) Current Visit: Yes Status: Acute Plan: Patient blood pressure is within normal limits continue to monitor.
[2024-03-21] MEDS ORDERED: METOPROLOL TAR 50 MG TAB PO SCH (18:00)
[2024-03-21] MEDS ORDERED: METOPROLOL TAR 25 MG TAB PO SCH (18:00)
[2024-03-21] MEDS ORDERED: VANCOMYCIN 1.5 GM in NA CHLORIDE 0.9% 500 ML IVPB SCH (20:00)
[2024-03-21] MEDS: FUROSEMIDE 40 MG/4 ML VIAL IV SCH (20:41)
[2024-03-21] MEDS: ROPINIROLE HCL 0.25 MG TAB PO SCH (20:42)
[2024-03-21] MEDS: VITAMIN D 5,000 UNIT CAP PO SCH (20:42)
[2024-03-21] MEDS: HYDROCODONE/APAP 5/325 MG TAB PO PRN (20:43)
[2024-03-21] MEDS: AMITRIPTYLINE 25 MG TAB PO SCH (20:54)
[2024-03-21] MEDS ORDERED: AMITRIPTYLINE 25 MG TAB PO SCH (21:00)
[2024-03-21] MEDS ORDERED: HOME MED 1 EA UNK (Ropinirole Hcl [Requip] 3 MG Tablet) PO SCH (21:00)
[2024-03-22 03:56] LABS: Absolute Lymphocytes (CBC) 1.5 K/uL (0.7-4.9); Absolute Monocytes 0.4 K/uL (0.1-1.3); Absolute Neutrophil 2.7 K/uL (1.8-8.0); Basophils % 0.1 % (0-1.3); Eosinophils % 0.5 % (0-4.4); Hematocrit 25.2 % (36.0-45.0); Hemoglobin 8.6 g/dL (12.0-15.0); MCH 32.1 pg (27.0-35.0); MCV 94.5 fL (80-100); MPV 10.6 fL (7.6-11.3); Monocytes % 9.1 % (3.3-12.3); Nucleated Red Blood Cells % 0.3 % (0-0); Platelets 133 thou/uL (152-406); RBC Red Blood Cell Count 2.67 M/uL (3.86-4.86); Red Cell Distribution Width 14.5 % (12.1-15.2)
[2024-03-22 03:59] LABS: Neutrophils % 58.3 % (41.7-73.7)
[2024-03-22 04:14] LABS: Albumin 1.3 g/dL (3.4-5.0); Albumin/Globulin Ratio 0.4 (1.1-1.8); Anion Gap 8.2 mEq/L (5.0-15.0); Bilirubin Total 0.6 mg/dL (0.2-1.0); Globulin 3.5 g/dL (2.3-3.5); Magnesium 1.6 mg/dL (1.6-2.4); Phosphorus 2.6 mg/dL (2.5-4.9); Potassium 3.2 mEq/L (3.5-5.1); Protein, Total 4.8 g/dL (6.4-8.2)
[2024-03-22] MEDS: LEVOTHYROXINE SOD 0.1 MG TAB PO SCH (05:06)
[2024-03-22] MEDS: POTASSIUM CL SA 10 MEQ TAB PO ONE ×2 (05:07→18:38)
[2024-03-22] MEDS: MAGNESIUM SULFATE 1 gm IVPB 1 GM/100 ML BAG IV ONE (05:07)
[2024-03-22] MEDS: NIFEDIPINE XL 30 MG TABLET PO SCH (08:49)
[2024-03-22] MEDS ORDERED: PROMETHAZINE INJ 25 MG/ML AMP IV PRN (09:10)
--- NOTE | 2024-03-22 10:40 | P.PN ---
Subjective Date of Service: 03/22/24 Primary Care Provider: Susan Chief Complaint: sepsis, diabetic wound left foot Subjective: No new changes (patient has been in sinus rhythm overnight.), No C/O voiced, Tolerating diet, Ambulating, Improving Review of Systems 10-point ROS is otherwise unremarkable Physical Examination - Vital Signs Temperature: 97.0 F Blood Pressure: 125/54 Pulse: 87 Respirations: 18 Pulse Ox (%): 93 - Physical Exam General: Alert, In no apparent distress HEENT: Atraumatic, PERRLA, EOMI Neck: Supple, JVD not distended Respiratory: Clear to auscultation bilaterally, Normal air movement Cardiovascular: Regular rate/rhythm, Normal S1 S2, Edema Gastrointestinal: Normal bowel sounds, No tenderness Musculoskeletal: No tenderness Integumentary: No rashes Neurological: Normal speech, Normal tone, Normal affect Lymphatics: No axilla or inguinal lymphadenopathy - Studies Microbiology Data (last 24 hrs): 03/19/24 15:30 Wound - Left Heel Gram Stain - Final 03/19/24 15:30 Wound - Left Heel Culture & Sensitivity - Final Meth Resistant Staph Aureus Medications List Reviewed: Yes Assessment And Plan - Current Problems (Diagnosis) (1) Atrial fibrillation Current Visit: Yes Status: Acute Plan: Patient was in A-fib with RVR. Patient was started on sotalol 80 mg p.o. twice daily Get EKG after the third dose Continue nifedipine 30 mg daily Patient is on Lovenox therapeutic dose, plan is to switch to Eliquis 5 mg p.o. twice daily at discharge. (2) Swelling of lower extremity Current Visit: Yes Status: Acute Plan: Patient recent echo shows normal ejection fraction, IVC was not visualized. Continue Lasix 40 mg IV twice daily, may switch to 40 mg po daily on discharge Monitor input and outputs Monitor electrolytes. (3) HTN (hypertension) Current Visit: Yes Status: Acute Plan: Patient blood pressure is within normal limits continue to monitor. continue Nifedipine.
--- NOTE | 2024-03-22 12:29 | P.PN ---
Subjective Date of Service: 03/22/24 Primary Care Provider: Susan Chief Complaint: sepsis, diabetic wound left foot Subjective: Improving (awaiting third dose of Sotalol for Qtc eval) <ParsonsTori Espinoza - Last Filed: 03/22/24 12:22> Date of Service: 03/22/24 <Allan Ellington Kourtney - Last Filed: 03/22/24 17:42> Review of Systems 10-point ROS is otherwise unremarkable General: As per HPI Cardiovascular: As per HPI Integumentary: As per HPI <Tori Parsons - Last Filed: 03/22/24 12:22> Physical Examination - Vital Signs Temperature: 97.1 F Blood Pressure: 103/47 Pulse: 79 Respirations: 20 Pulse Ox (%): 99 - Physical Exam General: Alert, In no apparent distress, Oriented x3 HEENT: Atraumatic, Normocephalic Neck: Supple Respiratory: Normal air movement Cardiovascular: Regular rate/rhythm, Normal S1 S2, Other (81bpm, Awaiting third dose of Sotalol) Capillary refill: <2 Seconds Gastrointestinal: Soft and benign Musculoskeletal: No clubbing, Other (left post op foot, no c/o, PT in room with exercise) Integumentary: Other (post surgical left heel, pallor, some ecchymosis to left miramontes, bilateral hands with nondraining wounds/redness) Neurological: Normal speech, Normal affect Lymphatics: No axilla or inguinal lymphadenopathy Urinary: South catheter External genitalia: Deferred Rectal: Deferred - Studies Microbiology Data (last 24 hrs): 03/19/24 15:30 Wound - Left Heel Gram Stain - Final 03/19/24 15:30 Wound - Left Heel Culture & Sensitivity - Final Meth Resistant Staph Aureus Medications List Reviewed: Yes <Tori Parsons - Last Filed: 03/22/24 12:22> Assessment And Plan - Plan A/P: Paroxysmal a. fib with RVR (new for pt). Continue lower dose nifedipine. 03/21/24 Start Sotalol 80mg po BID, EKG post third dose Pancreatic cancer stage 3a: Currently on chemotherapy. She sees Dr. Davis. Supposed to have Chemo tx - 03/22 held Left foot diabetic wound: Will continue iv Vanc and cefepime, f/u wound cx and continue wound care. 03/22 post op, will check sensitivities Elevated D-dimer: D-dimer is 1834. CTA chest is negative for PE. Lovenox 90 mg/kg sc BID since 03/20 at present, will switch to Eliquis on dc Elevated BNP: BNP is 5053. Will f/u Echo given that is she is on chemotherapy. Monitor volume status and BP. 03/20/24 ECHO in progress. 03/22 Dr. Baldwin following 03/20/24 A. fib onset - Dig x 2 overnight, repeat 12 Lead today. paroxysmal a. fib with RVR. Right pleural effusion: Per CTA chest. Will monitor resp status. Nebs, pulmonary toilet DM II: Continue accuchek, SSI and ADA diet Htn: Continue home meds Thyroid dz: Will check TSH. DVT ppx: SCD/lovenox 03/20/24 Generalized weakness: pt and family request PT consult Code: full <Tori Parsons - Last Filed: 03/22/24 12:22> - Plan Pt seen and examined. I agree with the note by the CASH REGISTER OPERATOR. Continue sotalol for A. Fib. cardiology is following. POD #1 after Gen surgeon did wound debridement. Continue iv vanc and cefepime <Allan Ellington - Last Filed: 03/22/24 17:42>
[2024-03-22] MEDS: POTASSIUM 25 MEQ EFFERV TAB PO ONE (16:00)
[2024-03-22] MEDS: ROPINIROLE HCL 1 MG TAB PO SCH (17:18)
--- NOTE | 2024-03-22 19:36 | P.DS ---
Admission Date: 03/19/24 Discharge Date: 03/23/24 Primary Care Provider: Susan Reason for Admission: sepsis, diabetic wound left foot Consultations: Dr. Nicolasa George Procedures: Sotalol initiation with medication induced cardioversion Left heel wound debridement Brief History of Present Illness: Pt is a 74 yo female with past medical history of Stage 3a pancreatic cancer, DM II, Htn, and thyroid disease who presents with SOB and palpitation. Her daughter reports that pt felt lightheaded while trying to get on the wheelchair. She felt weak and was unable to accomplish the task. This made her come to the ER for evaluation. On admission, lab studies show wbc 10.2, Hgb 10.1, K 3.5, Cr 0.99, D-dimer 1834, lactate 2.6 and BNP 5038. CXR has left pleural effusion. At bedside, pt is in NAD. Hospital Course: Ms. Pickens did well over the course of her hospitalization. The morning after admission she had paroxysmal atrial fibrillation with rapid ventricular response. Cardiology was consulted, patient was placed on full dose Lovenox twice daily. Dr. George did a debridement of the left heel diabetic wound. She has been receiving broad-spectrum antibiotics, vancomycin and Maxipime, electrolyte replacement, Lasix 40 mg IV twice daily and sotalol was initiated at 80 mg p.o. twice daily. She converted to normal sinus rhythm at a rate of 80 after the first dose. Her EKG will be evaluated for QTc length after the third dose. She will continue nifedipine 30 mg p.o. daily, sotalol 80 mg p.o. twice daily, Lasix 40 mg p.o. daily, and will begin Eliquis 5 mg p.o. twice daily at discharge. She needs follow-up with Dr. Davis (oncology), Dr. George (general surgery) and Dr. Baldwin (Cardiology) <Tori Parsons - Last Filed: 03/23/24 07:40> Admission Date: 03/19/24 Discharge Date: 04/02/24 Hospital Course: Pt seen and examined. I agree with the note by the CURTAIN INSPECTOR. Continue home meds as prescribed. Ok to discharge pt. <Allan Ellington - Last Filed: 04/02/24 22:08> Disposition: TRANSFER TO [facility] Discharge Condition: GOOD Vital Signs/Physical Exam: Temp Pulse Resp BP Pulse Ox 97.0 F 78 18 103/45 L 95 03/22/24 16:00 03/22/24 16:00 03/22/24 16:00 03/22/24 16:00 03/22/24 16:00 Laboratory Data at Discharge: WBC 4.60 thou/uL (4.3-10.9) 03/22/24 03:29 Hgb 8.6 g/dL (12.0-15.0) L 03/22/24 03:29 Hct 25.2 % (36.0-45.0) L 03/22/24 03:29 Plt Count 133 thou/uL (152-406) L 03/22/24 03:29 PT 19.1 SECONDS (9.5-12.5) H 03/19/24 14:04 INR 1.77 03/19/24 14:04 Sodium 139 mEq/L (136-145) D 03/22/24 03:29 Potassium 3.3 mEq/L (3.5-5.1) L 03/22/24 12:07 BUN 15 mg/dL (7-18) 03/22/24 03:29 Creatinine 1.07 mg/dL (0.55-1.02) H 03/22/24 03:29 Glucose 134 mg/dL (74-106) H 03/22/24 03:29 Phosphorus 2.6 mg/dL (2.5-4.9) 03/22/24 03:29 Magnesium 1.6 mg/dL (1.6-2.4) 03/22/24 03:29 Total Bilirubin 0.6 mg/dL (0.2-1.0) 03/22/24 03:29 AST 92 U/L (15-37) H 03/22/24 03:29 ALT 38 U/L (13-56) 03/22/24 03:29 Alkaline Phosphatase 87 U/L (45-117) 03/22/24 03:29 Triglycerides 132 mg/dL (<150) 03/20/24 08:15 Cholesterol 87 mg/dL (<200) 03/20/24 08:15 HDL Cholesterol 27 mg/dL (40-60) L 03/20/24 08:15 Cholesterol/HDL Ratio 3.22 03/20/24 08:15 <Parsons,Tori Alexis - Last Filed: 03/23/24 07:40> Vital Signs/Physical Exam: Temp Pulse Resp BP Pulse Ox 97.3 F 77 19 119/62 98 04/01/24 20:00 04/01/24 20:00 04/01/24 20:00 04/01/24 20:00 04/01/24 20:00 Laboratory Data at Discharge: WBC 12.40 thou/uL (4.3-10.9) H 04/01/24 06:03 Hgb 10.9 g/dL (12.0-15.0) L 04/01/24 06:03 Hct 32.2 % (36.0-45.0) L 04/01/24 06:03 Plt Count 164 thou/uL (152-406) 04/01/24 06:03 PT 21.9 SECONDS (9.5-12.5) H 03/26/24 07:10 INR 2.03 03/26/24 07:10 APTT 42.2 SECONDS (24.3-36.9) H 03/26/24 07:10 Sodium 139 mEq/L (136-145) 04/01/24 06:03 Potassium 3.6 mEq/L (3.5-5.1) 04/01/24 06:03 BUN 22 mg/dL (7-18) H 04/01/24 06:03 Creatinine 0.83 mg/dL (0.55-1.02) 04/01/24 06:03 Glucose 148 mg/dL (74-106) H 04/01/24 06:03 Phosphorus 2.6 mg/dL (2.5-4.9) 03/22/24 03:29 Magnesium 2.0 mg/dL (1.6-2.4) 04/01/24 06:03 Total Bilirubin 7.4 mg/dL (0.2-1.0) H 04/01/24 18:20 AST 254 U/L (15-37) H 04/01/24 18:20 ALT 71 U/L (13-56) H 04/01/24 18:20 Alkaline Phosphatase 498 U/L (45-117) H 04/01/24 18:20 Triglycerides 132 mg/dL (<150) 03/20/24 08:15 Cholesterol 87 mg/dL (<200) 03/20/24 08:15 HDL Cholesterol 27 mg/dL (40-60) L 03/20/24 08:15 Cholesterol/HDL Ratio 3.22 03/20/24 08:15 <Allan Ellington - Last Filed: 04/02/24 22:08> Diet: ADA Activity: Fall precautions <Parsons,Tori Alexis - Last Filed: 03/23/24 07:40> <Allan Ellington - Last Filed: 04/02/24 22:08> Home Medications: Cyclobenzaprine [Flexeril*] 1 tab PO TID PRN 01/22/21 Dapagliflozin Propanediol [Farxiga] 1 tab PO DAILY 01/22/21 Famotidine [Pepcid] 4 tab PO BEDTIME 01/22/21 Lortab 7.5 Mg 1 tab PO TID PRN 01/22/21 Milnacipran HCl [Savella] 1 tab PO BID 6AM 6PM 01/22/21 Nifedipine [Procardia Xl] 1 tab PO DAILY 01/22/21 Amitriptyline [Elavil*] 75 mg PO BEDTIME 04/04/23 Cholecalciferol (Vitamin D3) [Vitamin D 5,000 IU Cap*] 1 cap PO BEDTIME 04/04/23 Docusate Sodium 100 mg PO BID 04/04/23 Insulin Degludec [Tresiba] 16 unit SQ DAILY 04/04/23 Levothyroxine [Synthroid] 0.3 mg PO [id number] 04/04/23 Meclizine HCl 25 mg PO PRN PRN 04/04/23 Pioglitazone HCl [Actos] 15 mg PO PRN PRN 04/04/23 Docusate Sodium [Stool Softener] 50 mg PO BID* 03/20/24 Hydrocodone 5/APAP 325 [[place] 5/325] 1 tab PO Q6H PRN 03/20/24 Pantoprazole Sodium [Protonix] 40 mg PO BID* 03/20/24 Prochlorperazine Maleate [Compazine] 10 mg PO DAILYPRN PRN 03/20/24 Sennosides [Senokot] 8.6 mg PO BID* 03/20/24 Ropinirole HCl [Requip] 1 mg PO TID 03/22/24 Physician Discharge Instructions: 74 yo female with past medical history of Stage 3a pancreatic cancer, DM II, Htn, and thyroid disease who presents with SOB and palpitation. Her daughter reports that pt felt lightheaded while trying to get on the wheelchair. She felt weak and was unable to accomplish the task. Admitted for generalized weakness, report has declined in [facility] facility, family wants patient to discharge home, patient is max assist, manager social services to [facility] for discharge planning prior to discharge. History of pancreatic cancer stage III on chemotherapy, left diabetic foot wound, IV vancomycin and cefepime-on po abx after completed course, WBCs trended down to normal while inpatient plan to transition to [facility] facility after discharge, however, total bilirubin elevated; fractionation pending; transfer to for evaluation of her stents Assessment -New onset A-fib RVR, started on sotalol, eliquis; converted to sinus rhythm after medication initiation -Pancreatic cancer stage 3a: Currently on chemotherapy. She sees Dr. Davis. -Left foot diabetic wound: on oral antibiotics (Cx positive for MRSA) -Leukocytosis improving on doxycy added, WBCs trended down to normal while inpatient -Congestive heart failure, elevated BNP 5053-gentle diuresis, monitoring volume status Continue home medicines as previously prescribed GOAL: Clear understanding of disease process INSTRUCTIONS: Physician Discharge Instructions: -Please call Dr. Okeefe, hospitalist, at [phone] if any questions regarding hospital stay -Please call nursing station at [phone] if any nursing or medication questions -Arranged to go to [facility], in [place], [place] at discharge Diet: NPO Activity: Fall precautions Followup: Ramiro Coe MD [ACTIVE - CAN ADMIT] - Alla Davis MD [ACTIVE - CAN ADMIT] - Orlin George MD [ACTIVE - CAN ADMIT] - Rolo Baldwin MD [ACTIVE - CAN ADMIT] -
[2024-03-23 03:53] LABS: Absolute Lymphocytes (CBC) 2.5 K/uL (0.7-4.9); Absolute Monocytes 0.9 K/uL (0.1-1.3); Absolute Neutrophil 3.8 K/uL (1.8-8.0); Basophils % 0.2 % (0-1.3); Eosinophils % 0.5 % (0-4.4); Hematocrit 25.5 % (36.0-45.0); Hemoglobin 8.6 g/dL (12.0-15.0); Lymphocytes % 35.1 % (15.3-44.8); MCH 31.8 pg (27.0-35.0); MCHC 33.8 g/dL (32.0-36.0); MCV 93.9 fL (80-100); MPV 10.4 fL (7.6-11.3); Neutrophils % 52.2 % (41.7-73.7); Nucleated Red Blood Cells % 0.3 % (0-0); Platelets 108 thou/uL (152-406); RBC Red Blood Cell Count 2.71 M/uL (3.86-4.86); Red Cell Distribution Width 14.5 % (12.1-15.2)
[2024-03-23 04:08] LABS: Anion Gap 6.1 mEq/L (5.0-15.0); Magnesium 1.5 mg/dL (1.6-2.4); Potassium 3.1 mEq/L (3.5-5.1)
[2024-03-23 05:05] LABS: Band Neutrophils 8 % (0-1); Blood Morphology Comment NOT SEEN (NOT SEEN); Differential Total Cells Count 100; Eosinophils 1 % (0-3); Lymphocytes 31 % (15-42); Monocytes 10 % (0-10); Nucleated Red Blood Cells 2 /100WBC; Platelet Estimate ADEQ; Reactive Lymphocytes 2 %; Segmented Neutrophils 48 % (40-80)
[2024-03-23] MEDS: POTASSIUM CL SA 10 MEQ TAB PO ONE (06:10)
[2024-03-23] MEDS: NIFEDIPINE XL 30 MG TABLET PO SCH (07:59)
[2024-03-23] MEDS: Magnesium Sulfate 2gm IVPB 2 G/50 ML BAG IV ONE (08:01)
--- NOTE | 2024-03-23 12:53 | P.PN ---
Subjective Date of Service: 03/23/24 Primary Care Provider: Susan Chief Complaint: sepsis, diabetic wound left foot Subjective: No new changes, No C/O voiced, Tolerating diet, Ambulating, Improving Review of Systems 10-point ROS is otherwise unremarkable Physical Examination - Vital Signs Temperature: 97.6 F Blood Pressure: 112/52 Pulse: 69 Respirations: 18 Pulse Ox (%): 94 - Physical Exam General: Alert, In no apparent distress HEENT: Atraumatic, PERRLA, EOMI Neck: Supple, JVD not distended Respiratory: Clear to auscultation bilaterally, Normal air movement Cardiovascular: Regular rate/rhythm, Normal S1 S2, Edema Gastrointestinal: Normal bowel sounds, No tenderness Musculoskeletal: No tenderness Integumentary: No rashes Neurological: Normal speech, Normal tone, Normal affect Lymphatics: No axilla or inguinal lymphadenopathy - Studies Medications List Reviewed: Yes Assessment And Plan - Current Problems (Diagnosis) (1) Atrial fibrillation Current Visit: Yes Status: Acute Plan: Patient was in A-fib with RVR. Patient was started on sotalol 80 mg p.o. twice daily EKG shows normal QTc Continue nifedipine 30 mg daily Patient is on Lovenox therapeutic dose, plan is to switch to Eliquis 5 mg p.o. twice daily at discharge. (2) Swelling of lower extremity Current Visit: Yes Status: Acute Plan: Patient recent echo shows normal ejection fraction, IVC was not visualized. Continue Lasix 40 mg IV twice daily, may switch to 40 mg po daily on discharge Monitor input and outputs Monitor electrolytes. (3) HTN (hypertension) Current Visit: Yes Status: Acute Plan: Patient blood pressure is within normal limits continue to monitor. continue Nifedipine. cardiology will sign off, please call with any questions.
[2024-03-23] MEDS: SOTALOL HCL 80 MG TAB PO SCH (17:18)
[2024-03-23] MEDS ORDERED: VANCOMYCIN 1.75 GM in NA CHLORIDE 0.9% 500 ML IVPB SCH (18:00)
--- NOTE | 2024-03-23 18:05 | P.PN ---
Subjective Date of Service: 03/23/24 Primary Care Provider: Susan Chief Complaint: sepsis, diabetic wound left foot severe weakness <Tori Parsonslen - Last Filed: 03/23/24 17:54> Date of Service: 03/23/24 <Allan Ellington Kourtney - Last Filed: 03/23/24 18:24> Review of Systems 10-point ROS is otherwise unremarkable General: Weakness Integumentary: Other (pallor) Neurological: Weakness <Alecia Parsonsjerman Espinoza - Last Filed: 03/23/24 17:54> Physical Examination - Vital Signs Temperature: 98.5 F Blood Pressure: 123/55 Pulse: 73 Respirations: 18 Pulse Ox (%): 94 - Physical Exam General: Alert, Oriented x3, Other (fatigued) HEENT: Atraumatic, Normocephalic Neck: Supple Respiratory: Normal air movement Cardiovascular: Normal pulses, Regular rate/rhythm Capillary refill: <2 Seconds Gastrointestinal: Soft and benign Musculoskeletal: No clubbing Integumentary: No rashes, Other (pallor) Neurological: Normal speech, Normal affect Lymphatics: No axilla or inguinal lymphadenopathy External genitalia: Deferred Rectal: Deferred - Studies Medications List Reviewed: Yes <Tori Parsonslen - Last Filed: 03/23/24 17:54> Assessment And Plan - Plan A/P: Paroxysmal a. fib with RVR (new for pt). Continue lower dose nifedipine. 03/21/24 Start Sotalol 80mg po BID, EKG post third dose 03/22 converted to NSR Pancreatic cancer stage 3a: Currently on chemotherapy. She sees Dr. Davis. Supposed to have Chemo tx - 03/22 held - pt will be discharged to home Left foot diabetic wound: Will continue iv Vanc and cefepime, f/u wound cx and continue wound care. 03/22 post op, will check sensitivities 03/23 vanc and rocephin set up for home - Cancelled, will cleanse with santyl and elevate Elevated D-dimer: D-dimer is 1834. CTA chest is negative for PE. Lovenox 90 mg/kg sc BID since 03/20 at present, will switch to Eliquis on dc Elevated BNP: BNP is 5053. Will f/u Echo given that is she is on chemotherapy. Monitor volume status and BP. 03/20/24 ECHO in progress. 03/22 Dr. Baldwin following 03/20/24 A. fib onset - Dig x 2 overnight, repeat 12 Lead today. paroxysmal a. fib with RVR. 03/23 NSR Right pleural effusion: Per CTA chest. Will monitor resp status. Nebs, pulmonary toilet DM II: Continue accuchek, SSI and ADA diet Htn: Continue home meds Thyroid dz: Will check TSH. DVT ppx: SCD/lovenox 03/20/24 Generalized weakness: pt and family request PT consult, unable to participate much 2nd to weakness. 03/23/24 Declines SNF. Pt states she wants to go home. Daughter at bedside. Plan for home health. Daughter uncomfortable with discharge today. Hospital bed and [facility] orders sent for home health. Code: full <Tori Parsons - Last Filed: 03/23/24 17:54> - Plan Pt seen and examined. I agree with the note by the FISH FARMER. Continue sotalol for A. Fib. cardiology is following. POD #2 after Gen surgeon did wound debridement. Continue iv vanc and cefepime. Will dc pt tomorrow. <Allan Ellington - Last Filed: 03/23/24 18:24>
[2024-03-23] MEDS: CEFTRIAXONE 1,000 MG in NA CHLORIDE 0.9% 50 ML IVPB SCH (21:27)
[2024-03-24] MEDS: BISACODYL 10 MG RECTAL SUPP PR ONE (02:19)
[2024-03-24 05:51] LABS: Anion Gap 6.2 mEq/L (5.0-15.0); Potassium 3.2 mEq/L (3.5-5.1)
[2024-03-24] MEDS: FUROSEMIDE 40 MG TABLET PO SCH (08:55)
[2024-03-24] MEDS: POTASSIUM CL SA 10 MEQ TAB PO ONE ×2 (08:57→16:54)
[2024-03-24] MEDS: LACTULOSE 20 GM/30 ML UCUP PO ONE (08:57)
[2024-03-24] MEDS ORDERED: CEFTRIAXONE 1,000 MG in NA CHLORIDE 0.9% 50 ML IVPB SCH (09:00)
--- NOTE | 2024-03-24 09:18 | P.PN ---
Subjective Date of Service: 03/24/24 Primary Care Provider: Susan Chief Complaint: sepsis, diabetic wound left foot severe weakness from the past few days improving, able to move legs more freely. Awaiting hospital bed and leonard for home. Has Midline for Vanc and Rocephin. Vanc level elevated and stopped completely. Will continue Rocephin 1 gm daily for UTI <Tori Parsons - Last Filed: 03/24/24 09:14> Date of Service: 03/24/24 <Allan Ellington - Last Filed: 03/24/24 09:38> Review of Systems 10-point ROS is otherwise unremarkable Gastrointestinal: Other (c/o constipation) Musculoskeletal: As per HPI <Tori Parsons - Last Filed: 03/24/24 09:14> Physical Examination - Vital Signs Temperature: 96.9 F Blood Pressure: 121/50 Pulse: 88 Respirations: 17 Pulse Ox (%): 94 - Physical Exam General: Alert, In no apparent distress, Oriented x3 HEENT: Atraumatic, Normocephalic Neck: Supple Respiratory: Clear to auscultation bilaterally Cardiovascular: No edema, Normal pulses, Regular rate/rhythm Capillary refill: <2 Seconds Gastrointestinal: Soft and benign Musculoskeletal: No clubbing Integumentary: Other (pallor, left heel wound (wrapped) and elevated) Neurological: Normal speech, Normal tone, Normal affect Lymphatics: No axilla or inguinal lymphadenopathy Urinary: South catheter External genitalia: Deferred Rectal: Deferred - Studies Medications List Reviewed: Yes <Tori Parsons - Last Filed: 03/24/24 09:14> Assessment And Plan - Plan A/P: Paroxysmal a. fib with RVR (new for pt). Continue lower dose nifedipine. 03/21/24 Start Sotalol 80mg po BID, EKG post third dose 03/22 converted to NSR Pancreatic cancer stage 3a: Currently on chemotherapy. She sees Dr. Davis. Supposed to have Chemo tx - 03/22 held - pt will be discharged to home Left foot diabetic wound: Will continue iv Vanc and cefepime, f/u wound cx and continue wound care. 03/22 post op, will check sensitivities /7 vanc and rocephin set up for home - Cancelled, will cleanse with santyl and elevate. Midline placed so will go ahead and continue Rocephin 1 gm IVPB daily Elevated D-dimer: D-dimer is 1834. CTA chest is negative for PE. Lovenox 90 mg/kg sc BID since 03/20 at present, will switch to Eliquis on dc Elevated BNP: BNP is 5053. Will f/u Echo given that is she is on chemotherapy. Monitor volume status and BP. 03/20/24 ECHO in progress. 03/22 Dr. Baldwin following 03/20/24 A. fib onset - Dig x 2 overnight, repeat 12 Lead today. paroxysmal a. fib with RVR. 03/23 NSR 03/24 NSR Right pleural effusion: Per CTA chest. Will monitor resp status. Nebs, pulmonary toilet DM II: Continue accuchek, SSI and ADA diet Htn: Continue home meds Thyroid dz: Will check TSH. DVT ppx: SCD/lovenox 03/20/24 Generalized weakness: pt and family request PT consult, unable to participate much 2nd to weakness. 03/23/24 Declines SNF. Pt states she wants to go home. Daughter at bedside. Plan for home health. Daughter uncomfortable with discharge today. Hospital bed and [facility] orders sent for home health. Code: full <Tori Parsons - Last Filed: 03/24/24 09:14> - Plan Pt seen and examined. I agree with the note by the BRANCH MANAGER. Continue sotalol for A. Fib. cardiology is following. POD #3 after Gen surgeon did wound debridement. Continue iv vanc and cefepime. Waiting for delivery of hospital bed and leonard. Pt declined SNF placement. She wants to go home. <Allan Ellington - Last Filed: 03/24/24 09:38>
--- NOTE | 2024-03-24 11:51 | EKG ---
Test Date: 2024-03-21 Test Time: 16:59:22 Tarper: EARLENE MEASUREMENT RESULTS: Intervals: Rate: 83 [place]: 182 QRSD: 98 QT: 340 QTc: 399 [place]: P: 60 [place]: 182 QRS: 86 T: -53 INTERPRETIVE STATEMENTS: Normal sinus rhythm Nonspecific T wave abnormality Abnormal ECG Compared to ECG 03/20/2024 10:22:29 T-wave abnormality now present Atrial fibrillation no longer present Myocardial infarct finding no longer present ST (T wave) deviation no longer present Possible ischemia no longer present Electronically Signed On 03-24-24 11:48:57 CDT by Rolo Baldwin
[2024-03-24] MEDS: SENOSIDES 8.6 MG TAB PO SCH (13:08)
[2024-03-24] MEDS: CYCLOBENZAPRINE 10 MG TAB PO PRN (17:25)
[2024-03-24] MEDS: HYDROCORTISONE 2.5% RECT CR PR SCH (20:02)
[2024-03-24] MEDS: APIXABAN 5 MG TABLET PO SCH (20:07)
[2024-03-24] MEDS: DOCUSATE NA 100 MG CAP PO SCH (20:10)
[2024-03-24 23:14] LABS: Absolute Basophils 0.1 K/uL (0-0.5); Absolute Eosinophils 0.2 K/uL (0-0.5); Absolute Lymphocytes (CBC) 3.2 K/uL (0.7-4.9); Absolute Monocytes 2.1 K/uL (0.1-1.3); Absolute Neutrophil 9.7 K/uL (1.8-8.0); Basophils % 0.7 % (0-1.3); Eosinophils % 1.1 % (0-4.4); Hematocrit 27.3 % (36.0-45.0); Hemoglobin 9.2 g/dL (12.0-15.0); Lymphocytes % 20.9 % (15.3-44.8); MCH 31.6 pg (27.0-35.0); MCHC 33.7 g/dL (32.0-36.0); MCV 93.8 fL (80-100); MPV 9.8 fL (7.6-11.3); Monocytes % 13.9 % (3.3-12.3); Neutrophils % 63.4 % (41.7-73.7); Platelets 161 thou/uL (152-406); Red Cell Distribution Width 14.6 % (12.1-15.2)
[2024-03-24 23:32] LABS: Anion Gap 8.7 mEq/L (5.0-15.0)
[2024-03-24 23:48] LABS: Band Neutrophils 4 % (0-1); Blood Morphology Comment NOT SEEN (NOT SEEN); Differential Total Cells Count 100; Lymphocytes 15 % (15-42); Metamyelocytes 1 % (0-0); Monocytes 10 % (0-10); Platelet Estimate ADEQ; Segmented Neutrophils 70 % (40-80)
[2024-03-24 23:53] LABS: Potassium 3.7 mEq/L (3.5-5.1)
[2024-03-25] MEDS ORDERED: MORPHINE 2 MG/ML SYR IV ONE (00:23)
[2024-03-25] MEDS: PHENAZOPYRIDINE 100MG TAB PO ONE (00:51)
[2024-03-25] MEDS: MORPHINE 4 MG/ML SYR IV ONE (00:52)
[2024-03-25] MEDS ORDERED: SODIUM CHLORIDE 0.9% 10ML INJ IV PRN (08:27)
--- NOTE | 2024-03-25 08:34 | P.PN ---
Subjective Date of Service: 03/25/24 Primary Care Provider: Susan Chief Complaint: sepsis, diabetic wound left foot Subjective: Worsening (discussed comfort care with Daughter, she was unable to think about it at this time) severe weakness from the past few days improving, able to move legs more freely. Awaiting hospital bed and leonard for home. Has Midline for Vanc and Rocephin. Vanc level elevated and stopped completely. Will continue Rocephin 1 gm daily for UTI - 03/25 had a very difficult/painful night. + BM with hemorrhoid pain, guevara was dc'd secondary to painful spasms despite medications for pain. She apparently cried out every 5 minutes with indescribable pain. Morphine 1mg x 1 given overnight and the pain paroxysms have decreased in intensity and intervals painfree have lengthened. Tried to discuss comfort care with Daughter, Yashira. Pt is groggy, pale, with unfocused gaze. <Tori Parsons - Last Filed: 03/25/24 08:29> Date of Service: 03/25/24 <Allan Ellington - Last Filed: 03/25/24 16:44> Review of Systems 10-point ROS is otherwise unremarkable General: Weakness, Malaise, Other (increased paroxysms of pain), As per HPI Eyes: Other (unfocused) Integumentary: Other (rectal pain with BM, "pain all over") Neurological: Weakness, As per HPI <Tori Parsons - Last Filed: 03/25/24 08:29> Physical Examination - Vital Signs Temperature: 97.6 F Blood Pressure: 106/51 Pulse: 99 Respirations: 15 Pulse Ox (%): 92 - Physical Exam General: Mild distress HEENT: Other (unfocused gaze) Neck: Supple Respiratory: Clear to auscultation bilaterally Cardiovascular: Other (tachycardic but sinus rhythm) Capillary refill: <2 Seconds Gastrointestinal: Other (soft brown stools, painful rectum with left hemorrhoid), Masses (right upper quad with bulging/full area ) Musculoskeletal: Other (left heel with dressing, mild dorsal edema ) Integumentary: Other (pallor, erythema over dosum of knuckles to bilateral hands) Neurological: Abnormal speech, Abnormal tone, Abnormal affect Lymphatics: No axilla or inguinal lymphadenopathy Urinary: Other (guevara dc'd overnight) Rectal: Tenderness (left hemorrhoids) - Studies Microbiology Data (last 24 hrs): 03/19/24 15:40 Blood - Blood Aerobic Blood Culture - Final No growth in 5 days. 03/19/24 15:40 Blood - Blood Anaerobic Blood Culture - Final No growth in 5 days. 03/19/24 15:28 Blood - Blood Aerobic Blood Culture - Final No growth in 5 days. 03/19/24 15:28 Blood - Blood Anaerobic Blood Culture - Final No growth in 5 days. Medications List Reviewed: Yes <Tori Parsons Alexis - Last Filed: 03/25/24 08:29> - Studies Microbiology Data (last 24 hrs): 03/19/24 15:40 Blood - Blood Aerobic Blood Culture - Final No growth in 5 days. 03/19/24 15:40 Blood - Blood Anaerobic Blood Culture - Final No growth in 5 days. 03/19/24 15:28 Blood - Blood Aerobic Blood Culture - Final No growth in 5 days. 03/19/24 15:28 Blood - Blood Anaerobic Blood Culture - Final No growth in 5 days. <Allan Ellington - Last Filed: 03/25/24 16:44> Assessment And Plan - Plan A/P: Paroxysmal a. fib with RVR (new for pt). Continue lower dose nifedipine. 03/21/24 Start Sotalol 80mg po BID, EKG post third dose 03/22 converted to NSR 03/25 Sinus tach, pt with some hypotension Pancreatic cancer stage 3a: Currently on chemotherapy. She sees Dr. Davis. Supposed to have Chemo tx - 03/22 held Left foot diabetic wound: Will continue iv Vanc and cefepime, f/u wound cx and continue wound care. 03/22 post op, will check sensitivities 03/23 vanc and rocephin set up for home - Cancelled, will cleanse with santyl and elevate per Dr George wound care directions. Midline placed so will go ahead and continue Rocephin 1 gm IVPB daily, 03/25 WBC up significantly today, will switch to Cefepime 1gm IVPB BID Elevated D-dimer: D-dimer is 1834. CTA chest is negative for PE. Lovenox 90 mg/kg sc BID since 03/20 at present, 03/23 switched to Eliquis 5mg po BID Right pleural effusion: Per CTA chest. Will monitor resp status. Nebs, pulmonary toilet DM II: Continue accuchek, SSI and ADA diet - stopped eating, clear liquid diet Htn: Continue home meds Thyroid dz: Will check TSH. DVT ppx: SCD/lovenox 03/20/24 Generalized weakness: pt and family request PT consult, unable to participate much 2nd to weakness. 03/23/24 Declines SNF. Pt states she wants to go home. Daughter at bedside. Plan for home health. Daughter uncomfortable with discharge today. Hospital bed and [facility] orders sent for home health. 03/25 pt signiciantly declined overnight. Tried to speak with Daughter about making pt comfortable as her pressures are low but she requires more pain medications so need to hold some other medications like Nicardipine, Sotalol, lasix. Pt is pale, eyes unfocused, uncomfortable. Will continue to address comfort care with Daughter. Code: full <Tori Parsons - Last Filed: 03/25/24 08:29> - Plan PT seen and examined. I agree with the note by the DOCUMENT CONTROL ASSISTANT. Pt wants to go home. She declined SNF placement. The pillowcase cleaner ordered hospital bed and leonard for home health. Monitor BP. Continue home BP regimen as BP tolerates. <Allan Ellington - Last Filed: 03/25/24 16:44>
[2024-03-25] MEDS: MORPHINE 4 MG/ML SYR IV PRN (08:48)
[2024-03-25] MEDS: CEFEPIME 1 GM in NA CHLORIDE 0.9% 100 ML IV SCH (08:49)
[2024-03-25] MEDS: PANTOPRAZOLE 40 MG INJ IVP SCH (08:49)
[2024-03-25] MEDS: POTASSIUM CL SA 10 MEQ TAB PO ONE (08:54)
--- NOTE | 2024-03-25 16:49 | RAD REPORT ---
EXAM DESCRIPTION: CTStone Protocol - 03/25/2024 4:13 pm CLINICAL HISTORY: hx of stones, abd pain COMPARISON: Abdomen Pelvis W Contrast dated 01/20/2024; Chest Abd Pelvis Wo Con dated 03/06/2024 TECHNIQUE: CT of the abdomen and pelvis was performed. All CT scans are performed using dose optimization technique as appropriate and may include automated exposure control or mA/KV adjustment according to patient size. FINDINGS: Lower chest: Moderate right pleural effusion and probably underlying atelectasis. Trace pe ricardial effusion. Liver: Hepatic steatosis. Biliary: Cholecystectomy. Metallic common bile duct stent. 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 Duodenum: No significant focal abnormality. Pancreas: Locally aggressive pancreatic head mass not as well appreciated without IV contrast. Is mer ssly similar in size compared with 02/15/2024. Spleen: No significant abnormality. Adrenal: No suspicious lesions. Kidney/ureter: No hydronephrosis. Right nephrolithiasis. 13 millimeters stone which is nonobstructing at the left UPJ. This is unchanged. Retroperitoneum: No retroperitoneal adenopathy. Vascular: No aneurysm. Atherosclerosis . Bowel: Moderate colonic stool suggesting constipation. .. Rectal wall thickening and perirectal edema . This is similar to prior but could represent a proctitis. Peritoneum: Body wall edema. Bladder: Distended bladder with gas. Reproductive: No adnexal masses. Bones: No acute fracture. Right hip arthroplasty. Multilevel degenerative changes are present in the spine. Other: n/a IMPRESSION: Excluding worsening body wall edema, no significant change compared with 03/06/2024. Thi s includes similar appearance of the locally aggressive pancreatic head mass with the common bile jessica t stent in place. Other observations as noted above.
[2024-03-26] MEDS: PHENAZOPYRIDINE 100MG TAB PO ONE (00:19)
[2024-03-26] MEDS: MORPHINE 4 MG/ML SYR IV ONE (00:20)
[2024-03-26 07:20] LABS: Absolute Basophils 0.1 K/uL (0-0.5); Absolute Eosinophils 0.2 K/uL (0-0.5); Absolute Lymphocytes (CBC) 3.8 K/uL (0.7-4.9); Absolute Monocytes 2.6 K/uL (0.1-1.3); Absolute Neutrophil 8.7 K/uL (1.8-8.0); Basophils % 0.4 % (0-1.3); Eosinophils % 1.2 % (0-4.4); Hematocrit 25.8 % (36.0-45.0); Hemoglobin 8.6 g/dL (12.0-15.0); Lymphocytes % 24.8 % (15.3-44.8); MCH 31.4 pg (27.0-35.0); MCHC 33.3 g/dL (32.0-36.0); MCV 94.5 fL (80-100); MPV 8.7 fL (7.6-11.3); Monocytes % 16.7 % (3.3-12.3); Neutrophils % 56.9 % (41.7-73.7); Nucleated RBC Absolute Count 0.1 (0-0); Nucleated Red Blood Cells % 0.8 % (0-0); Platelets 167 thou/uL (152-406); RBC Red Blood Cell Count 2.73 M/uL (3.86-4.86); Red Cell Distribution Width 14.6 % (12.1-15.2)
[2024-03-26 07:26] LABS: PT Prothrombin Time 21.9 SECONDS (9.5-12.5); PTT, Activated Partial Thromb 42.2 SECONDS (24.3-36.9); Protime INR 2.03
[2024-03-26 07:38] LABS: Albumin 1.3 g/dL (3.4-5.0); Albumin/Globulin Ratio 0.4 (1.1-1.8); Anion Gap 7.9 mEq/L (5.0-15.0); Bilirubin Direct 0.3 mg/dL (0-0.2); Bilirubin Indirect, Calculated 0.4 mg/dL (0.2-0.8); Bilirubin Total 0.7 mg/dL (0.2-1.0); Globulin 3.4 g/dL (2.3-3.5); Potassium 3.9 mEq/L (3.5-5.1); Protein, Total 4.7 g/dL (6.4-8.2)
--- NOTE | 2024-03-26 08:09 | P.PN ---
Subjective Date of Service: 03/26/24 Primary Care Provider: Susan Chief Complaint: sepsis, diabetic wound left foot Admitted for generalized weakness, report has declined in shelter facility, family wants patient to discharge home, History of pancreatic cancer stage III on chemotherapy, left diabetic foot wound, IV vancomycin and cefepime, - Physical Exam General alert and oriented, pale, HEENT: Other (unfocused gaze) Neck: Supple Respiratory: Clear to auscultation bilaterally Cardiovascular: (tachycardic) Capillary refill: <2 Seconds Gastrointestinal: Other (soft brown stools, painful rectum with left hemorrhoid), Masses (right upper quad with bulging/full area ) Musculoskeletal: Other (left heel with dressing, mild dorsal edema ) Integumentary: Other (pallor, erythema over dosum of knuckles to bilateral hands) Neurological: Abnormal speech, Abnormal tone, Abnormal affect Lymphatics: No axilla or inguinal lymphadenopathy Review of Systems Per HPI Physical Examination - Vital Signs Temperature: 97.6 F Blood Pressure: 142/59 Pulse: 87 Respirations: 18 Pulse Ox (%): 95 - Studies Medications List Reviewed: Yes Assessment And Plan - Plan Assessment plan New onset paroxysmal a. fib with RVR (new for pt). Continue lower dose nifedipine. 03/21/24 Start Sotalol 80mg po BID, EKG post thir d dose 03/22 converted to NSR 03/25 Sinus tach, pt with some hypotension Pancreatic cancer stage 3a: Currently on chemotherapy. She sees Dr. Davis. Supposed to have Chemo tx - 03/22 held Leukocytosis likely secondary from diabetic foot Left foot diabetic wound: Will continue iv Vanc and cefepime, f/u wound cx and continue wound care. 03/22 p ost op, will check sensitivities 03/23 vanc and rocephin set up for home - Cancelled, will cleanse with santyl and elevate per Dr George wound care directions. Midline placed so will go ahead and continue Rocephin 1 gm IVPB daily, 03/25 WBC up significantly today, will switch to Cefepime 1gm IVPB BID Left heel wound culture but the resistant Staph aureus-will add cipro BID IV Blood cultures negative Elevated D-dimer: D-dimer is 1834. CTA chest is negative for PE. Lovenox 90 mg/kg sc BID since 03/20 at present, 03/23 switched to Eliquis 5mg po BID Right pleural effusion: Per CTA chest. Will monitor resp status. Nebs, pulmonary toilet Microcytic anemia Trend H&H transfuse less than 7 DM II: Continue accuchek, SSI and ADA diet - stopped eating, clear liquid diet Htn: Continue home meds Thyroid dz: Will check TSH. DVT ppx: SCD/lovenox 03/20/24 Generalized weakness: pt and family request PT consult, unable to participate much 2nd to weakness. 03/23/24 Declines SNF. Pt states she wants to go home. Daughter at bedside. Disposition plan for home health. Daughter uncomfortable with discharge today. Hospital bed and [facility] orders sent for home health. 03/25 pt signiciantly declined overnight. Tried to speak with Daughter about making pt comfortable as her pressures are low but she requires more pain medications so need to hold some other medications like Nicardipine, Sotalol, lasix. Pt is pale, eyes unfocused, uncomfortable. Will continue to address comfort care with Daughter. Code: full Discharge Plan: Home Critical Care: No Time Spent Managing PTS Care (In Minutes): 35
[2024-03-26 08:23] LABS: Differential Total Cells Count 100; Lymphocytes 24 % (15-42); Segmented Neutrophils 63 % (40-80)
[2024-03-26 08:24] LABS: Anisocytosis 1+; Blood Morphology Comment NOTED (NOT SEEN); Hypochromasia 1+; Monocytes 13 % (0-10); Platelet Estimate ADEQ
[2024-03-26] MEDS: LEVALBUTEROL 1.25 MG/3 ML NEB NEB PRN (09:37)
[2024-03-26] MEDS: IPRATROPIUM BROM 0.5MG/2.5ML NEB PRN (09:37)
--- NOTE | 2024-03-26 12:07 | EKG ---
Test Date: 2024-03-22 Test Time: 18:06:59 Office Assistant Receptionist: LING MEASUREMENT RESULTS: Intervals: Rate: 95 MT: 208 QRSD: 100 QT: 372 QTc: 467 [place]: P: 74 MT: 208 QRS: 86 T: 98 INTERPRETIVE STATEMENTS: Normal sinus rhythm Low voltage QRS Cannot rule out Anterior infarct, age undetermined Abnormal ECG Compared to ECG 03/21/2024 16:59:22 Low QRS voltage now present Myocardial infarct finding now present T-wave abnormality no longer present Electronically Signed On 03-26-24 12:04:35 CDT by Rolo Baldwin
[2024-03-26] MEDS ORDERED: CIPROFLOXACIN 400mg IV 400 MG/200 ML BAG IV SCH ×2 (18:00)
[2024-03-26] MEDS: AMITRIPTYLINE 25 MG TAB PO SCH (21:16)
[2024-03-26] MEDS: DOXYCYCLINE 100 MG in NA CHLORIDE 0.9% 100 ML IVPB SCH (21:16)
[2024-03-27 03:53] LABS: Absolute Basophils 0.1 K/uL (0-0.5); Absolute Eosinophils 0.2 K/uL (0-0.5); Absolute Lymphocytes (CBC) 3.7 K/uL (0.7-4.9); Absolute Monocytes 2.4 K/uL (0.1-1.3); Absolute Neutrophil 5.5 K/uL (1.8-8.0); Basophils % 0.9 % (0-1.3); Eosinophils % 1.5 % (0-4.4); Hematocrit 25.1 % (36.0-45.0); Hemoglobin 8.4 g/dL (12.0-15.0); Lymphocytes % 31.4 % (15.3-44.8); MCH 31.7 pg (27.0-35.0); MCHC 33.3 g/dL (32.0-36.0); MCV 95.2 fL (80-100); MPV 8.8 fL (7.6-11.3); Neutrophils % 46.3 % (41.7-73.7); Nucleated RBC Absolute Count 0.1 (0-0); Platelets 155 thou/uL (152-406); RBC Red Blood Cell Count 2.63 M/uL (3.86-4.86); Red Cell Distribution Width 14.8 % (12.1-15.2)
[2024-03-27 03:55] LABS: Monocytes % 19.9 % (3.3-12.3)
[2024-03-27 07:54] LABS: Anion Gap 6.6 mEq/L (5.0-15.0); Potassium 3.6 mEq/L (3.5-5.1)
--- NOTE | 2024-03-27 07:56 | P.PN ---
Subjective Date of Service: 03/27/24 Primary Care Provider: Susan Chief Complaint: sepsis, diabetic wound left foot Admitted for generalized weakness, report has declined in senior living facility, family wants patient to discharge home, History of pancreatic cancer stage III on chemotherapy, left diabetic foot wound, IV vancomycin and cefepime,-vancomycin discontinued, Leukocytosis improving on IV antibiotics doxycy added - Physical Exam General alert and oriented, pale, HEENT: Other (unfocused gaze) Neck: Supple Respiratory: Clear to auscultation bilaterally Cardiovascular: (tachycardic) Capillary refill: <2 Seconds Gastrointestinal: Other (soft brown stools, painful rectum with left hemorrhoid), Masses (right upper quad with bulging/full area ) Musculoskeletal: Other (left heel with dressing, mild dorsal edema ) Integumentary: Other (pallor, erythema over dosum of knuckles to bilateral hands) Neurological: Abnormal speech, Abnormal tone, Abnormal affect Lymphatics: No axilla or inguinal lymphadenopathy Review of Systems per HPI Physical Examination - Vital Signs Temperature: 97.6 F Blood Pressure: 111/53 Pulse: 72 Respirations: 18 Pulse Ox (%): 97 - Studies Medications List Reviewed: Yes Assessment And Plan - Plan Assessment plan New onset paroxysmal a. fib with RVR (new for pt). Continue lower dose nifedipine. 03/21/24 Start Sotalol 80mg po BID, EKG post third dose 03/22 converted to NSR 03/25 Sinus tach, pt with some hypotension Pancreatic cancer stage 3a: Currently on chemotherapy. She sees Dr. Davis. Supposed to have Chemo tx - 03/22 held Leukocytosis likely secondary from diabetic foot Left foot diabetic wound: Will continue iv Vanc and cefepime, f/u wound cx and continue wound care. 03/22 post op, will check sensitivities 03/23 vanc and rocephin set up for home - Cancelled, will cleanse with santyl and elevate per Dr George wound care directions. Midline placed so will go ahead and continue Rocephin 1 gm IVPB daily, 03/25 WBC up significantly today, will switch to Cefepime 1gm IVPB BID Left heel wound culture but the resistant Staph aureus-will add cipro BID IV Blood cultures negative Elevated D-dimer: D-dimer is 1834. CTA chest is negative for PE. Lovenox 90 mg/kg sc BID since 03/20 at present, 03/23 switched to Eliquis 5mg po BID Right pleural effusion: Per CTA chest. Will monitor resp status. Nebs, pulmonary toilet Microcytic anemia Trend H&H transfuse less than 7 DM II: Continue accuchek, SSI and ADA diet - stopped eating, clear liquid diet Htn: Continue home meds Thyroid dz: Will check TSH. DVT ppx: SCD/lovenox 03/20/24 Generalized weakness: pt and family request PT consult, unable to participate much 2nd to weakness. 03/23/24 Declines SNF. Pt states she wants to go home. Daughter at bedside. Disposition plan for home health. Daughter uncomfortable with discharge today. Hospital bed and [facility] orders sent for home health. 03/25 pt signiciantly declined overnight. Tried to speak with Daughter about making pt comfortable as her pressures are low but she requires more pain medications so need to hold some other medications like Nicardipine, Sotalol, lasix. Pt is pale, eyes unfocused, uncomfortable. Will continue to address comfort care with Daughter. Code: full Discharge Plan: Home Critical Care: No Time Spent Managing PTS Care (In Minutes): 35
[2024-03-27] MEDS: Mupirocin NASAL 2 APPL/1 GM TUBE NAS SCH (08:55)
[2024-03-27] MEDS: CEFEPIME 1 GM in NA CHLORIDE 0.9% 100 ML IV SCH (21:16)
[2024-03-27 22:37] LABS: Albumin 1.3 g/dL (3.4-5.0); Albumin/Globulin Ratio 0.4 (1.1-1.8); Bilirubin Direct 0.3 mg/dL (0-0.2); Bilirubin Indirect, Calculated 0.4 mg/dL (0.2-0.8); Bilirubin Total 0.7 mg/dL (0.2-1.0); Globulin 3.4 g/dL (2.3-3.5); Protein, Total 4.7 g/dL (6.4-8.2)
[2024-03-28] MEDS: ALBUMIN HUMAN 25% 100 ML IV ONE (01:11)
[2024-03-28 01:53] LABS: Calcium Oxalate Crystals- Ur Few /HPF (None Seen); Sqamous Epithelial <5 /HPF (None Seen); Urine Bacteria <20 /HPF (<20); Urine Bilirubin NEGATIVE (Negative); Urine Blood 3+ (OVER) (Negative); Urine Clarity Extremely Turbid (Clear); Urine Color Yellow (Yellow); Urine Culture Reflex Order NOT NEEDED; Urine Glucose NEGATIVE (Negative); Urine Ketones NEGATIVE (Negative); Urine Micro Reflex YN NO BILL MICROSCOPIC; Urine Nitrite NEGATIVE (Negative); Urine Protein 1+ (Negative); Urine RBC >50 /HPF (None Seen); Urine Urobilinogen Normal (Normal); Urine WBC <5 /HPF (<5); Urine Yeast (Budding) Moderate /HPF (None Seen); Urine pH 5.5 (5.0-7.0)
[2024-03-28 07:00] LABS: Absolute Eosinophils 0.2 K/uL (0-0.5); Absolute Neutrophil 3.7 K/uL (1.8-8.0); Basophils % 0.3 % (0-1.3); Eosinophils % 1.8 % (0-4.4); Hematocrit 25.2 % (36.0-45.0); Hemoglobin 8.4 g/dL (12.0-15.0); Lymphocytes % 33.7 % (15.3-44.8); MCH 32.1 pg (27.0-35.0); MCHC 33.4 g/dL (32.0-36.0); MCV 96.1 fL (80-100); MPV 8.9 fL (7.6-11.3); Monocytes % 22.8 % (3.3-12.3); Neutrophils % 41.4 % (41.7-73.7); Nucleated RBC Absolute Count 0.1 (0-0); Nucleated Red Blood Cells % 1.2 % (0-0); Platelets 133 thou/uL (152-406); RBC Red Blood Cell Count 2.62 M/uL (3.86-4.86); Red Cell Distribution Width 14.8 % (12.1-15.2)
[2024-03-28 07:32] LABS: Albumin 1.6 g/dL (3.4-5.0); Albumin/Globulin Ratio 0.5 (1.1-1.8); Anion Gap 7.6 mEq/L (5.0-15.0); Bilirubin Total 0.9 mg/dL (0.2-1.0); Globulin 3.3 g/dL (2.3-3.5); Magnesium 2.1 mg/dL (1.6-2.4); Potassium 3.6 mEq/L (3.5-5.1); Protein, Total 4.9 g/dL (6.4-8.2); Thyroid Stimulating Hormone 0.986 uIU/mL (0.358-3.740)
--- NOTE | 2024-03-28 07:45 | P.PN ---
Subjective Date of Service: 03/28/24 Primary Care Provider: Susan Chief Complaint: sepsis, diabetic wound left foot Admitted for generalized weakness, report [facility] declined in [facility] facility, family wants patient to discharge home, History of pancreatic cancer stage III on chemotherapy, left diabetic foot wound, IV vancomycin and cefepime,-vancomycin discontinued, Leukocytosis improving on IV antibiotics doxycy added, WBCs trended down to normal - Physical Exam General alert and oriented, pale, HEENT: Other (unfocused gaze) Neck: Supple Respiratory: Clear to auscultation bilaterally Cardiovascular: (tachycardic) Capillary refill: <2 Seconds Gastrointestinal: Other (soft brown stools, painful rectum with left hemorrhoid), Masses (right upper quad with bulging/full area ) Musculoskeletal: Other (left heel with dressing, mild dorsal edema ) Integumentary: Other (pallor, erythema over dosum of knuckles to bilateral hands) Neurological: Abnormal speech, Abnormal tone, Abnormal affect Lymphatics: No axilla or inguinal lymphadenopathy Review of Systems Per HPI Physical Examination - Vital Signs Temperature: 97.6 F Blood Pressure: 111/53 Pulse: 72 Respirations: 18 Pulse Ox (%): 97 - Studies Medications List Reviewed: Yes Assessment And Plan - Plan Assessment plan New onset paroxysmal a. fib with RVR (new for pt). Continue lower dose nifedipine. 03/21/24 Start Sotalol 80mg po BID, EKG post third dose 03/22 converted to NSR 03/25 Sinus tach, pt with some hypotension Pancreatic cancer stage 3a: Currently on chemotherapy. She sees Dr. Davis. Supposed to have Chemo tx - 03/22 held Leukocytosis likely secondary from diabetic foot Left foot diabetic wound: Improving Will continue iv Vanc and cefepime, f/u wound cx and continue wound care. 03/22 post op, will check sensitivities 03/23 vanc and rocephin set up for home - Cancelled, will cleanse with santyl and elevate per Dr George wound care directions. Midline placed so will go ahead and continue Rocephin 1 gm IVPB daily, 03/25 WBC up significantly today, will switch to Cefepime 1gm IVPB BID Left heel wound culture but the resistant Staph aureus-will add cipro BID IV- changed to cefepime, Doxy Blood cultures negative Elevated D-dimer: D-dimer is 1834. CTA chest is negative for PE. Lovenox 90 mg/kg sc BID since 03/20 at present, 03/23 switched to Eliquis 5mg po BID Right pleural effusion: Per CTA chest. Will monitor resp status. Nebs, pulmonary toilet Microcytic anemia Trend H&H transfuse less than 7 Transaminitis Trend AST ALT DM II: Continue accuchek, SSI and ADA diet - stopped eating, clear liquid diet Htn: Continue home meds Thyroid dz: Will check TSH. DVT ppx: SCD/lovenox 03/20/24 Generalized weakness: pt and family request PT consult, unable to participate much 2nd to weakness. 03/23/24 Declines SNF. Pt states she wants to go home. Daughter at bedside. Disposition plan for home health. Daughter uncomfortable with discharge today. Hospital bed and [facility] orders sent for home health. 03/25 pt signiciantly declined overnight. Tried to speak with Daughter about making pt comfortable as her pressures are low but she requires more pain medications so need to hold some other medications like Nicardipine, Sotalol, lasix. Pt is pale, eyes unfocused, uncomfortable. Will continue to address comfort care with Daughter. Code: full Discharge Plan: Home Critical Care: No Time Spent Managing PTS Care (In Minutes): 35
[2024-03-28] MEDS: ONDANSETRON 4 MG/2 ML VIAL ONE (11:10)
[2024-03-28] MEDS ORDERED: ONDANSETRON 4 MG/2 ML VIAL IV PRN (11:11)
[2024-03-28] MEDS: PROMETHAZINE INJ 25 MG/ML AMP IV ONE (11:27)
[2024-03-28] MEDS: HYDROCORTISONE ACETATE 25MG SUPP PR ONE (17:56)
[2024-03-29] MEDS: MORPHINE 4 MG/ML SYR IV PRN (02:26)
--- NOTE | 2024-03-29 07:47 | P.DS ---
Admission Date: 03/19/24 Discharge Date: 03/29/24 Primary Care Provider: Susan Disposition: TRANSFER TO SENIOR LIVING Discharge Condition: GOOD Reason for Admission: sepsis, diabetic wound left foot Brief History of Present Illness: Pt is a 74 yo female with past medical history of Stage 3a pancreatic cancer, DM II, Htn, and thyroid disease who presents with SOB and palpitation. Her daughter reports that pt felt lightheaded while trying to get on the wheelchair. She felt weak and was unable to accomplish the task. This made her come to the ER for evaluation. On admission, lab studies show wbc 10.2, Hgb 10.1, K 3.5, Cr 0.99, D-dimer 1834, lactate 2.6 and BNP 5038. CXR has left pleural effusion. At bedside, pt is in NAD. - Physical Exam General: Alert, In no apparent distress, Oriented x3, Other (pale) HEENT: Atraumatic, Normocephalic Neck: Supple Respiratory: Diminished Cardiovascular: Regular rate/rhythm (tachycardic) Capillary refill: <2 Seconds Gastrointestinal: Non-distended Musculoskeletal: No clubbing Integumentary: Diabetic ulcer (left heel - placed placenta but pt states became more erythematous, painful, and malodorous), Other (pallor) Neurological: Normal speech, Normal affect, Abnormal strength Lymphatics: No axilla or inguinal lymphadenopathy Hospital Course: 74 yo female with past medical history of Stage 3a pancreatic cancer, DM II, Htn, and thyroid disease who presents with SOB and palpitation. Her daughter reports that pt felt lightheaded while trying to get on the wheelchair. She felt weak and was unable to accomplish the task. Admitted for generalized weakness, report has declined in residential facility, family wants patient to discharge home, patient is max assist, social security assessor to eval for discharge planning prior to discharge. History of pancreatic cancer stage III on chemotherapy, left diabetic foot wound, IV vancomycin and cefepime,-vancomycin discontinued, Leukocytosis improving on IV antibiotics doxycy added, WBCs trended down to normal while inpatient plan to transition to residential facility after discharge, patient will have continued physical therapy, max assist with care, patient is tolerating diet plan to discharge patient follow-up with oncology after discharge, follow-up with primary care for Assessment New onset A-fib RVR, started on sotalol, converted to sinus rhythm after medication initiation Pancreatic cancer stage 3a: Currently on chemotherapy. She sees Dr. Davis. Left foot diabetic wound: Will continue iv Vanc and cefepime, f/u wound cx and continue wound care. Leukocytosis improving on IV antibiotics doxycy added, WBCs trended down to normal while inpatient Congestive heart failure, elevated BNP 5053-gentle diuresis, Elevated D-dimer CTA of the chest negative for PE, treated with Lovenox 1 mg/kg during hospital stay transition to [facility] Continue home medicines as previously prescribed GOAL: Clear understanding of disease process INSTRUCTIONS: Physician Discharge Instructions: -Follow-up with PCP in 1 to 2 weeks -Please call Dr. Okeefe at [phone] if any questions regarding hospital stay -Please call nursing station at [phone] if any nursing or medication questions -Return to the emergency room if symptoms worsen Diet: ADA, low sodium Activity: Fall precautions Vital Signs/Physical Exam: Temp Pulse Resp BP Pulse Ox 97.6 F 72 18 111/53 L 97 03/29/24 07:38 03/29/24 07:38 03/29/24 07:38 03/29/24 07:38 03/29/24 07:38 Laboratory Data at Discharge: WBC 8.90 thou/uL (4.3-10.9) 03/28/24 06:38 Hgb 8.4 g/dL (12.0-15.0) L 03/28/24 06:38 Hct 25.2 % (36.0-45.0) L 03/28/24 06:38 Plt Count 133 thou/uL (152-406) L 03/28/24 06:38 PT 21.9 SECONDS (9.5-12.5) H 03/26/24 07:10 INR 2.03 03/26/24 07:10 APTT 42.2 SECONDS (24.3-36.9) H 03/26/24 07:10 Sodium 134 mEq/L (136-145) L 03/28/24 06:38 Potassium 3.6 mEq/L (3.5-5.1) 03/28/24 06:38 BUN 19 mg/dL (7-18) H 03/28/24 06:38 Creatinine 1.01 mg/dL (0.55-1.02) 03/28/24 06:38 Glucose 127 mg/dL (74-106) H 03/28/24 06:38 Phosphorus 2.6 mg/dL (2.5-4.9) 03/22/24 03:29 Magnesium 2.1 mg/dL (1.6-2.4) 03/28/24 06:38 Total Bilirubin 0.9 mg/dL (0.2-1.0) 03/28/24 06:38 AST 135 U/L (15-37) H 03/28/24 06:38 ALT 47 U/L (13-56) 03/28/24 06:38 Alkaline Phosphatase 122 U/L (45-117) H 03/28/24 06:38 Triglycerides 132 mg/dL (<150) 03/20/24 08:15 Cholesterol 87 mg/dL (<200) 03/20/24 08:15 HDL Cholesterol 27 mg/dL (40-60) L 03/20/24 08:15 Cholesterol/HDL Ratio 3.22 03/20/24 08:15 Home Medications: Cyclobenzaprine [Flexeril*] 1 tab PO TID PRN 01/22/21 Dapagliflozin Propanediol [Farxiga] 1 tab PO DAILY 01/22/21 Famotidine [Pepcid] 4 tab PO BEDTIME 01/22/21 Lortab 7.5 Mg 1 tab PO TID PRN 01/22/21 Milnacipran HCl [Savella] 1 tab PO BID 6AM 6PM 01/22/21 Nifedipine [Procardia Xl] 1 tab PO DAILY 01/22/21 Amitriptyline [Elavil*] 75 mg PO BEDTIME 04/04/23 Cholecalciferol (Vitamin D3) [Vitamin D 5,000 IU Cap*] 1 cap PO BEDTIME 04/04/23 Docusate Sodium 100 mg PO BID 04/04/23 Insulin Degludec [Tresiba] 16 unit SQ DAILY 04/04/23 Levothyroxine [Synthroid] 0.3 mg PO [id number] 04/04/23 Meclizine HCl 25 mg PO PRN PRN 04/04/23 Pioglitazone HCl [Actos] 15 mg PO PRN PRN 04/04/23 Docusate Sodium [Stool Softener] 50 mg PO BID* 03/20/24 Hydrocodone 5/APAP 325 [[place] 5/325] 1 tab PO Q6H PRN 03/20/24 Pantoprazole Sodium [Protonix] 40 mg PO BID* 03/20/24 Prochlorperazine Maleate [Compazine] 10 mg PO DAILYPRN PRN 03/20/24 Sennosides [Senokot] 8.6 mg PO BID* 03/20/24 Ropinirole HCl [Requip] 1 mg PO TID 03/22/24 Physician Discharge Instructions: 74 yo female with past medical history of Stage 3a pancreatic cancer, DM II, Htn, and thyroid disease who presents with SOB and palpitation. Her daughter reports that pt felt lightheaded while trying to get on the wheelchair. She felt weak and was unable to accomplish the task. Admitted for generalized weakness, report has declined in residential facility, family wants patient to discharge home, patient is max assist, social security assessor to eval for discharge planning prior to discharge. History of pancreatic cancer stage III on chemotherapy, left diabetic foot wound, IV vancomycin and cefepime,-vancomycin discontinued, Leukocytosis improving on IV antibiotics doxycy added, WBCs trended down to normal while inpatient plan to transition to residential facility after discharge, patient will have continued physical therapy, max assist with care, patient is tolerating diet plan to discharge patient follow-up with oncology after discharge, follow-up with primary care after discharge Assessment New onset A-fib RVR, started on sotalol, converted to sinus rhythm after medication initiation Pancreatic cancer stage 3a: Currently on chemotherapy. She sees Dr. Davis. Left foot diabetic wound: Will continue iv Vanc and cefepime, f/u wound cx and continue wound care. Leukocytosis improving on IV antibiotics doxycy added, WBCs trended down to normal while inpatient Congestive heart failure, elevated BNP 5053-gentle diuresis, Elevated D-dimer CTA of the chest negative for PE, treated with Lovenox 1 mg/kg during hospital stay transition to Eliquis Continue home medicines as previously prescribed GOAL: Clear understanding of disease process INSTRUCTIONS: Physician Discharge Instructions: -Follow-up with PCP in 1 to 2 weeks -Please call Dr. Okeefe at [phone] if any questions regarding hospital stay -Please call nursing station at [phone] if any nursing or medication questions -Return to the emergency room if symptoms worsen Diet: ADA, low sodium Activity: Fall precautions Diet: ADA Activity: Fall precautions Followup: Rolo Baldwin MD [ACTIVE - CAN ADMIT] - Alla Davis MD [ACTIVE - CAN ADMIT] - Orlin George MD [ACTIVE - CAN ADMIT] - Ramiro Coe MD [ACTIVE - CAN ADMIT] - Time spent managing pt's care (in minutes): 55
[2024-03-29] MEDS: DOXYCYCLINE 100 MG CAP PO SCH (08:20)
[2024-03-29 08:28] LABS: Absolute Eosinophils 0.1 K/uL (0-0.5); Absolute Lymphocytes (CBC) 2.5 K/uL (0.7-4.9); Absolute Monocytes 1.9 K/uL (0.1-1.3); Absolute Neutrophil 3.1 K/uL (1.8-8.0); Basophils % 0.4 % (0-1.3); Eosinophils % 1.3 % (0-4.4); Hemoglobin 8.7 g/dL (12.0-15.0); MCH 32.2 pg (27.0-35.0); MCHC 33.3 g/dL (32.0-36.0); MCV 96.8 fL (80-100); MPV 8.8 fL (7.6-11.3); Monocytes % 24.8 % (3.3-12.3); Neutrophils % 40.5 % (41.7-73.7); Nucleated RBC Absolute Count 0.1 (0-0); Nucleated Red Blood Cells % 1.4 % (0-0); Platelets 133 thou/uL (152-406); RBC Red Blood Cell Count 2.69 M/uL (3.86-4.86); Red Cell Distribution Width 14.8 % (12.1-15.2)
[2024-03-29 09:41] LABS: Differential Total Cells Count 100; Eosinophils 1 % (0-3); Lymphocytes 26 % (15-42); Metamyelocytes 1 % (0-0); Monocytes 12 % (0-10); Nucleated Red Blood Cells 4 /100WBC; Segmented Neutrophils 60 % (40-80)
[2024-03-29 09:42] LABS: Anisocytosis 2+; Blood Morphology Comment NOTED (NOT SEEN); Platelet Estimate DECR; Polychromasia 2+
--- NOTE | 2024-03-29 09:49 | P.PN ---
Subjective Date of Service: 03/29/24 Primary Care Provider: Susan Chief Complaint: sepsis, diabetic wound left foot Admitted for generalized weakness, History of pancreatic cancer stage III on chemotherapy, left diabetic foot wound, IV vancomycin and cefepime, transition to p.o. doxycycline PT following patient for PT eval, patient max assist, No reported pain or fever, Bladder scan ordered to evaluate urinary retention Review of Systems per HPI Physical Examination - Vital Signs Temperature: 97.2 F Blood Pressure: 112/51 Pulse: 74 Respirations: 16 Pulse Ox (%): 96 - Studies Medications List Reviewed: Yes Assessment And Plan - Plan Assessment plan New onset paroxysmal a. fib with RVR new onset lowered dose nifedipine. 03/21/24 Start Sotalol 80mg po BID, EKG post third dose 03/22 converted to NSR 03/25 Sinus tach, pt with some hypotension Pancreatic cancer stage 3a: Currently on chemotherapy. Follows with Dr. Davis. Supposed to have Chemo tx - 03/22 held Leukocytosis likely secondary from diabetic foot Left foot diabetic wound: Improving Will continue iv Vanc and cefepime, f/u wound cx and continue wound care. 03/22 post op, will check sensitivities 03/23 vanc and rocephin set up for home - Cancelled, will cleanse with santyl and elevate per Dr George wound care directions. Midline placed so will go ahead and continue Rocephin 1 gm IVPB daily, 03/25 WBC up significantly today, will switch to Cefepime 1gm IVPB BID Left heel wound culture but the resistant Staph aureus-will add cipro BID IV- changed to cefepime, Doxy Blood cultures negative 03/29 transition to Doxy p.o. Elevated D-dimer: D-dimer is 1834. CTA chest is negative for PE. Lovenox 90 mg/kg sc BID since 03/20 at present, 03/23 switched to Eliquis 5mg po BID Right pleural effusion: Per CTA chest. Will monitor resp status. Nebs, pulmonary toilet Microcytic anemia transfuse less than 7 Trend hemoglobin hematocrit Transaminitis Trend AST ALT Avoid hepatotoxic medication DM II: Continue accuchek, SSI and ADA diet - stopped eating, clear liquid diet Htn: Continue home meds Thyroid dz: Will check TSH. DVT ppx: SCD/lovenox 03/20/24 Generalized weakness: pt and family request PT consult, unable to participate much 2nd to weakness. 03/23/24 Declines SNF. Pt states she wants to go home. Daughter at bedside. PT max assist with transfers Disposition plan for home health versus assisted facility Previously daughter uncomfortable with discharge today. Hospital bed and [facility] orders sent for home health. 03/25 pt signiciantly declined overnight. Tried to speak with Daughter about making pt comfortable as her pressures are low but she requires more pain medications so need to hold some other medications like Nicardipine, Sotalol, lasix. Pt is pale, eyes unfocused, uncomfortable. Will continue to address comfort care with Daughter. Code: full Discharge Plan: Group Home Time Spent Managing PTS Care (In Minutes): 35
[2024-03-29] MEDS: PROCHLORPERAZINE 5 MG TAB PO PRN (11:20)
[2024-03-29] MEDS: ALTEPLASE 2 MG/VIAL IV SCH ×2 (11:47→13:43)
[2024-03-29] MEDS: HYDROCORTISONE ACETATE 25MG SUPP PR PRN (13:42)
[2024-03-30 04:36] LABS: Absolute Eosinophils 0.2 K/uL (0-0.5); Absolute Lymphocytes (CBC) 2.6 K/uL (0.7-4.9); Absolute Monocytes 1.6 K/uL (0.1-1.3); Absolute Neutrophil 2.7 K/uL (1.8-8.0); Basophils % 0.4 % (0-1.3); Eosinophils % 2.3 % (0-4.4); Hematocrit 22.2 % (36.0-45.0); Hemoglobin 7.4 g/dL (12.0-15.0); Lymphocytes % 36.6 % (15.3-44.8); MCH 32.3 pg (27.0-35.0); MCHC 33.2 g/dL (32.0-36.0); MCV 97.2 fL (80-100); MPV 9.1 fL (7.6-11.3); Neutrophils % 38.5 % (41.7-73.7); Nucleated RBC Absolute Count 0.1 (0-0); Nucleated Red Blood Cells % 0.8 % (0-0); Platelets 129 thou/uL (152-406); RBC Red Blood Cell Count 2.28 M/uL (3.86-4.86); Red Cell Distribution Width 14.6 % (12.1-15.2)
[2024-03-30 04:39] LABS: Monocytes % 22.2 % (3.3-12.3)
[2024-03-30] MEDS: MECLIZINE HCL 12.5 MG TAB PO PRN (10:12)
--- NOTE | 2024-03-31 07:20 | P.PN ---
Date of Service: 04/01/24 Subjective Admitted for generalized weakness, History of pancreatic cancer stage III on chemotherapy, left diabetic foot wound, IV vancomycin and cefepime, transition PT following patient for PT nishaal, patient max assist, pending intermediate facility prior authorization Review of Systems per HPI Physical Examination - Vital Signs Reviewed - Physical Exam General alert oriented, x 3 Respiratory: Clear to auscultation bilaterally Cardiovascular: Regular rate and rhythm Capillary refill: <2 Seconds Gastrointestinal: Other mild tenderness, Masses (right upper quad with bulging/full area ) Musculoskeletal: Other (left heel with dressing, mild dorsal edema dry and intac t) Integumentary: Other (pallor, erythema over dosum of knuckles to bilateral hands) Musculoskeletal generalized weak Neurological: Abnormal speech, Abnormal tone, Abnormal affect Lymphatics: No axilla or inguinal lymphadenopathy Assessment And Plan - Plan Assessment plan New onset paroxysmal a. fib with RVR (new for pt). Continue lower dose nifedipine. 03/21/24 Start Sotalol 80mg po BID, EKG post third dose 03/22 converted to NSR 03/25 Sinus tach, pt with some hypotension Pancreatic cancer stage 3a: Currently on chemotherapy. She sees Dr. Davis. Supposed to have Chemo tx - 03/22 held Follow-up with oncology after the Leukocytosis likely secondary from diabetic foot Left foot diabetic wound: Improving Will continue iv Vanc and cefepime, f/u wound cx and continue wound care. 03/22 post op, will check sensitivities 03/23 vanc and rocephin set up for home - Cancelled, will cleanse with santyl and elevate per Dr George wound care directions. Midline placed so will go ahead and continue Rocephin 1 gm IVPB daily, 03/25 WBC up significantly today, will switch to Cefepime 1gm IVPB BID Left heel wound culture but the resistant Staph aureus-will add cipro BID IV- changed to cefepime, Doxy p.o. Blood cultures negative Elevated D-dimer: D-dimer is 1834. CTA chest is negative for PE. Lovenox 90 mg/kg sc BID since 03/20 at present, 03/23 switched to Eliquis 5mg po BID Right pleural effusion: Per CTA chest. Will monitor resp status. Nebs, pulmonary toilet Microcytic anemia Trend H&H transfuse less than 7 Transaminitis Trend AST ALT DM II: Continue accuchek, SSI and ADA diet - stopped eating, clear liquid diet Htn: Continue home meds Thyroid dz: Will check TSH. DVT ppx: SCD/lovenox 03/20/24 Generalized weakness: pt and family request PT consult, unable to participate much 2nd to weakness. 03/23/24 Declines SNF. Pt states she wants to go home. Daughter at bedside. Disposition plan to transition to intermediate facility pending authorization Prior plan for home health. Daughter uncomfortable with discharge today. Hospital bed and [facility] orders sent for home health. 03/25 pt signiciantly declined overnight. Tried to speak with Daughter about making pt comfortable as her pressures are low but she requires more pain medications so need to hold some other medications like Nicardipine, Sotalol, lasix. Pt is pale, eyes unfocused, uncomfortable. Will continue to address comfort care with Daughter.
[2024-03-31 10:22] LABS: Absolute Eosinophils 0.1 K/uL (0-0.5); Absolute Lymphocytes (CBC) 2.3 K/uL (0.7-4.9); Absolute Monocytes 1.4 K/uL (0.1-1.3); Absolute Neutrophil 5.3 K/uL (1.8-8.0); Basophils % 0.5 % (0-1.3); Eosinophils % 1.1 % (0-4.4); Hematocrit 32.4 % (36.0-45.0); Lymphocytes % 25.4 % (15.3-44.8); MCH 32.2 pg (27.0-35.0); MCV 94.7 fL (80-100); MPV 8.8 fL (7.6-11.3); Monocytes % 15.4 % (3.3-12.3); Neutrophils % 57.6 % (41.7-73.7); Nucleated RBC Absolute Count 0.1 (0-0); Nucleated Red Blood Cells % 0.5 % (0-0); Platelets 151 thou/uL (152-406); RBC Red Blood Cell Count 3.42 M/uL (3.86-4.86); Red Cell Distribution Width 14.7 % (12.1-15.2)
[2024-03-31 10:49] LABS: Anion Gap 8.4 mEq/L (5.0-15.0); Magnesium 2.1 mg/dL (1.6-2.4); Potassium 3.4 mEq/L (3.5-5.1)
[2024-03-31] MEDS: POTASSIUM CL SA 10 MEQ TAB PO ONE ×2 (15:36→23:28)
[2024-03-31] MEDS: SOD FERRIC GLUC COMPLX/SUCROSE 125 MG in NA CHLORIDE 0.9% 100 ML IV SCH (22:15)
[2024-04-01 06:22] LABS: Absolute Basophils 0.1 K/uL (0-0.5); Absolute Eosinophils 0.3 K/uL (0-0.5); Absolute Monocytes 2.2 K/uL (0.1-1.3); Absolute Neutrophil 6.8 K/uL (1.8-8.0); Basophils % 0.8 % (0-1.3); Eosinophils % 2.1 % (0-4.4); Hematocrit 32.2 % (36.0-45.0); Hemoglobin 10.9 g/dL (12.0-15.0); Lymphocytes % 24.3 % (15.3-44.8); MCH 32.2 pg (27.0-35.0); MCHC 33.8 g/dL (32.0-36.0); MCV 95.2 fL (80-100); Neutrophils % 54.8 % (41.7-73.7); Nucleated Red Blood Cells % 0.3 % (0-0); Platelets 164 thou/uL (152-406); RBC Red Blood Cell Count 3.38 M/uL (3.86-4.86); Red Cell Distribution Width 15.5 % (12.1-15.2)
[2024-04-01 06:54] LABS: Albumin 1.4 g/dL (3.4-5.0); Albumin/Globulin Ratio 0.4 (1.1-1.8); Anion Gap 5.6 mEq/L (5.0-15.0); Bilirubin Total 6.7 mg/dL (0.2-1.0); Globulin 3.6 g/dL (2.3-3.5); Potassium 3.6 mEq/L (3.5-5.1)
[2024-04-01 07:37] LABS: Atypical Lymphocytes 1 %; Band Neutrophils 2 % (0-1); Basophilic Stippling 1+; Blood Morphology Comment NOTED (NOT SEEN); Differential Total Cells Count 100; Eosinophils 2 % (0-3); Lymphocytes 24 % (15-42); Monocytes 12 % (0-10); Platelet Estimate ADEQ; Segmented Neutrophils 57 % (40-80)
[2024-04-01] MEDS: POTASSIUM CL SA 10 MEQ TAB PO ONE (10:49)
--- NOTE | 2024-04-01 17:42 | P.DS ---
Discharge Date: 04/01/24 Primary Care Provider: Susan Disposition: TRANSFER TO ASSISTED Discharge Condition: GOOD Reason for Admission: sepsis, diabetic wound left foot Consultations: General surgery, Dr. George Brief History of Present Illness: Pt is a 74 yo female with past medical history of Stage 3a pancreatic cancer, DM II, Htn, and thyroid disease who presents with SOB and palpitation. Her daughter reports that pt felt lightheaded while trying to get on the wheelchair. She felt weak and was unable to accomplish the task. This made her come to the ER for evaluation. On admission, lab studies show wbc 10.2, Hgb 10.1, K 3.5, Cr 0.99, D-dimer 1834, lactate 2.6 and BNP 5038. CXR has left pleural effusion. At bedside, pt is in NAD. Hospital Course: Patient is a 74-year-old female came to the hospital with a diabetic left foot ulcer. Patient has a history of pancreatic cancer stage IIIa. Patient had has been on chemotherapy. Patient is developed some neuropathy and generalized weakness. She came to the emergency room because of the diabetic foot ulcer. Patient had developed secondary cellulitis of the left foot. The wound was debrided by general surgery. Patient had a 6 x 6 cm area that was debrided, and patient was given IV antibiotics with vancomycin and cefepime. This was switched over to oral antibiotics as patient's wound has healed appropriately and will continue with local wound care-WOUND PACKED WET TO DRY 4X4 and NS. Patient's been really weak and she had some abdominal complaints during her hospital stay. We were not sure if she is having bladder spasms and she also had a hemorrhoid that was causing her some discomfort. We used [facility] which alleviated some of her symptoms. Otherwise, patient has been trying to participate with physical therapy. She is try to get herself out of bed to stand. She is able to do that fairly well at this point. Plan was to get her to senior living facility. However repeat labs this morning showed her bilirubin has gone up. Direct bilirubin is pending. At this time, patient clinically stable and plan to transfer her to for further evaluation for obstructive jaundice. Vital Signs/Physical Exam: Temp Pulse Resp BP Pulse Ox 97.2 F 76 16 122/57 L 97 04/01/24 16:00 04/01/24 16:00 04/01/24 16:00 04/01/24 16:00 04/01/24 16:00 General: Alert, In no apparent distress, Oriented x3 Laboratory Data at Discharge: WBC 12.40 thou/uL (4.3-10.9) H 04/01/24 06:03 Hgb 10.9 g/dL (12.0-15.0) L 04/01/24 06:03 Hct 32.2 % (36.0-45.0) L 04/01/24 06:03 Plt Count 164 thou/uL (152-406) 04/01/24 06:03 PT 21.9 SECONDS (9.5-12.5) H 03/26/24 07:10 INR 2.03 03/26/24 07:10 APTT 42.2 SECONDS (24.3-36.9) H 03/26/24 07:10 Sodium 139 mEq/L (136-145) 04/01/24 06:03 Potassium 3.6 mEq/L (3.5-5.1) 04/01/24 06:03 BUN 22 mg/dL (7-18) H 04/01/24 06:03 Creatinine 0.83 mg/dL (0.55-1.02) 04/01/24 06:03 Glucose 148 mg/dL (74-106) H 04/01/24 06:03 Phosphorus 2.6 mg/dL (2.5-4.9) 03/22/24 03:29 Magnesium 2.0 mg/dL (1.6-2.4) 04/01/24 06:03 Total Bilirubin 6.7 mg/dL (0.2-1.0) H 04/01/24 06:03 AST 247 U/L (15-37) H 04/01/24 06:03 ALT 68 U/L (13-56) H 04/01/24 06:03 Alkaline Phosphatase 446 U/L (45-117) H 04/01/24 06:03 Triglycerides 132 mg/dL (<150) 03/20/24 08:15 Cholesterol 87 mg/dL (<200) 03/20/24 08:15 HDL Cholesterol 27 mg/dL (40-60) L 03/20/24 08:15 Cholesterol/HDL Ratio 3.22 03/20/24 08:15 Home Medications: Cyclobenzaprine [Flexeril*] 1 tab PO TID PRN 01/22/21 Dapagliflozin Propanediol [Farxiga] 1 tab PO DAILY 01/22/21 Famotidine [Pepcid] 4 tab PO BEDTIME 01/22/21 Lortab 7.5 Mg 1 tab PO TID PRN 01/22/21 Milnacipran HCl [Savella] 1 tab PO BID 6AM 6PM 01/22/21 Nifedipine [Procardia Xl] 1 tab PO DAILY 01/22/21 Amitriptyline [Elavil*] 75 mg PO BEDTIME 04/04/23 Cholecalciferol (Vitamin D3) [Vitamin D 5,000 IU Cap*] 1 cap PO BEDTIME 04/04/23 Docusate Sodium 100 mg PO BID 04/04/23 Insulin Degludec [Tresiba] 16 unit SQ DAILY 04/04/23 Levothyroxine [Synthroid] 0.3 mg PO [id number] 04/04/23 Meclizine HCl 25 mg PO PRN PRN 04/04/23 Pioglitazone HCl [Actos] 15 mg PO PRN PRN 04/04/23 Docusate Sodium [Stool Softener] 50 mg PO BID* 03/20/24 Hydrocodone 5/APAP 325 [[place] 5/325] 1 tab PO Q6H PRN 03/20/24 Pantoprazole Sodium [Protonix] 40 mg PO BID* 03/20/24 Prochlorperazine Maleate [Compazine] 10 mg PO DAILYPRN PRN 03/20/24 Sennosides [Senokot] 8.6 mg PO BID* 03/20/24 Ropinirole HCl [Requip] 1 mg PO TID 03/22/24 Physician Discharge Instructions: 74 yo female with past medical history of Stage 3a pancreatic cancer, DM II, Htn, and thyroid disease who presents with SOB and palpitation. Her daughter reports that pt felt lightheaded while trying to get on the wheelchair. She felt weak and was unable to accomplish the task. Admitted for generalized weakness, report has declined in senior living facility, family wants patient to discharge home, patient is max assist, manager social services to eval for discharge planning prior to discharge. History of pancreatic cancer stage III on chemotherapy, left diabetic foot wound, IV vancomycin and cefepime,-vancomycin discontinued, Leukocytosis improving on IV antibiotics doxycy added, WBCs trended down to normal while inpatient plan to transition to senior living facility after discharge, patient will have continued physical therapy, max assist with care, patient is tolerating diet plan to discharge patient follow-up with oncology after discharge, follow-up with primary care after discharge Assessment -New onset A-fib RVR, started on sotalol, eliquis; converted to sinus rhythm after medication initiation -Pancreatic cancer stage 3a: Currently on chemotherapy. She sees Dr. Davis. -Left foot diabetic wound: on oral antibiotics (Cx positive for MRSA) -Leukocytosis improving on doxycy added, WBCs trended down to normal while inpatient -Congestive heart failure, elevated BNP 5053-gentle diuresis, monitoring volume status Continue home medicines as previously prescribed GOAL: Clear understanding of disease process INSTRUCTIONS: Physician Discharge Instructions: -Please call Dr. Okeefe, hospitalist, at [phone] if any questions regarding hospital stay -Please call nursing station at [phone] if any nursing or medication questions -Arranged to go to [facility], in [place], [place] at discharge Diet: NPO Activity: Fall precautions Diet: NPO Activity: Fall precautions Followup: Rolo Baldwin MD [ACTIVE - CAN ADMIT] - Alla Davis MD [ACTIVE - CAN ADMIT] - Orlin George MD [ACTIVE - CAN ADMIT] - Ramiro Coe MD [ACTIVE - CAN ADMIT] - Time spent managing pt's care (in minutes): 35
[2024-04-01 18:39] LABS: Bilirubin Direct 5.5 mg/dL (0-0.2); Bilirubin Indirect, Calculated 1.4 mg/dL (0.2-0.8); Bilirubin Total 6.9 mg/dL (0.2-1.0)
[2024-04-01 19:04] LABS: Albumin 1.3 g/dL (3.4-5.0); Albumin/Globulin Ratio 0.4 (1.1-1.8); Bilirubin Direct 6.1 mg/dL (0-0.2); Bilirubin Indirect, Calculated 1.3 mg/dL (0.2-0.8); Bilirubin Total 7.4 mg/dL (0.2-1.0); Globulin 3.6 g/dL (2.3-3.5); Protein, Total 4.9 g/dL (6.4-8.2)
[2024-04-01 20:19] VITALS: O2SAT 97
[2024-04-01 20:42] VITALS: BP 119/62; TEMP 97.3
== END 2024-04-01 20:30 | disposition short-term general hospital (02) | DRG 853 ==
LOC: ER 12:37 → 2ND 17:43
PROVIDERS: ADMIT Hospitalist; ATTEND Hospitalist
PROC: 0T9B70Z Drainage of Bladder with Drainage Device, Via Natural or Artificial Opening (ICD-10-PCS; 2024-03-19)
PROC: 0JBR0ZZ Excision of Left Foot Subcutaneous Tissue and Fascia, Open Approach (ICD-10-PCS; principal; 2024-03-21 10:00)
DX: A41.9 Sepsis, unspecified organism (principal); I50.33 Acute on chronic diastolic (congestive) heart failure; E87.21 Acute metabolic acidosis; E11.52 Type 2 diabetes mellitus with diabetic peripheral angiopathy with gangrene; L97.422 Non-pressure chronic ulcer of left heel and midfoot with fat layer exposed; C25.9 Malignant neoplasm of pancreas, unspecified; N39.0 Urinary tract infection, site not specified; K31.84 Gastroparesis; E11.621 Type 2 diabetes mellitus with foot ulcer; E11.43 Type 2 diabetes mellitus with diabetic autonomic (poly)neuropathy; E66.01 Morbid (severe) obesity due to excess calories; I11.0 Hypertensive heart disease with heart failure; R65.20 Severe sepsis without septic shock; I48.0 Paroxysmal atrial fibrillation; R53.1 Weakness; B95.62 Methicillin resistant Staphylococcus aureus infection as the cause of diseases classified elsewhere; Z68.39 Body mass index [BMI] 39.0-39.9, adult; Z98.84 Bariatric surgery status
CPT/HCPCS: 36415; 51702; 71045; 71275; 74176; 76377; 80048; 80053; 80061; 80076; 80162; 80202; 81001; 82140; 82247; 82248; 82947; 83605; 83735; 83880; 84100; 84132; 84439; 84443; 84484; 85025; 85379; 85610; 85730; 86850; 86900; 86901; 86920; 87040; 87070; 87077; 87186; 87205; 88304; 88312; 93005; 93306; 93971; 94640; 96365; 96366; 96367; 97110; 97163; 97530; 97542; 99285; C9113; J0692; J0696; J1160; J1170; J1650; J1940; J2001; J2405; J2550; J2704; J2916; J2997; J3010; J3475; J3590; J7030; J7040; J7613; J7614; J7644; J8597; P9016; P9047; Q0164; Q9967